=== PATIENT | male | born 1950 | race Caucasian/White ===

== ENCOUNTER 2020-01-22 20:21 | Inpatient (IN) | payer MEDICARE, OTHER, SELFPAY ==
[2020-01-22] VITALS (22 sets, daily range): BP systolic 129–221; BP diastolic 72–123; PULSE 65–82; RESP 15–26; TEMP 36.5–37; O2SAT 93–97; BMI 26.4
--- NOTE | 2020-01-22 20:24 | EKG12_ITS ---
Test Reason : STROKE Blood Pressure : / mmHG Vent. Rate : 079 BPM Atrial Rate : 079 BPM P-R Int : 138 ms QRS Dur : 094 ms QT Int : 400 ms P-R-T Axes : 050 026 034 degrees QTc Int : 458 ms Normal sinus rhythm Normal ECG Confirmed by EDU MOJICA ([id number]), editor & co founder CHANDA JAIME ([id number] on 01/24/2020 11:15:07 AM Referred By: Jie Romo Confirmed By:EDU MOJICA
--- NOTE | 2020-01-22 20:24 | CT_ITS ---
STUDY: CT BRAIN WITHOUT CONTRAST REASON FOR EXAM: Male, 69 years old. CVA RADIATION DOSAGE (If Supplied By Facility): CTDIvol = ( 60.81 ) mGy, DLP = ( 1067.08 ) mGycm TECHNIQUE: Transaxial CT imaging of the brain was performed without administration of intravenous contrast material. Individualized dose optimization techniques were used for this CT. COMPARISON: No relevant priors. FINDINGS: Normal soft tissue structures. Normal calvarium. Normal size ventricles and extra-axial spaces for the patient''s age. Mild periventricular white matter ischemic changes.. Normal basal ganglia and thalami. Normal brainstem. Normal cerebellum. There is no intracranial hemorrhage. There are no findings of an acute ischemic infarction. There is mild mucosal thickening left maxillary sinus and moderate mucosal thickening of the ethmoid air cells.. CT/Brain/Head without Contrast IMPRESSION: Mild periventricular white matter ischemic changes. No evidence for acute bleed. If concern for acute infarct MRI recommended N.B. : The above information has been verbally conveyed by Jas Santa MD to Jac Beaulieu MD, on 01/22/2020 20:55:46 (ET). Electronically Signed: aJs Santa MD at 20:54 EDT , Service support ,
--- NOTE | 2020-01-22 20:25 | ED.DCSUM_ITS ---
History of Present Illness Chief Complaint: Neuro S/Sx Informant: Patient, Family Onset: Hours Context: Sudden Onset Timing: Continuous Quality and Location: Left Arm Parasthesia, Left Leg Parasthesia, Left Arm Weakness, Left Leg Weakness Current Severity: Moderate Maximum Severity: Moderate Worsened by: Nothing Relieved by: Nothing Associated Symptoms: Negative for: Headache, Nausea Narrative: Patient is elderly male who presents with acute strokelike symptoms consistent with a right hemispheric stroke. He has weakness left upper extremity and left leg. Darted at 1915. There is no prior history to stroke. Prior similar symptoms: No Recent Illness/Hospitalization: No Past Medical History - Allergies and Home Meds Allergies/Adverse Reactions: Allergies No Known Allergies Allergy (Verified 01/22/20 20:47) Primary Care Physician: Care Physician,No Primary [Primary Care Provider] - Review of Systems General: Denies: Chills, Fever Eyes: Denies: Visual changes - bilaterally, Blurred Vision - bilaterally, Diplopia ENT: Denies: Bilateral ear pain, Rhinorrhea Cardiovascular: Denies: Chest pain, Palpitations Respiratory: Denies: Dyspnea, Cough, Dyspnea on exertion Gastrointestinal: Denies: Abdominal pain, Nausea, Vomiting, Diarrhea Genitourinary: Denies: Dysuria, Hematuria Musculoskeletal: Denies: Myalgias, Arthralgias, Neck pain, Back pain, Swelling, Extremity Pain Neurological: Reports: Weakness. Denies: Headache, Parasthesia, Numbness Endocrine: Denies: Polyuria, Polydipsia STROKE Inital Vital Signs reviewed: Yes - NIHSS Initial 1a Level of Consciousness: 0 1b LOC Questions (Score 2 if aphasic/stupor): 0 1c LOC Commands (Only score 1st attempt): 0 2 Best Gaze (If aphasic, use reflexive mvmts.): 0 3 Visual: 0 4 Facial Palsy: 0 5 Motor Arm Right (UN = amputation/fusion): 0 5 Motor Arm Left: 2 6 Motor Leg Right: 0 6 Motor Leg Left: 2 7 Limb ataxia (Only + if out of proportion): 0 8 Sensory (Aphasia/stupor=0 or 1, coma=2): 0 9 Best Language: 0 10 Dysarthria (mute, coma=2, intubated=UN): 0 11 Extinction and Inattention (only scored if +): 0 Total Score: 4 General: Well nourished, Well developed Head: Normocephalic, Atraumatic Eyes: Perrl, EOMI. Negative for: Pale conjunctiva, Scleral icterus ENT: Moist mucous membranes, No rhinorrhea Neck: Supple, Nontender, No lymphadenopathy Cardiovascular: Regular rate, Regular rhythm, No murmurs Respiratory: No distress, CTA bilaterally, Chest nontender Abdomen: Soft, Nontender, Nondistended, Normal bowel sounds Rectal: Deferred Back: Nontender, Normal Inspection Extremities: Nontender, No edema Skin: Normal color, No rash, No Trauma. Negative for: Cyanosis, Diaphoresis, Jaundice, Pallor, Rash Neurological: Alert, Oriented x3, Cranial nerves II-XII grossly intact, Normal Sensation. Negative for: Normal Strength, Normal Gait Psychological: Normal affect Diagnostic/Tx/Re-eval Impressions Head/Neck CTA 01/22/20 20:30 IMPRESSION: Mild atherosclerotic disease. No evidence for hemodynamically significant stenosis or occlusion Electronically Signed: Jas Santa MD at 21:10 EDT , Service support , ADDENDUM: 01/22/202116 IMPRESSION: Mild atherosclerotic disease. No evidence for hemodynamically significant stenosis or occlusion N.B. : The above information has been verbally conveyed by Jas Santa MD to Jac Beaulieu MD, on 01/22/2020 21:10:24 (ET). Electronically Signed: Jas Santa MD at 21:10 EDT , Service support , 01/22/20 20:24 Brain/Head without Contrast [CT] Stat 01/22/20 20:30 CTA Head AND Neck W/ Contrast [CT] Stat Laboratory Results 01/22/20 01/22/20 01/22/20 20:51 20:51 20:51 WBC 8.3 RBC 5.02 Hgb 15.0 Hct 44.2 MCV 88.0 MCH 29.9 MCHC 33.9 RDW Std Deviation 41.6 RDW Coeff of Deanne 12.8 Plt Count 188 MPV 10.6 Immature Gran % (Auto) 0.500 Neut % (Auto) 74.5 H Lymph % (Auto) 15.0 L [place] % (Auto) 7.9 Eos % (Auto) 1.4 Baso % (Auto) 0.7 Absolute Neuts (auto) 6.2 Absolute Lymphs (auto) 1.24 Nucleated RBC % 0 PT 13.7 INR 1.1 APTT 28.4 Sodium 142 Potassium 3.6 Chloride 109 H Carbon Dioxide 28.0 Anion Gap 5 BUN 18 Creatinine 1.32 H Estim Creat Clear Calc 53.56 Est GFR (MDRD) Af Amer 69 Est GFR (MDRD) Non-Af 57 L BUN/Creatinine Ratio 13.6 Glucose 123 H Calcium 8.3 L Troponin I < 0.015 - EKG Initial EKG Interpretation: Sinus Rhythm - This rhythm with a ventricular 79. The EKG is normal. IL interval 138 ms. QRS duration 94 ms. QT duration 400 ms. [place] is normal. - Medical Decision Making Stroke Team Activated: Yes Reviewed Inclusion/Exclusion criteria: Yes IV Alteplase (t-PA) Administered: Yes No contraindications for IV Alteplase (t-PA) administration.: Yes - Blood Alteplase (t-PA) risks, benefits, alternative discussed: Yes Greeted at the entrance for ambulance bay. Patient has symptoms consistent with a right hemispheric stroke. He was brought to CT for CT plus as well as CT minus scan. Stroke order set was initiated. Need to evaluate for ischemic versus embolic versus hemorrhagic stroke. Critical care time (excluding procedures): 30-74 minutes - Critical care time 34 minutes. This includes obtaining history from paramedics, patient, family, documentation of history and physical, interpretation of results discussion with consultants from [facility] and radiologist for C- scan as well as CTA of the head and neck. There is no clot noted necessitating transfer for retrieval therefore patient will be admitted to the ICU at [facility] [place]. Must control blood pressure prior to administration of TPA. She has received several doses of labetalol IV push. A Cardene drip was ordered. Patient will be admitted to the intensive care unit. Hospitalist has been made aware. ED Disposition - Plan for ED Patient: Disposition: Acute Care Hospital [facility] Diagnosis: Acute right arterial ischemic stroke, middle cerebral artery (MCA) Referrals: Care Physician,No Primary [Primary Care Provider] -
--- NOTE | 2020-01-22 20:30 | CT_ITS ---
STUDY: CTA HEAD AND NECK WITH CONTRAST REASON FOR EXAM: Male, 69 years old. CVA,LT SIDED WEAKNESS AND LT ARM DRIFT RADIATION DOSAGE (If Supplied By Facility): CTDIvol = ( 17.02 ) mGy, DLP = ( 480.17 ) mGycm TECHNIQUE: CT angiography was performed with a multi-detector CT scanner. Data acquisition was obtained from the skull base through the vertex following intravenous administration of IV 100ML ISOVUE 370. MIP images were reconstructed from the axial data set. Post-processing of the angiographic images was performed, with multiplanar reformation and 3D reconstruction. Individualized dose optimization techniques were used for this CT. COMPARISON: No relevant priors. FINDINGS: Normal bilateral petrous carotid arteries. Minor calcific plaquing of the right cavernous carotid artery with a normal supraclinoid bifurcation. Minor calcific plaquing of the left cavernous carotid artery with a normal supraclinoid bifurcation. Normal right A1 segments of the anterior cerebral artery. Normal left A1 segments of the anterior cerebral artery. Normal intact anterior communicating artery (ACOM). Normal bilateral A2 segments of the anterior cerebral arteries. Normal right M1 and M2 segments of the middle cerebral arteries, with a normal M1 bifurcation. Normal left M1 and M2 segments of the middle cerebral arteries, with a normal M1 bifurcation. Normal right posterior communicating artery (PCOM). The left posterior communicating artery is not visualized consistent with normal variant Normal bilateral vertebral arteries. Normal basilar artery with a normal basilar bifurcation. The visualized bilateral superior cerebellar (SCA) arteries are normal. Normal bilateral P1, P2 and visualized P3 segments of the posterior cerebral arteries. There is no demonstrated aneurysm of the [place]. There is no demonstrated abnormality of the visualized brain. AORTIC ARCH: Normal visualized aortic arch. Normal origins of the brachiocephalic, left common carotid, and left subclavian arteries. RIGHT CAROTID ARTERIES: Normal right common carotid artery (CCA). Minimal calcific plaquing of the right common carotid bulb. Normal origin of the right internal carotid (ICA) artery without a hemodynamically significant stenosis. Normal visualized cervical portion of the right internal carotid artery. Normal origin of the right external carotid artery (ECA). LEFT CAROTID ARTERIES: Normal left common carotid artery (CCA). Minimal calcific plaquing of the left common carotid bulb. Normal origin of the left internal carotid (ICA) artery without a hemodynamically significant stenosis. Normal visualized cervical portion of the left internal carotid artery. Normal origin of the left external carotid artery (ECA). VERTEBRAL ARTERIES: Normal bilateral vertebral arteries. CT/CTA Head AND Neck W/ Contrast IMPRESSION: Mild atherosclerotic disease. No evidence for hemodynamically significant stenosis or occlusion N.B. : The above information has been verbally conveyed by Jas Santa MD to Jac Beaulieu MD, on 01/22/2020 21:10:24 (ET). Electronically Signed: Jas Santa MD at 21:10 EDT , Service support ,
--- NOTE | 2020-01-22 20:34 | ED.RN ---
NO OLD EKGS IN MUSE
[2020-01-22] MEDS: Labetalol (Prefilled) 20 MG/4 ML IV ×2 (20:50→21:07)
--- NOTE | 2020-01-22 20:59 | CM.ED ---
Social Work Responding to stroke alert. Patient daughter, Sandrine and Kenneth present. Support provided. Patient lives at home alone and prior level of functioning was independent per daughter. Sandrine reporting that patient has been falling more in the home. Will continue to follow as needed. Melinda Quiñones MSW, [place]IL[place]
[2020-01-22 21:05] LABS: Absolute Lymphocyte Count 1.24 X10^3/uL (0.83-4.51); Absolute Neutrophil Count 6.2 X10^3/uL (2.0-7.7); Basophil# 0.06 X10^3/uL; Basophil% 0.7 % (0-1); Eosinophil# 0.12 X10^3/uL; Eosinophils% 1.4 % (0-5); Hematocrit 44.2 % (40-54); Lymphocyte # 1.24 X10^3/ul (4.0); Mean Corp Hgb Conc 33.9 g/dL (32-36); Mean Corpuscular Hgb 29.9 pg (27.0-32.0); Mean Platelet Vol. 10.6 fl (6.2-12.0); Monocyte# 0.65 X10^3/uL; Monocyte% 7.9 % (0-10); NRBC Flagged by Analyzer 0 % (0-5); Neutrophil # 6.17 X10^3/uL (2.7-7.7); Neutrophil % 74.5 % (47-70); Platelet Count 188 K/mm3 (150-450); RBC Distribution Width CV 12.8 % (11.6-14.6); RBC Distribution Width SD 41.6 fl (35.1-43.9); Red Blood Count 5.02 M/mm3 (4.6-6.2); White Blood Count 8.3 K/mm3 (4.4-11.0)
[2020-01-22 21:14] LABS: International Normalized Ratio 1.1; Partial Thromboplast Time 28.4 Seconds (24.1-36.2); Prothrombin Time (Protime)PT. 13.7 SECONDS (11.7-14.9)
[2020-01-22 21:21] LABS: Anion Gap 5 (5-15); BUN 18 mg/dL (7-18); BUN/Creat Ratio 13.6 RATIO (10-20); Calcium,Total 8.3 mg/dL (8.5-10.1); Chloride 109 mmol/L (98-107); Creatinine, Serum 1.32 mg/dL (0.70-1.30); EST Glomerular Filtration Rate 57 mL/min (>60); Est Glom Filt Rate - Afr Amer 69 mL/min (>60); Estimated Creatinine Clearance 53.56 ml/min; Glucose 123 mg/dL (74-106); Potassium 3.6 mmol/L (3.5-5.1); Sodium Level 142 mmol/L (136-145)
--- NOTE | 2020-01-22 22:10 | RAD_ITS ---
STUDY: X-RAY CHEST REASON FOR EXAM: Male, 69 years old. neuro, left sided weakness and arm drift TECHNIQUE: AP portable COMPARISON: None. FINDINGS: Nonspecific elevation right hemidiaphragm. Lungs are clear.. There is no demonstrated pleural abnormality. Normal size heart. Normal mediastinum and dung. Normal visualized pulmonary arteries. Normal visualized aortic arch and descending thoracic aorta. Dorsal spine and shoulders demonstrate degenerative change. Normal visualized ribs, clavicles, and clavicles. There is no demonstrated abnormality of the visualized soft tissue structures of the upper abdomen. RAD/Chest 1 View (Portable) IMPRESSION: No acute cardiopulmonary pathology Electronically Signed: Jas Santa MD at 22:20 EDT , Service support ,
[2020-01-22 22:28] LABS: AST(SGOT) 16 U/L (15-37); Alanine Aminotransfer ALT/SGPT 20 U/L (16-61); Alkaline Phosphatase 63 U/L (45-117); Bilirubin, Direct 0.22 mg/dL (0.00-0.30); Globulin 3.1 g/dL (2.2-4.2); Protein, Total 6.1 g/dL (6.4-8.2)
[2020-01-22 22:31] LABS: Lactic Acid 1.2 mmol/L (0.4-1.9)
[2020-01-22 22:47] LABS: Probe Check PASS; Specimen Processing Control PASS
--- NOTE | 2020-01-22 23:32 | HP.PCM_ITS ---
History of Present Illness Date of Admission: 01/22/20 Chief Complaint: left sided weakness The patient is a 69 year old M with no significant PMH. He has not seen a doctor in about 6 years according to his daughters. He was admitted through the ED on 01/22/2020 with a complaint of left-sided weakness. His lunch normal was around 7 PM on day of admission. Patient states he was trying to get up but realized that his left side was very weak and he could not get up on his own. He denied any headache, blurred vision, numbness or tingling, any mouth droop or any blurred vision though his daughter said that he had slurred speech at the time that they found him. He is never had such symptoms before. He denied any chest pain, nausea vomiting or palpitations. Review of symptoms otherwise negative. The EMS was called and patient was brought into the ED where stroke alert was called. Brain CT done showed no evidence of acute infarct or acute bleed and only showed mild periventricular white matter ischemic changes. CTA of the head and neck showed mild atherosclerotic disease and no evidence of he modynamically significant stenosis or occlusion. Chest x-ray also showed no acute cardiopulmonary pathology. NIH stroke scale on admission was 4. Tele- stroke was initiated with [facility] neurology and decision was made for patient to have TPA. Patient's blood pressure was markedly elevated on admission and he required nicardipine drip to bring down the blood pressure prior to administration of TPA. He was admitted after he received TPA to the ICU to be managed for acute CVA. Past Medical History Allergies No Known Allergies Allergy (Verified 01/22/20 20:47) Home Medications: Ambulatory Orders Medication Instructions Recorded NK 01/22/20 Surgical History: no surgical history Psychiatric History: No pertinent psych hx Lives: Alone Smoking Status: Heavy Smoker (>10/day) Tobacco Use: Cigarettes Alcohol: None Drugs: None - *Family History Maternal History Items: Cancer, Hypertension Paternal History Items: Cancer Review of Systems Constitutional: Denies: Chills, Fever, Malaise, Weakness, Weight Change Eyes: Denies: Blurred vision, Vision Change HEENT: Denies: Head Aches, Sinus Congestion, Sinus Drainage Cardiovascular: Denies: Chest Pain, Palpitations Respiratory: Denies: Cough, Shortness of Breath, Shortness of breath at rest, Shortness of breath upon exertion, Sputum production Gastrointestinal: Denies: Abdominal Pain, Nausea, Vomiting Genitourinary: Denies: Dysuria Musculoskeletal: Denies: Joint Pain, Joint Tenderness Skin: Denies: Rash, Wounds Neurological: Reports: Slurred speech, Focal weakness. Denies: Blurred vision, Numbness, Tingling Psychiatric: Denies: Anxiety, Depression, Homicidal Ideations, Suicidal Ideations Hematologic/ Lymphatic: Denies: Easy Bruising, Easy Bleeding VTE Information - Inpt Only VTE Present on Admission: No VTE Pharm Prophylaxis ordered?: Yes Patient Problems: Active and Suspected Problems Acute right arterial ischemic stroke, middle cerebral artery (MCA) (Acute) - Physical Exam Vitals/I&O's: Vital Signs Temp Pulse Resp BP Pulse Ox 98.5 F 70 22 H 132/79 H 94 01/22/20 23:08 01/22/20 23:08 01/22/20 23:08 01/22/20 23:08 01/22/20 23:08 Oxygen Delivery Method Room Air Weight: 179 lb 7.3 oz Body Mass Index (BMI) 26.4 Finger Stick Blood Glucose 110 Intake and Output for Last 24 Hours 01/20/20 01/21/20 01/22/20 23:59 23:59 23:59 Intake Total 80.17 / 80.17 Balance 80.17 / 80.17 General: Alert, Oriented x3, Cooperative, No apparent distress HEENT: Atraumatic, PERRLA, EOMI, Normocephalic Oral: Dry Mucosa Neck: Supple, No JVD, Negative Carotid Bruits Lungs: Clear to auscultation, Normal air movement, No rhonchi, No wheeze, No rales Cardiovascular: Regular rate, Regular Rhythm, Normal S1, Normal S2, No murmurs Abdomen: Bowel Sounds Present, Soft, Non Tender, Non-Distended, No Hepato- splenomegaly Extremities: No clubbing, No cyanosis, No edema, Capillary Refill Less than 3 Seconds Skin: No rashes, No breakdown Musculoskeletal: No Tenderness to Palpation of Joints or Extremities Lymphatic: No Cervical, Supraclavicular, or Inguinal Adenopathy Neurological: Cranial nerves II-XII grossly intact, Deep Tendon Reflexes 2+/4 and Symmetrical, - - power in LUE and LLE is 4-/5. Normal tone and reflexes. NIHSS is 1 Psych/Mental Status: Normal Affect, Appropriate, Alert and oriented to time, place, person, mood and affect Laboratory Results 01/22/20 20:51: WBC 8.3, RBC 5.02, Hgb 15.0, Hct 44.2, MCV 88.0, MCH 29.9, MCHC 33.9, RDW Std Deviation 41.6, RDW Coeff of Deanne 12.8, Plt Count 188, MPV 10.6, Immature Gran % (Auto) 0.500, Neut % (Auto) 74.5 H, Lymph % (Auto) 15.0 L, [place] % (Auto) 7.9, Eos % (Auto) 1.4, Baso % (Auto) 0.7, Absolute Neuts (auto) 6.2, Absolute Lymphs (auto) 1.24, Nucleated RBC % 0 01/22/20 20:51: PT 13.7, INR 1.1, APTT 28.4 01/22/20 20:51: Sodium 142, Potassium 3.6, Chloride 109 H, Carbon Dioxide 28.0, Anion Gap 5, BUN 18, Creatinine 1.32 H, Estim Creat Clear Calc 53.56, Est GFR (MDRD) Af Amer 69, Est GFR (MDRD) Non-Af 57 L, BUN/Creatinine Ratio 13.6, Glucose 123 H, Calcium 8.3 L, Troponin I < 0.015 01/22/20 20:51: Total Bilirubin 0.70, Direct Bilirubin 0.22, AST 16, ALT 20, Alkaline Phosphatase 63, Total Protein 6.1 L, Albumin 3.0 L, Globulin 3.1 01/22/20 21:35: COVID-19 (NATA) Negative 01/22/20 21:55: Lactic Acid 1.[address] 01/22/20 20:24 IMPRESSION: Mild periventricular white matter ischemic changes. No evidence for acute bleed. If concern for acute infarct MRI recommended N.B. : The above information has been verbally conveyed by Jas Santa MD to Jac Beaulieu MD, on 01/22/2020 20:55:46 (ET). Electronically Signed: Jas Santa MD at 20:54 EDT , Service support , Head/Neck CTA 01/22/20 20:30 IMPRESSION: Mild atherosclerotic disease. No evidence for hemodynamically significant stenosis or occlusion N.B. : The above information has been verbally conveyed by Jas Santa MD to Jac Beaulieu MD, on 01/22/2020 21:10:24 (ET). Electronically Signed: Jas Santa MD at 21:10 EDT , Service support , Chest X-Ray 01/22/20 22:10 IMPRESSION: No acute cardiopulmonary pathology Electronically Signed: Jas Santa MD at 22:20 EDT , Service support , Current Medications Acetaminophen (Tylenol) 650 mg PO .X1 PRN PRN Reason: Temp > 99.6 F Diphenhydramine HCl (Benadryl) 50 mg IV .X1 PRN PRN Reason: Allergic Reaction Stop: 01/24/20 21:03 Epinephrine HCl () 0.3 mg IM .X1 PRN PRN Reason: Allergic Reaction Stop: 01/24/20 21:03 Sodium Chloride () 1,000 mls @ 100 mls/hr IV .Q10H WILMER Famotidine 20 mg/ Sodium (Chloride) 10 mls @ 300 mls/hr IV .X1 PRN PRN Reason: Allergic Reaction Stop: 01/24/20 21:03 Nicardipine/Dextrose (Cardene-Dex 20 Mg/200 Ml Soln) 20 mg in 200 mls @ 50 mls/hr IV .Q4H PRN; Protocol PRN Reason: See Instructions Last Titration: 01/22/20 21:46 Dose: 5 mg/hr, 50 mls/hr Documented by: Labetalol HCl (Trandate) 20 mg IV X1 PRN PRN Reason: BLOOD PRESSURE Last Admin: 01/22/20 21:07 Dose: 20 mg Documented by: Labetalol HCl (Trandate) 20 mg IV X1 PRN; Protocol PRN Reason: BLOOD PRESSURE Methylprednisolone (Solu-Medrol) 125 mg IV .X1 PRN PRN Reason: Allergic Reaction Stop: 01/24/20 21:03 Assessment/Plan All Active Problems Acute right arterial ischemic stroke, middle cerebral artery (MCA) (Acute) 69 y/o admitted with a complaint of left sided weakness 1. Acute CVA * NIH stroke scale on admission was 4. Tele-stroke consult done with [facility] and decision was made to give TPA. * Patient is status post TPA after he received nicardipine drip to bring down blood pressure. * Admit to ICU as he is post TPA. * Continue NIH stroke scale. * Consult critical care and neurology. * CT of the brain showed no acute infarct or bleed and CTA of the head and neck showed only mild atherosclerotic disease. * To obtain MRI of the brain tomorrow. * To get 2D echo. * PT OT consults. Fall precautions. * Check lipid panel and A1c. * Hold off on aspirin and Plavix for now until at least 24 hours after TPA. Give high intensity statin 40 mg of atorvastatin. * 2. Hypertensive emergency * Blood pressure was markedly elevated at a peak of 221/118 at time of admission. He received IV labetalol push but this did not bring down blood pressures were required nicardipine drip to bring blood pressure below 185/105. * Patient currently still on nicardipine drip. Will wean off nicardipine drip and start patient on oral blood pressure medications. * He does not know he is hypertensive as he has not seen a doctor in over 6 years. * 2D echo ordered. * 3. NATALI: Creatinine is 1.32. No baseline is known. Should improve with gentle hydration. DVT prophylaxis: SCDs for now. No anticoagulation as he received TPA. CODE STATUS: Full code * Patient and daughters counseled extensively about different types of CODE STA TUS including full code, DNR CCA and DNR CCA. Patient elects to be full code. * Total [id number] time 17 minutes. Inpatient E&M: 86022 Init Hosp L3 Procedures: 17392 Advncd Care Plan 30 Min
--- NOTE | 2020-01-22 23:43 | ED.RN ---
report called to agricultural equipment test engineerepifanio joe
[2020-01-23] VITALS (64 sets, daily range): BP systolic 110–184; BP diastolic 59–111; PULSE 61–74; RESP 17–26; TEMP 36.3–36.7; O2SAT 93–99; BMI 26.1
--- NOTE | 2020-01-23 00:25 | ED.RN ---
preformed NIH in ICU with YISEL RN. Upon arrival to icu and transferring pt, this nurse noticed a bump and abrasion on left wrist. PT stated it doesn't hurt i thought i fell the other way. Pt did say he fell at home but could not remember which side he hit. This information was relayed to YISEL SEGMENTAL WALL INSTALLER.
[2020-01-23] MEDS: Atorvastatin Calcium 80 MG Tablet PO ×2 (00:32→21:09)
[2020-01-23] MEDS: 0.9% Normal Saline 1,000 ML 100 ML IV ×3 (00:43→20:02)
[2020-01-23 05:19] LABS: Absolute Lymphocyte Count 1.78 X10^3/uL (0.83-4.51); Absolute Neutrophil Count 5.9 X10^3/uL (2.0-7.7); Basophil# 0.05 X10^3/uL; Basophil% 0.6 % (0-1); Eosinophil# 0.14 X10^3/uL; Eosinophils% 1.6 % (0-5); Hematocrit 48.3 % (40-54); Hemoglobin 16.2 g/dL (13.0-16.5); Lymphocyte # 1.78 X10^3/ul (4.0); Lymphocyte % 20.9 % (19-41); Mean Corp Hgb Conc 33.5 g/dL (32-36); Mean Corpuscular Hgb 29.7 pg (27.0-32.0); Mean Corpuscular Volume 88.5 fL (80-94); Mean Platelet Vol. 10.6 fl (6.2-12.0); Monocyte# 0.63 X10^3/uL; Monocyte% 7.4 % (0-10); NRBC Flagged by Analyzer 0 % (0-5); Neutrophil # 5.88 X10^3/uL (2.7-7.7); POSITIVE COUNT YES; Platelet Count 143 K/mm3 (150-450); RBC Distribution Width CV 12.9 % (11.6-14.6); RBC Distribution Width SD 41.9 fl (35.1-43.9); Red Blood Count 5.46 M/mm3 (4.6-6.2); White Blood Count 8.5 K/mm3 (4.4-11.0)
[2020-01-23 05:41] LABS: Cholesterol 190 mg/dL (200); High Density Lipoprotein 29 mg/dL; Triglycerides 143 mg/dL; Very Low Density Lipoprotein 29 mg/dL (5-40)
--- NOTE | 2020-01-23 07:00 | ECHOD_ITS ---
Reason For Study: TIA/CVA Procedure This was a 2D Doppler, Color Flow transthoracic echocardiogram. Contrast injection was performed. Exam performed portable in ICU/CCU. Left Ventricle Moderate concentric left ventricular hypertrophy. The estimated ejection fraction is 65 %. Stage 1 diastolic dysfunction. No regional wall motion abnormalities noted. Right Ventricle Normal size and thickness. Normal systolic function. Atria Normal left atrium. Normal right atrium. Normal atrial septum. Bubble contrast study negative for right to left interatrial shunt. Mitral Valve The mitral valve is structurally normal. No prolapse or stenosis seen. Mild (1+) mitral valve insufficiency. Tricuspid Valve Normal tricuspid valve. Trivial tricuspid valve insufficiency. Unable to estimate RV systolic pressure due to insufficient tricuspid regurgitant envelope. Aortic Valve Trisinus/trileaflet aortic valve. Mild diffuse aortic valve thickening. There is no aortic stenosis. Trivial aortic valve insufficiency. Pulmonic Valve The pulmonic valve is not well visualized. Great Vessels Normal aortic root. Normal arch. Normal inferior vena cava. Inferior vena cava collapse with sniff. Pericardium/Pleural No pericardial effusion. Medication Performed a rapid injection of agitated mix of 9 cc saline and 1cc air to assess for atrial septal defect. MMode/2D Measurements & Calculations LVIDd: 4.4 cm IVSd: 1.8 cm Ao root diam: 4.1 cm LVIDs: 3.2 cm LVPWd: 1.4 cm LA dimension: 4.0 cm FS: 27.5 % LAV(MOD-bp): 45.3 ml LA A4 area: 16.2 cm2 LAV(MOD-bp) Indexed: 23.2 ml/m2 LAV(MOD-sp2): 48.8 ml LAV(MOD-sp4): 40.8 ml Time Measurements MV dec time: 0.24 sec Doppler Measurements & Calculations MV E max alex: 50.1 cm/sec Lat Peak E' Alex: 5.7 cm/sec Med Peak E' Alex: 5.8 cm/sec MV A max alex: 97.2 cm/sec E/E' lat: 8.7 E/E' med: 8.6 MV E/A: 0.52 MV V2 max: 104.0 cm/sec MV P1/2t max alex: 62.6 cm/sec Ao V2 max: 139.8 cm/sec MV max P.3 mmHg MV P1/2t: 129.1 msec Ao max P.8 mmHg MV V2 mean: 50.8 cm/sec MV dec slope: 142.0 cm/sec2 Ao V2 mean: 87.6 cm/sec MV mean P.2 mmHg Ao mean P.7 mmHg MV V2 VTI: 28.9 cm MVA(P1/2t): 1.7 cm2 Ao V2 VTI: 27.4 cm AI max alex: 285.3 cm/sec LV V1 max: 103.2 cm/sec MR max alex: 609.7 cm/sec AI max P.7 mmHg LV V1 max P.3 mmHg MR max P.7 mmHg AI dec slope: 92.4 cm/sec2 LV V1 mean P.0 mmHg MR mean alex: 447.1 cm/sec AI P1/2t: 904.1 msec LV V1 mean: 64.2 cm/sec MR mean P.4 mmHg LV V1 VTI: 22.5 cm MR VTI: 208.1 cm PA V2 max: 99.2 cm/sec Interpretation Summary Moderate concentric left ventricular hypertrophy. The estimated ejection fraction is 65 %. Stage 1 diastolic dysfunction. Mild (1+) mitral valve insufficiency. Trivial tricuspid valve insufficiency. Unable to estimate RV systolic pressure due to insufficient tricuspid regurgitant envelope. There is no aortic stenosis. Trivial aortic valve insufficiency. Bubble contrast study negative for right to left interatrial shunt. There is no comparison study available. Ordering Physician: Jie Romo Referring Physician: Jie Romo Performed By: Stuart Rushing RCS
--- NOTE | 2020-01-23 08:24 | CON.PCM_ITS ---
Reason for Consult Date of Consultation: 01/23/20 Reason for Consultation: CVA s/p TPA History of Present Illness: The patient is a 69-year-old male, with a history as outlined below, who presented to the emergency department on January 21 with complaints of left-sided paresthesias and weakness. Initial NIH score was noted to be 4. The patient has no known prior medical history. On presentation to the emergency department, the patient was noted to be afebrile but was significantly hypertensive. He was maintaining appropriate oxygen saturations on room air. Laboratory evaluation revealed a normal white blood cell count. Coagulation profile was within normal limits. Creatinine was elevated at 1.32. Lactate was within normal limits. Troponin was negative. Coronavirus PCR was negative. CT head revealed mild periventricular white matter ischemic changes. CTA head and neck revealed no evidence for hemodynamically significant stenosis or occlusion. Tele-neurology consultation was obtained and the patient was deemed to be appropriate for TPA administration. Following this, the patient was admitted to the medical intensive care unit for further management. Of note, the patient did for a period of time have to be maintained on nicardipine in order to improve his hemodynamic status to allow for TPA administration. Past Medical History Allergies No Known Allergies Allergy (Verified 01/22/20 20:47) Home Medications: Ambulatory Orders Medication Instructions Recorded NK 01/22/20 Surgical History: no surgical history Psychiatric History: No pertinent psych hx Lives: Alone Smoking Status: Heavy Smoker (>10/day) Tobacco Use: Cigarettes Alcohol: None Drugs: None - *Family History Maternal History Items: Cancer, Hypertension Paternal History Items: Cancer Review of Systems Constitutional: Denies: Chills, Fever, Weight Change HEENT: Denies: Head Aches, Sinus Congestion, Sinus Drainage Cardiovascular: Denies: Chest Pain, Palpitations Respiratory: Denies: Cough, Shortness of breath at rest, Sputum production Gastrointestinal: Denies: Abdominal Pain, Nausea, Vomiting Genitourinary: Denies: Dysuria Musculoskeletal: Denies: Joint Pain, Joint Tenderness Skin: Denies: Rash, Wounds Neurological: Reports: Change in Speech, Focal weakness Psychiatric: Denies: Anxiety, Depression, Homicidal Ideations, Suicidal Ideations Hematologic/ Lymphatic: Denies: Easy Bruising, Easy Bleeding Patient Problems: Active and Suspected Problems Acute right arterial ischemic stroke, middle cerebral artery (MCA) (Acute) Objective: The patient's most recent lab work, culture data and imaging studies have all been personally reviewed. - Physical Exam Vitals/I&O's: Vital Signs Temp Pulse Resp BP Pulse Ox 97.7 F L 66 21 H 158/99 H 99 01/23/20 04:15 01/23/20 07:15 01/23/20 07:15 01/23/20 07:15 01/23/20 07:15 Oxygen Delivery Method Room Air Weight: 176 lb 12.972 oz Body Mass Index (BMI) 26.1 Finger Stick Blood Glucose 110 Intake and Output for Last 24 Hours 01/21/20 01/22/20 01/23/20 23:59 23:59 23:59 Intake Total 80.17 / 191.84 1049.17 / 1049.17 Output Total 550 / 550 Balance 80.17 / 191.84 499.17 / 499.17 General: Alert, Cooperative, No apparent distress HEENT: Atraumatic, Normocephalic Oral: No Gingival or Mucosal Lesions/ Ulcerations Neck: Supple, No Nodes, Trachea Midline Lungs: Normal air movement, No rhonchi, No wheeze, No rales Cardiovascular: Regular rate, Regular Rhythm, Normal S1, Normal S2 Abdomen: Bowel Sounds Present, Soft, Non Tender Extremities: No clubbing, No cyanosis, No edema Skin: No breakdown Musculoskeletal: No Muscle Wasting Lymphatic: No Cervical, Supraclavicular, or Inguinal Adenopathy Neurological: - - Focal left upper extremity weakness Psych/Mental Status: Normal Affect, Appropriate Labs (Last 48 Hours) 01/22/20 01/22/20 01/22/20 20:51 20:51 20:51 WBC 8.3 RBC 5.02 Hgb 15.0 Hct 44.2 MCV 88.0 MCH 29.9 MCHC 33.9 RDW Std Deviation 41.6 RDW Coeff of Deanne 12.8 Plt Count 188 MPV 10.6 Immature Gran % (Auto) 0.500 Neut % (Auto) 74.5 H Lymph % (Auto) 15.[address] [place] % (Auto) 7.9 Eos % (Auto) 1.4 Baso % (Auto) 0.7 Absolute Neuts (auto) 6.2 Absolute Lymphs (auto) 1.24 Nucleated RBC % 0 PT 13.7 INR 1.1 APTT 28.4 Sodium 142 Potassium 3.6 Chloride 109 H Carbon Dioxide 28.0 Anion Gap 5 BUN 18 Creatinine 1.32 H Estim Creat Clear Calc 53.56 Est GFR (MDRD) Af Amer 69 Est GFR (MDRD) Non-Af 57 L BUN/Creatinine Ratio 13.6 Glucose 123 H Lactic Acid Calcium 8.3 L Total Bilirubin Direct Bilirubin AST ALT Alkaline Phosphatase Troponin I < 0.015 Total Protein Albumin Globulin Triglycerides Cholesterol LDL Cholesterol VLDL Cholesterol HDL Cholesterol COVID-19 (NATA) 01/22/20 01/22/20 01/22/20 20:51 21:35 21:55 WBC RBC Hgb Hct MCV MCH MCHC RDW Std Deviation RDW Coeff of Deanne Plt Count MPV Immature Gran % (Auto) Neut % (Auto) Lymph % (Auto) [place] % (Auto) Eos % (Auto) Baso % (Auto) Absolute Neuts (auto) Absolute Lymphs (auto) Nucleated RBC % PT INR APTT Sodium Potassium Chloride Carbon Dioxide Anion Gap BUN Creatinine Estim Creat Clear Calc Est GFR (MDRD) Af Amer Est GFR (MDRD) Non-Af BUN/Creatinine Ratio Glucose Lactic Acid 1.2 Calcium Total Bilirubin 0.70 Direct Bilirubin 0.22 AST 16 ALT 20 Alkaline Phosphatase 63 Troponin I Total Protein 6.1 L Albumin 3.0 L Globulin 3.1 Triglycerides Cholesterol LDL Cholesterol VLDL Cholesterol HDL Cholesterol COVID-19 (NATA) Negative 01/23/20 01/23/20 01/23/20 00:20 05:00 05:00 WBC 8.5 RBC 5.46 Hgb 16.2 Hct 48.3 MCV 88.5 MCH 29.7 MCHC 33.5 RDW Std Deviation 41.9 RDW Coeff of Deanne 12.9 Plt Count 143 L MPV 10.6 Immature Gran % (Auto) 0.500 Neut % (Auto) 69.0 Lymph % (Auto) 20.9 [place] % (Auto) 7.4 Eos % (Auto) 1.6 Baso % (Auto) 0.6 Absolute Neuts (auto) 5.9 Absolute Lymphs (auto) 1.78 Nucleated RBC % 0 PT INR APTT Sodium Potassium Chloride Carbon Dioxide Anion Gap BUN Creatinine Estim Creat Clear Calc Est GFR (MDRD) Af Amer Est GFR (MDRD) Non-Af BUN/Creatinine Ratio Glucose Lactic Acid Calcium Total Bilirubin Direct Bilirubin AST ALT Alkaline Phosphatase Troponin I < 0.015 Total Protein Albumin Globulin Triglycerides 143 Cholesterol 190 LDL Cholesterol 132 H VLDL Cholesterol 29 HDL Cholesterol 29 L COVID-19 (NATA) Microbiology 01/22/20 21:35 Mucosa - Nasopharyngeal Respiratory Panel (PCR) - Final Clinical Impression(s) from Imaging Studies Brain CT 01/22/20 20:24 IMPRESSION: Mild periventricular white matter ischemic changes. No evidence for acute bleed. If concern for acute infarct MRI recommended N.B. : The above information has been verbally conveyed by Jas Santa MD to Jac Beaulieu MD, on 01/22/2020 20:55:46 (ET). Electronically Signed: Jas Santa MD at 20:54 EDT , Service support , Head/Neck CTA 01/22/20 20:30 IMPRESSION: Mild atherosclerotic disease. No evidence for hemodynamically significant stenosis or occlusion N.B. : The above information has been verbally conveyed by Jas Santa MD to Jac Beaulieu MD, on 01/22/2020 21:10:24 (ET). Electronically Signed: Jas Santa MD at 21:10 EDT , Service support , Chest X-Ray 01/22/20 22:10 IMPRESSION: No acute cardiopulmonary pathology Electronically Signed: Jas Santa MD at 22:20 EDT , Service support , Current Medications Acetaminophen (Tylenol) 650 mg PO .X1 PRN PRN Reason: Temp > 99.6 F Atorvastatin Calcium (Lipitor) 80 mg PO QHS [facility] Last Admin: 01/23/20 00:32 Dose: 80 mg Documented by: Dextrose (D50w Syringe) 0 gm IV X1 PRN; Protocol PRN Reason: Hypoglycemia Diphenhydramine HCl (Benadryl) 50 mg IV .X1 PRN PRN Reason: Allergic Reaction Stop: 01/24/20 21:03 Epinephrine HCl () 0.3 mg IM .X1 PRN PRN Reason: Allergic Reaction Stop: 01/24/20 21:03 Glucagon () 1 mg IM .X1 PRN PRN Reason: Hypoglycemia Hydralazine HCl (Apresoline Iv) 5 mg IV Q30M PRN PRN Reason: to maintain BP goals Sodium Chloride () 1,000 mls @ 100 mls/hr IV .Q10H [facility] Last Infusion: 01/23/20 05:19 Dose: 100 mls/hr Documented by: Famotidine 20 mg/ Sodium (Chloride) 10 mls @ 300 mls/hr IV .X1 PRN PRN Reason: Allergic Reaction Stop: 01/24/20 21:03 Nicardipine/Dextrose (Cardene-Dex 20 Mg/200 Ml Soln) 20 mg in 200 mls @ 50 mls/hr IV .Q4H PRN; Protocol PRN Reason: See Instructions Last Titration: 01/23/20 04:15 Dose: 0 mg/hr, 0 mls/hr Documented by: Sodium Chloride () 250 mls @ 15 mls/hr IV .[id number] PRN PRN Reason: Saline Flush Sodium Chloride () 250 mls @ 15 mls/hr IV .[id number] PRN PRN Reason: Additional IVPB Infusion Labetalol HCl (Trandate) 20 mg IV X1 PRN PRN Reason: BLOOD PRESSURE Last Admin: 01/22/20 21:07 Dose: 20 mg Documented by: Labetalol HCl (Trandate) 20 mg IV X1 PRN; Protocol PRN Reason: BLOOD PRESSURE Methylprednisolone (Solu-Medrol) 125 mg IV .X1 PRN PRN Reason: Allergic Reaction Stop: 01/24/20 21:03 Nitroglycerin (Nitrostat) 0.4 mg SUBLINGUAL Q5M PRN PRN Reason: CARDIAC/CHEST PAIN Ondansetron HCl (Zofran) 4 mg IV Q8H PRN PRN PRN Reason: NAUSEA/VOMITING Sodium Chloride () 10 - 40 ml IV UD PRN PRN Reason: SALINE FLUSH Assessment/Plan Active and Suspected Problems Acute right arterial ischemic stroke, middle cerebral artery (MCA) (Acute) RECOMMENDATIONS: 1. Continue to monitor patient in ICU setting post TPA per protocol. 2. Echocardiogram is pending. 3. Maintain systolic blood pressures less than 185 mmHg. 4. Repeat head imaging due tonight. 5. PT/OT evaluations tomorrow. IMPRESSIONS: 1. Acute ischemic CVA status post TPA Continue monitoring in ICU setting per protocol. Maintain systolic pressure less than 185 mmHg. Repeat head imaging is due later this evening. Surface echocardiogram is pending. PT/OT/speech evaluations to be completed once repeat head imaging is done. Continue statin. 2. Hypertensive emergency The patient initially had to be maintained on a Cardene drip in order to control his hemodynamics to allow for TPA administration. The nicardipine has subsequently been weaned off and the patient's blood pressures have remained stable. This note was generated with [employer] dictation software. It may contain incorrect words, spelling, and punctuation that were not noted in checking the note before signing. Inpatient E&M: 58301 Init Hosp L3
--- NOTE | 2020-01-23 10:17 | PN_ITS ---
Patient Problems: Active and Suspected Problems Acute right arterial ischemic stroke, middle cerebral artery (MCA) (Acute) Reason for Visit: Acute ischemic stroke status post TPA Objective: Patient was admitted last night with left-sided weakness. Denies loss of vision, hemianopsia, quadrantanopsia, dysphagia, dysarthria or language deficit. No headache or loss of sensation. Patient still has a left upper extremity weakness Physical exam General: Alert, Oriented x3, Cooperative HEENT: Atraumatic, PERRLA, EOMI, Normocephalic Oral: No Gingival or Mucosal Lesions/ Ulcerations Neck: Supple, No JVD, Negative Carotid Bruits Lungs: Air entry equal in bilateral lung bases. No crepitation/rhonchi Cardiovascular: Regular rate, Regular Rhythm, Normal S1, Normal S2, No murmurs Abdomen: Bowel Sounds Present, Soft, Non Tender, Non-Distended : No renal angle tenderness. No suprapubic tenderness. Extremities: No edema, Capillary Refill Less than 3 Seconds Skin: No rashes, No breakdown Musculoskeletal: No Tenderness to Palpation of Joints or Extremities Neurological: Cranial nerves II-XII grossly intact, Deep Tendon Reflexes 2+/4 and Symmetrical, left upper extremity falls immediately, NIH stroke scale 3 Psych/Mental Status: Normal Affect, Appropriate. Vitals/I&O's: Vital Signs Temp Pulse Resp BP Pulse Ox 97.3 F L 68 26 H 163/96 H 95 01/23/20 08:15 01/23/20 08:15 01/23/20 08:15 01/23/20 08:15 01/23/20 08:15 Oxygen Delivery Method Room Air Weight: 176 lb 12.972 oz Body Mass Index (BMI) 26.1 Finger Stick Blood Glucose 110 Intake and Output for Last 24 Hours 01/21/20 01/22/20 01/23/20 23:59 23:59 23:59 Intake Total 80.17 / 191.84 1049.17 / 1049.17 Output Total 675 / 675 Balance 80.17 / 191.84 374.17 / 374.17 Microbiology Past 72 Hours 01/22/20 21:35 Mucosa - Nasopharyngeal Respiratory Panel (PCR) - Final Laboratory Results 01/22/20 20:51: WBC 8.3, RBC 5.02, Hgb 15.0, Hct 44.2, MCV 88.0, MCH 29.9, MCHC 33.9, RDW Std Deviation 41.6, RDW Coeff of Deanne 12.8, Plt Count 188, MPV 10.6, Immature Gran % (Auto) 0.500, Neut % (Auto) 74.5 H, Lymph % (Auto) 15.0 L, [place] % (Auto) 7.9, Eos % (Auto) 1.4, Baso % (Auto) 0.7, Absolute Neuts (auto) 6.2, Absolute Lymphs (auto) 1.24, Nucleated RBC % 0 01/22/20 20:51: PT 13.7, INR 1.1, APTT 28.4 01/22/20 20:51: Sodium 142, Potassium 3.6, Chloride 109 H, Carbon Dioxide 28.0, Anion Gap 5, BUN 18, Creatinine 1.32 H, Estim Creat Clear Calc 53.56, Est GFR (M DRD) Af Amer 69, Est GFR (MDRD) Non-Af 57 L, BUN/Creatinine Ratio 13.6, Glucose 123 H, Calcium 8.3 L, Troponin I < 0.015 01/22/20 20:51: Total Bilirubin 0.70, Direct Bilirubin 0.22, AST 16, ALT 20, Alkaline Phosphatase 63, Total Protein 6.1 L, Albumin 3.0 L, Globulin 3.1 01/22/20 21:35: COVID-19 (NATA) Negative 01/22/20 21:55: Lactic Acid 1.2 01/23/20 00:20: Troponin I < 0.015 01/23/20 05:00: WBC 8.5, RBC 5.46, Hgb 16.2, Hct 48.3, MCV 88.5, MCH 29.7, MCHC 33.5, RDW Std Deviation 41.9, RDW Coeff of Deanne 12.9, Plt Count 143 L, MPV 10.6, Immature Gran % (Auto) 0.500, Neut % (Auto) 69.0, Lymph % (Auto) 20.9, [place] % (Auto) 7.4, Eos % (Auto) 1.6, Baso % (Auto) 0.6, Absolute Neuts (auto) 5.9, Absolute Lymphs (auto) 1.78, Nucleated RBC % 0 01/23/20 05:00: Triglycerides 143, Cholesterol 190, LDL Cholesterol 132 H, VLDL Cholesterol 29, HDL Cholesterol 29 L Current Medications Acetaminophen (Tylenol) 650 mg PO .X1 PRN PRN Reason: Temp > 99.6 F Atorvastatin Calcium (Lipitor) 80 mg PO QHS [facility] Last Admin: 01/23/20 00:32 Dose: 80 mg Documented by: Dextrose (D50w Syringe) 0 gm IV X1 PRN; Protocol PRN Reason: Hypoglycemia Diphenhydramine HCl (Benadryl) 50 mg IV .X1 PRN PRN Reason: Allergic Reaction Stop: 01/24/20 21:03 Epinephrine HCl () 0.3 mg IM .X1 PRN PRN Reason: Allergic Reaction Stop: 01/24/20 21:03 Glucagon () 1 mg IM .X1 PRN PRN Reason: Hypoglycemia Hydralazine HCl (Apresoline Iv) 5 mg IV Q30M PRN PRN Reason: to maintain BP goals Sodium Chloride () 1,000 mls @ 100 mls/hr IV .Q10H [facility] Last Admin: 01/23/20 09:01 Dose: Not Given Documented by: Famotidine 20 mg/ Sodium (Chloride) 10 mls @ 300 mls/hr IV .X1 PRN PRN Reason: Allergic Reaction Stop: 01/24/20 21:03 Nicardipine/Dextrose (Cardene-Dex 20 Mg/200 Ml Soln) 20 mg in 200 mls @ 50 mls/hr IV .Q4H PRN; Protocol PRN Reason: See Instructions Last Titration: 01/23/20 04:15 Dose: 0 mg/hr, 0 mls/hr Documented by: Sodium Chloride () 250 mls @ 15 mls/hr IV .[id number] PRN PRN Reason: Saline Flush Sodium Chloride () 250 mls @ 15 mls/hr IV .[id number] PRN PRN Reason: Additional IVPB Infusion Labetalol HCl (Trandate) 20 mg IV X1 PRN PRN Reason: BLOOD PRESSURE Last Admin: 01/22/20 21:07 Dose: 20 mg Documented by: Labetalol HCl (Trandate) 20 mg IV X1 PRN; Protocol PRN Reason: BLOOD PRESSURE Methylprednisolone (Solu-Medrol) 125 mg IV .X1 PRN PRN Reason: Allergic Reaction Stop: 01/24/20 21:03 Nitroglycerin (Nitrostat) 0.4 mg SUBLINGUAL Q5M PRN PRN Reason: CARDIAC/CHEST PAIN Ondansetron HCl (Zofran) 4 mg IV Q8H PRN PRN PRN Reason: NAUSEA/VOMITING Sodium Chloride () 10 - 40 ml IV UD PRN PRN Reason: SALINE FLUSH STROKE Vital Signs/Narrative: Vital Signs Temp Pulse Resp BP Pulse Ox 01/23/20 08:15 97.3 F L 68 26 H 163/96 H 95 01/23/20 07:15 66 21 H 158/99 H 99 01/23/20 07:00 71 Medical Necessity - Tobacco Use Smoking Status: Heavy Smoker (>10/day) Tobacco Use: Cigarettes Assessment/Plan All Active Problems Acute right arterial ischemic stroke, middle cerebral artery (MCA) (Acute) This is a 69 y/o admitted with a complaint of left sided weakness admitted to ICU with diagnosis of acute ischemic stroke. 1. Acute ischemic stroke/CVA: Patient is admitted in ICU after TPA. Initial NIH stroke scale was 4 and currently 3 but patient does not feel much difference. Blood pressure is in permissive hypertensive range. Serial troponin enzymes negative. Fasting profile LDL 132, HDL 29. A1c ordered for tomorrow a.m. [facility] neurology was consulted. CT of brain did not show acute infarct CTA of head and neck shows only mild atherosclerotic disease. 2D echo reported EF 65% with stage I diastolic dysfunction. Bubble contrast study negative for right to left interatrial shunt. Normal left atrium. Mild MR. Hold off aspirin and Plavix for 24 hours after TPA. Plan is to repeat CT head at 2200 hrs. and then MRI brain tomorrow a.m. On high intensity statin 40 mg of atorvastatin. 2. Hypertensive emergency:Blood pressure was markedly elevated at a peak of 221/118 at time of admission. Patient required IV labetalol push and then nicardipine drip to bring the blood pressure below 185/105 4 IV TPA. 3. Unclear NATALI or CKD : Creatinine is 1.32. Baseline is unclear. DVT prophylaxis: SCDs for now. No anticoagulation as he received TPA. CODE STATUS: Full code Total time of the visit including total time spent in counseling or coordination of care, (more than 50% of the total time, spent in obtaining medical information from nurses and other ancillary care providers), discussion with rehab consultant, review of labs and imaging is 30 minutes. Inpatient E&M: 02796 Subs Hosp L3
--- NOTE | 2020-01-23 10:40 | CM.UR ---
RN OBDULIO POLICE LIAISON OBDULIO to room to meet with patient for initial transition planning/care coordination assessment. JAME MAK introduced self and role at [facility]. Pt voices understanding and consents to assessment at this time. Pt resting in bed in no distress at this time. Pt is A/O at this time and answers all questions appropriately. Care providers, pharmacy, and demographics verified at this time. PCP: Has not been to PCP in approx 6 yrs. States he used to see Dr Ingram in [place] and would like to go back to him, if possible. Senior Product Development Engineer made aware and states she will call to see if Dr Ingram is accepting new pt's, as pt has been inactive with them. Specialists: None Preferred Pharmacy: [facility] Retail Insurance: [facility], A[employer] Prescription Benefit: Pt does not think he has prescription benefits. Living Will/HPOA: Pt states he has not completed LW or Healthcare POA paperwork and would like to talk with SW. MELVI Case, made aware. LNOK: 2 daughters and a son Living Arrangements: Lives alone in mobile home w/4 steps to enter, rails on one side. States was independent w/ADL's and IADL's prior to stroke/hospitalization. Transportation: Pt drove self prior to stroke. DME: Pt did not use any DME prior to hospitalization. Unknown at this time if any DME will be needed. HHC/SNF: No history of either. Pt interested in RU @ discharge if needed. MELVI Case, made aware. Pt aware PT/OT evals will need to be completed. CM/SW to follow for discharge planning/needs. Pt voices no further concerns/needs at this time. Advised pt to ask for CM/SW if any further questions/concerns/needs arise. Voices understanding. PLAN: Pt states is interested in RU @ [facility]. Pt remains on bedrest post TPA. PT/OT evals pending. SW for AD. If pt would return home @ discharge, instead of RU or SNF, CM to follow for cost of any new meds, as pt does not think he has prescription benefits. Flavia MOHR RN, CM
--- NOTE | 2020-01-23 12:34 | CASEMGMT ---
Social Work Pt presenting with CVA. SW met with pt in room and completed PHQ9 depression screen with pt score of 07/23 indicating no depression. SW explored with pt the association of CVA and depression and encouraged pt to be thoughtful of this as time passes and speak to doctor is symptoms of depression appear. While pt denied feelings of depression he did discuss feelings of fear when stroke was occurring and frustration now with deficit in arm. SW provided emotional support. Discussed with pt that after he is able to get out of bed and work with therapy discharge plan will be established. SW did explain the Inpatient Rehab unit to pt. Pt also requesting to complete HCPOA and Living will at this time. Documents completed with pt naming his daughter Sandrine Soto as HCPOA. Original given to pt and copy placed on chart. JESUS Melchor
[2020-01-23] MEDS: Labetalol (Prefilled) 20 MG/4 ML IV (13:55)
--- NOTE | 2020-01-23 22:00 | CT_ITS ---
STUDY: CT BRAIN WITHOUT CONTRAST REASON FOR EXAM: Male, 69 years old. S/P TPA RADIATION DOSAGE (If Supplied By Facility): CTDIvol = ( 44.99 ) mGy, DLP = ( 796.11 ) mGycm TECHNIQUE: Transaxial CT imaging of the brain was performed without administration of intravenous contrast material. Individualized dose optimization techniques were used for this CT. COMPARISON: 01/14/2020. FINDINGS: Normal soft tissue structures. Normal calvarium. Calcification of the cavernous carotids. Normal size ventricles and extra-axial spaces for the patient''s age. Mild periventricular white matter ischemic changes.. Normal basal ganglia and thalami. Normal brainstem. Normal cerebellum. There is no intracranial hemorrhage. There are no findings of an acute ischemic infarction. Small mucous retention cyst in left maxillary sinus. Moderate focal thickening of the ethmoid air cells bilaterally and mild left frontal sinus disease No significant changes since prior exam CT/Brain/Head without Contrast IMPRESSION: Mild periventricular white matter ischemic changes. No evidence for acute bleed Electronically Signed: Jas Santa MD at 22:16 EDT , Service support ,
[2020-01-24] VITALS (42 sets, daily range): BP systolic 122–199; BP diastolic 68–131; PULSE 58–78; RESP 16–25; TEMP 36.3–36.6; O2SAT 93–98; BMI 26.1
[2020-01-24] MEDS: Labetalol (Prefilled) 20 MG/4 ML IV (01:41)
[2020-01-24] MEDS: 0.9% Saline Lock 10 ML Syringe IV ×3 (01:41→05:42)
[2020-01-24 03:27] LABS: Absolute Lymphocyte Count 1.79 X10^3/uL (0.83-4.51); Absolute Neutrophil Count 5.5 X10^3/uL (2.0-7.7); Basophil# 0.05 X10^3/uL; Basophil% 0.6 % (0-1); Eosinophil# 0.19 X10^3/uL; Eosinophils% 2.3 % (0-5); Hematocrit 46.8 % (40-54); Hemoglobin 15.6 g/dL (13.0-16.5); Lymphocyte # 1.79 X10^3/ul (4.0); Lymphocyte % 21.8 % (19-41); Mean Corp Hgb Conc 33.3 g/dL (32-36); Mean Corpuscular Hgb 29.7 pg (27.0-32.0); Mean Platelet Vol. 10.2 fl (6.2-12.0); Monocyte# 0.68 X10^3/uL; Monocyte% 8.3 % (0-10); NRBC Flagged by Analyzer 0 % (0-5); Neutrophil # 5.48 X10^3/uL (2.7-7.7); Neutrophil % 66.6 % (47-70); Platelet Count 167 K/mm3 (150-450); RBC Distribution Width CV 12.9 % (11.6-14.6); RBC Distribution Width SD 41.8 fl (35.1-43.9); Red Blood Count 5.26 M/mm3 (4.6-6.2); White Blood Count 8.2 K/mm3 (4.4-11.0)
[2020-01-24 03:40] LABS: Anion Gap 4 (5-15); BUN 15 mg/dL (7-18); BUN/Creat Ratio 13.5 RATIO (10-20); Calcium,Total 8.1 mg/dL (8.5-10.1); Chloride 110 mmol/L (98-107); Creatinine, Serum 1.11 mg/dL (0.70-1.30); EST Glomerular Filtration Rate 70 mL/min (>60); Est Glom Filt Rate - Afr Amer 85 mL/min (>60); Estimated Creatinine Clearance 63.69 ml/min; Glucose 100 mg/dL (74-106); Potassium 3.9 mmol/L (3.5-5.1); Sodium Level 139 mmol/L (136-145)
[2020-01-24] MEDS: hydrALAZINE 20 MG/ML Vial 10 MG IV (04:51)
[2020-01-24] MEDS: Ondansetron 4 MG/2 ML Vial IV (05:42)
--- NOTE | 2020-01-24 06:24 | PCM.PN.INT ---
Subjective: The patient was seen and examined at the bedside this morning. Events from the last 24 hours have been reviewed. The patient is currently afebrile, hemodynamically stable and maintaining appropriate oxygen saturations on room air. The patient continues to report deficits in his left upper extremity. Blood pressure has been elevated overnight. Objective: The patient's most recent lab work, culture data and imaging studies have all been personally reviewed. Surface echocardiogram revealed stage I diastolic dysfunction. Bubble study was negative for shunt. General: Alert, Cooperative, No apparent distress HEENT: Atraumatic, Normocephalic Oral: No Gingival or Mucosal Lesions/ Ulcerations Neck: Supple, No Nodes, Trachea Midline Lungs: Normal air movement Cardiovascular: Regular rate, Regular Rhythm Abdomen: Bowel Sounds Present, Soft, Non Tender Extremities: No clubbing, No cyanosis, No edema Skin: No breakdown Musculoskeletal: No Tenderness to Palpation of Joints or Extremities Lymphatic: No Cervical, Supraclavicular, or Inguinal Adenopathy Neurological: - - Little interval change with continued left-sided weakness. Psych/Mental Status: Normal Affect, Appropriate Vital Signs Temp Pulse Resp BP Pulse Ox 97.9 F 72 22 H 176/87 H 98 01/24/20 00:00 01/24/20 05:45 01/24/20 05:00 01/24/20 05:45 01/24/20 05:00 Oxygen Delivery Method Room Air Weight: 177 lb 7.554 oz Body Mass Index (BMI) 26.1 Finger Stick Blood Glucose 110 Intake and Output for Last 24 Hours 01/22/20 01/23/20 01/24/20 23:59 23:59 23:59 Intake Total 80.17 / 191.84 3297.92 / 3297.92 840 / 840 Output Total 1900 / 1900 750 / 750 Balance 80.17 / 191.84 1397.92 / 1397.92 90 / 90 Labs (Last 48 Hours) 01/22/20 01/22/20 01/22/20 20:51 20:51 20:51 WBC 8.3 RBC 5.02 Hgb 15.0 Hct 44.2 MCV 88.0 MCH 29.9 MCHC 33.9 RDW Std Deviation 41.6 RDW Coeff of Deanne 12.8 Plt Count 188 MPV 10.6 Immature Gran % (Auto) 0.500 Neut % (Auto) 74.5 H Lymph % (Auto) 15.0 L [place] % (Auto) 7.9 Eos % (Auto) 1.4 Baso % (Auto) 0.7 Absolute Neuts (auto) 6.2 Absolute Lymphs (auto) 1.24 Nucleated RBC % 0 PT 13.7 INR 1.1 APTT 28.4 Sodium 142 Potassium 3.6 Chloride 109 H Carbon Dioxide 28.0 Anion Gap 5 BUN 18 Creatinine 1.32 H Estim Creat Clear Calc 53.56 Est GFR (MDRD) Af Amer 69 Est GFR (MDRD) Non-Af 57 L BUN/Creatinine Ratio 13.6 Glucose 123 H Hemoglobin A1c Lactic Acid Calcium 8.3 L Total Bilirubin Direct Bilirubin AST ALT Alkaline Phosphatase Troponin I < 0.015 Total Protein Albumin Globulin Triglycerides Cholesterol LDL Cholesterol VLDL Cholesterol HDL Cholesterol COVID-19 (NATA) 01/22/20 01/22/20 01/22/20 20:51 21:35 21:55 WBC RBC Hgb Hct MCV MCH MCHC RDW Std Deviation RDW Coeff of Deanne Plt Count MPV Immature Gran % (Auto) Neut % (Auto) Lymph % (Auto) [place] % (Auto) Eos % (Auto) Baso % (Auto) Absolute Neuts (auto) Absolute Lymphs (auto) Nucleated RBC % PT INR APTT Sodium Potassium Chloride Carbon Dioxide Anion Gap BUN Creatinine Estim Creat Clear Calc Est GFR (MDRD) Af Amer Est GFR (MDRD) Non-Af BUN/Creatinine Ratio Glucose Hemoglobin A1c Lactic Acid 1.2 Calcium Total Bilirubin 0.70 Direct Bilirubin 0.22 AST 16 ALT 20 Alkaline Phosphatase 63 Troponin I Total Protein 6.1 L Albumin 3.0 L Globulin 3.1 Triglycerides Cholesterol LDL Cholesterol VLDL Cholesterol HDL Cholesterol COVID-19 (NATA) Negative 01/23/20 01/23/20 01/23/20 00:20 05:00 05:00 WBC 8.5 RBC 5.46 Hgb 16.2 Hct 48.3 MCV 88.5 MCH 29.7 MCHC 33.5 RDW Std Deviation 41.9 RDW Coeff of Deanne 12.9 Plt Count 143 L MPV 10.6 Immature Gran % (Auto) 0.500 Neut % (Auto) 69.0 Lymph % (Auto) 20.9 [place] % (Auto) 7.4 Eos % (Auto) 1.6 Baso % (Auto) 0.6 Absolute Neuts (auto) 5.9 Absolute Lymphs (auto) 1.78 Nucleated RBC % 0 PT INR APTT Sodium Potassium Chloride Carbon Dioxide Anion Gap BUN Creatinine Estim Creat Clear Calc Est GFR (MDRD) Af Amer Est GFR (MDRD) Non-Af BUN/Creatinine Ratio Glucose Hemoglobin A1c Lactic Acid Calcium Total Bilirubin Direct Bilirubin AST ALT Alkaline Phosphatase Troponin I < 0.015 Total Protein Albumin Globulin Triglycerides 143 Cholesterol 190 LDL Cholesterol 132 H VLDL Cholesterol 29 HDL Cholesterol 29 L COVID-19 (NATA) 01/24/20 01/24/20 01/24/20 03:20 03:20 03:20 WBC 8.2 RBC 5.26 Hgb 15.6 Hct 46.8 MCV 89.0 MCH 29.7 MCHC 33.3 RDW Std Deviation 41.8 RDW Coeff of Deanne 12.9 Plt Count 167 MPV 10.2 Immature Gran % (Auto) 0.400 Neut % (Auto) 66.6 Lymph % (Auto) 21.8 [place] % (Auto) 8.3 Eos % (Auto) 2.3 Baso % (Auto) 0.6 Absolute Neuts (auto) 5.5 Absolute Lymphs (auto) 1.79 Nucleated RBC % 0 PT INR APTT Sodium 139 Potassium 3.9 Chloride 110 H Carbon Dioxide 25.0 Anion Gap 4 L BUN 15 Creatinine 1.11 Estim Creat Clear Calc 63.69 Est GFR (MDRD) Af Amer 85 Est GFR (MDRD) Non-Af 70 BUN/Creatinine Ratio 13.5 Glucose 100 Hemoglobin A1c Pending Lactic Acid Calcium 8.1 L Total Bilirubin Direct Bilirubin AST ALT Alkaline Phosphatase Troponin I Total Protein Albumin Globulin Triglycerides Cholesterol LDL Cholesterol VLDL Cholesterol HDL Cholesterol COVID-19 (NATA) Microbiology 01/22/20 21:35 Mucosa - Nasopharyngeal Respiratory Panel (PCR) - Final Clinical Impression(s) from Imaging Studies Brain CT 01/22/20 20:24 IMPRESSION: Mild periventricular white matter ischemic changes. No evidence for acute bleed. If concern for acute infarct MRI recommended N.B. : The above information has been verbally conveyed by Jas Santa MD to Jac Beaulieu MD, on 01/22/2020 20:55:46 (ET). Electronically Signed: Jas Santa MD at 20:54 EDT , Service support , Head/Neck CTA 01/22/20 20:30 IMPRESSION: Mild atherosclerotic disease. No evidence for hemodynamically significant stenosis or occlusion N.B. : The above information has been verbally conveyed by Jas Santa MD to Jac Beaulieu MD, on 01/22/2020 21:10:24 (ET). Electronically Signed: Jas Santa MD at 21:10 EDT , Service support , Chest X-Ray 01/22/20 22:10 IMPRESSION: No acute cardiopulmonary pathology Electronically Signed: Jas Santa MD at 22:20 EDT , Service support , Brain CT 01/23/20 22:00 IMPRESSION: Mild periventricular white matter ischemic changes. No evidence for acute bleed Electronically Signed: Jas Santa MD at 22:16 EDT , Service support , Medical Necessity - Tobacco Use Smoking Status: Heavy Smoker (>10/day) Tobacco Use: Cigarettes Assessment/Plan All Active Problems Acute right arterial ischemic stroke, middle cerebral artery (MCA) (Acute) RECOMMENDATIONS: 1. Start p.o. antihypertensive regimen. 2. Okay to start aspirin daily. Continue statin as ordered. 3. PT/OT evaluations. 4. The patient is medically stable for transfer out of the intensive care unit. 5. Will sign off from a critical care perspective. IMPRESSIONS: 1. Acute ischemic CVA status post TPA MRI revealed small subacute lacunar ischemic infarction. The patient continues to have left-sided deficits. Recommend starting p.o. antihypertensive regimen and weaning from nicardipine. Echocardiogram was unremarkable. Start aspirin daily and continue statin. PT/OT evaluations are pending. 2. Hypertensive emergency The patient initially had to be maintained on a Cardene drip in order to control his hemodynamics to allow for TPA administration. The nicardipine had to be restarted due to elevated blood pressures overnight. The patient will be started on a p.o. antihypertensive regimen, with plans to wean completely from nicardipine. This note was generated with [employer] dictation software. It may contain incorrect words, spelling, and punctuation that were not noted in checking the note before signing. Inpatient E&M: 47832 Subs Hosp L2
--- NOTE | 2020-01-24 07:43 | PCM.PN.HOSP ---
Patient Problems: Active and Suspected Problems Acute right arterial ischemic stroke, middle cerebral artery (MCA) (Acute) Reason for Visit: Follow-up for acute ischemic stroke Objective: No acute symptoms overnight. Denies headache or change in vision or speech. 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 Blood pressure in permissive hypertension range. Physical exam General: Alert, Oriented x3, Cooperative HEENT: Atraumatic, PERRLA, EOMI, Normocephalic Oral: No Gingival or Mucosal Lesions/ Ulcerations Neck: Supple, No JVD, Negative Carotid Bruits Lungs: Air entry equal in bilateral lung bases. No crepitation/rhonchi Cardiovascular: Regular rate, Regular Rhythm, Normal S1, Normal S2, No murmurs Abdomen: Bowel Sounds Present, Soft, Non Tender, Non-Distended : No renal angle tenderness. No suprapubic tenderness. Good urine output Extremities: No edema, Capillary Refill Less than 3 Seconds Skin: No rashes, No breakdown Musculoskeletal: No Tenderness to Palpation of Joints or Extremities Neurological: Cranial nerves II-XII grossly intact, Deep Tendon Reflexes 2+/4 and Symmetrical, left upper extremity weakness, NIHSS 3 Psych/Mental Status: Normal Affect, Appropriate. Vitals/I&O's: Vital Signs Temp Pulse Resp BP Pulse Ox 97.9 F 71 22 H 163/97 H 93 01/24/20 00:00 01/24/20 07:00 01/24/20 07:00 01/24/20 07:00 01/24/20 07:00 Oxygen Delivery Method Room Air Weight: 177 lb 7.554 oz Body Mass Index (BMI) 26.1 Finger Stick Blood Glucose 110 Intake and Output for Last 24 Hours 01/22/20 01/23/20 01/24/20 23:59 23:59 23:59 Intake Total 80.17 / 191.84 3297.92 / 3297.92 851.67 / 851.67 Output Total 1900 / 1900 750 / 750 Balance 80.17 / 191.84 1397.92 / 1397.92 101.67 / 101.67 Microbiology Past 72 Hours 01/22/20 21:35 Mucosa - Nasopharyngeal Respiratory Panel (PCR) - Final Laboratory Results 01/24/20 03:20: WBC 8.2, RBC 5.26, Hgb 15.6, Hct 46.8, MCV 89.0, MCH 29.7, MCHC 33.3, RDW Std Deviation 41.8, RDW Coeff of Edanne 12.9, Plt Count 167, MPV 10.2, Immature Gran % (Auto) 0.400, Neut % (Auto) 66.6, Lymph % (Auto) 21.8, [place] % (Auto) 8.3, Eos % (Auto) 2.3, Baso % (Auto) 0.6, Absolute Neuts (auto) 5.5, Absolute Lymphs (auto) 1.79, Nucleated RBC % 0 01/24/20 03:20: Sodium 139, Potassium 3.9, Chloride 110 H, Carbon Dioxide 25.0, Anion Gap 4 L, BUN 15, Creatinine 1.11, Estim Creat Clear Calc 63.69, Est GFR (MDRD) Af Amer 85, Est GFR (MDRD) Non-Af 70, BUN/Creatinine Ratio 13.5, Glucose 100, Calcium 8.1 L 01/24/20 03:20: Hemoglobin A1c Pending Current Medications Acetaminophen (Tylenol) 650 mg PO .X1 PRN PRN Reason: Temp > 99.6 F Atorvastatin Calcium (Lipitor) 80 mg PO QHS WILMER Last Admin: 01/23/20 21:09 Dose: 80 mg Documented by: Dextrose (D50w Syringe) 0 gm IV X1 PRN; Protocol PRN Reason: Hypoglycemia Diphenhydramine HCl (Benadryl) 50 mg IV .X1 PRN PRN Reason: Allergic Reaction Stop: 01/24/20 21:03 Epinephrine HCl () 0.3 mg IM .X1 PRN PRN Reason: Allergic Reaction Stop: 01/24/20 21:03 Glucagon () 1 mg IM .X1 PRN PRN Reason: Hypoglycemia Hydralazine HCl (Apresoline Iv) 5 mg IV Q30M PRN PRN Reason: to maintain BP goals Famotidine 20 mg/ Sodium (Chloride) 10 mls @ 300 mls/hr IV .X1 PRN PRN Reason: Allergic Reaction Stop: 01/24/20 21:03 Nicardipine/Dextrose (Cardene-Dex 20 Mg/200 Ml Soln) 20 mg in 200 mls @ 50 mls/hr IV .Q4H PRN; Protocol PRN Reason: See Instructions Last Titration: 01/24/20 07:00 Dose: 2.5 mg/hr, 25 mls/hr Documented by: Sodium Chloride () 250 mls @ 15 mls/hr IV .[id number] PRN PRN Reason: Saline Flush Sodium Chloride () 250 mls @ 15 mls/hr IV .[id number] PRN PRN Reason: Additional IVPB Infusion Labetalol HCl (Trandate) 20 mg IV X1 PRN PRN Reason: BLOOD PRESSURE Last Admin: 01/24/20 01:41 Dose: 20 mg Documented by: Labetalol HCl (Trandate) 20 mg IV X1 PRN; Protocol PRN Reason: BLOOD PRESSURE Methylprednisolone (Solu-Medrol) 125 mg IV .X1 PRN PRN Reason: Allergic Reaction Stop: 01/24/20 21:03 Nitroglycerin (Nitrostat) 0.4 mg SUBLINGUAL Q5M PRN PRN Reason: CARDIAC/CHEST PAIN Ondansetron HCl (Zofran) 4 mg IV Q8H PRN PRN PRN Reason: NAUSEA/VOMITING Last Admin: 01/24/20 05:42 Dose: 4 mg Documented by: Sodium Chloride () 10 - 40 ml IV UD PRN PRN Reason: SALINE FLUSH Last Admin: 01/24/20 05:42 Dose: 20 ml Documented by: STROKE Vital Signs/Narrative: Vital Signs Pulse Resp BP BP Pulse Ox 01/24/20 07:00 71 22 H 163/97 H 93 01/24/20 06:45 69 176/99 H 01/24/20 06:30 68 23 H 182/99 H 98 01/24/20 06:00 69 22 H 181/87 H 97 01/24/20 05:45 72 176/87 H 01/24/20 05:30 77 187/131 H 01/24/20 05:00 71 22 H 179/101 H 98 01/24/20 04:51 65 01/24/20 04:00 60 17 185/93 H 97 Medical Necessity - Tobacco Use Smoking Status: Heavy Smoker (>10/day) Tobacco Use: Cigarettes Assessment/Plan All Active Problems Acute right arterial ischemic stroke, middle cerebral artery (MCA) (Acute) This is a 69 y/o admitted with a complaint of left sided weakness admitted to ICU with diagnosis of acute ischemic stroke. 1. Acute ischemic stroke/CVA: Patient is admitted in ICU after TPA. Initial NIH stroke scale was 4 and currently 3 but patient does not feel much difference. Blood pressure is in permissive hypertensive range. Serial troponin enzymes negative. [facility] neurology was consulted. CT of brain did not show acute infarct CTA of head and neck shows only mild atherosclerotic disease. 2D echo reported EF 65% with stage I diastolic dysfunction. Bubble contrast study negative for right to left interatrial shunt. Normal left atrium. Mild MR. Hold off aspirin and Plavix for 24 hours after TPA. Plan is to repeat CT head at 2200 hrs. and then MRI brain tomorrow a.m. On high intensity statin 40 mg of atorvastatin. 01/23: CT head did not show evidence for acute bleed. Fasting profile LDL 132, HDL 29. MRI brain reported subacute lacunar ischemic infarct. [facility] neurology consult done. Recommended aspirin 325 mg now and then 81 mg from tomorrow a.m. High intensity statin. 2. Hypertensive emergency:Blood pressure was markedly elevated at a peak of 221/118 at time of admission. Patient required IV labetalol push and then nicardipine drip to bring the blood pressure below 185/105 for IV TPA. 01/23:Control blood pressure with goal of SBP 130 mmHg. Losartan 25 mg started. 3. Unclear NATALI or CKD : Creatinine is 1.32. Baseline is unclear. DVT prophylaxis: SCDs for now. No anticoagulation as he received TPA. CODE STATUS: Full code Transfer to the PCU floor. Total time of the visit including total time spent in counseling or coordination of care, (more than 50% of the total time, spent in obtaining medical information from nurses and other ancillary care providers), discussion with datastage consultant, [facility] neurology, review of labs and imaging is 30 minutes. Clinical Impression(s) from Imaging Studies Brain CT 01/22/20 20:24 IMPRESSION: Mild periventricular white matter ischemic changes. No evidence for acute bleed. If concern for acute infarct MRI recommended N.B. : The above information has been verbally conveyed by Jas Santa MD to Jac Beaulieu MD, on 01/22/2020 20:55:46 (ET). Electronically Signed: Jas Santa MD at 20:54 EDT , Service support , Head/Neck CTA 01/22/20 20:30 IMPRESSION: Mild atherosclerotic disease. No evidence for hemodynamically significant stenosis or occlusion N.B. : The above information has been verbally conveyed by Jas Santa MD to Jac Beaulieu MD, on 01/22/2020 21:10:24 (ET). Electronically Signed: Jas Santa MD at 21:10 EDT , Service support , Chest X-Ray 01/22/20 22:10 IMPRESSION: No acute cardiopulmonary pathology Electronically Signed: Jas Santa MD at 22:20 EDT , Service support , Brain CT 01/23/20 22:00 IMPRESSION: Mild periventricular white matter ischemic changes. No evidence for acute bleed Electronically Signed: Jas Santa MD at 22:16 EDT , Service support , Brain MRI 01/24/20 08:00 ADDENDUM: 01/24/20 1018 Inpatient E&M: 38191 Subs Hosp L3
--- NOTE | 2020-01-24 08:00 | MRI_ITS ---
ACR Level 3 findings have been noted. An addendum which confirms receipt of the report will follow. STUDY: MRI BRAIN WITHOUT CONTRAST REASON FOR EXAM: Male, 69 years old. CVA. Left-sided weakness. Posterior TPA on 01/22/2020. TECHNIQUE: T1 weighted sagittal and DWI sequence were performed limited for acute CVA evaluation. No T2 weighted sequence or FLAIR sequence was performed. COMPARISON: CT head without contrast 01/23/2020 and 01/22/2020. FINDINGS: Small restricted diffusion in the right posterior internal capsule is most in keeping with subacute lacunar ischemic infarct. This is subacute since this was not visible on 01/22/2020 but became visible as a subtle hypodense ischemic infarct on 01/23/2020 (series 2, image 19). Normal ventricles and cisterns. The remaining brain parenchyma did not show any areas of restricted diffusion. T1 weighted sagittal views of the brain are normal. OPINION: Small round subacute lacunar ischemic infarct in the right posterior internal capsule. COMMENT: This is subacute lacunar ischemic infarct since this is now day 3 and was visible as a subtle small hypodense ischemic infarct on prior CT head scan of 01/23/2020, series 2, image 19. This was not present on 01/22/2020. Electronically Signed: Dg Chaves MD at 9:59 EDT , Service support , MRI/Brain without Contrast
[2020-01-24 08:03] LABS: Hemoglobin A1c 5.4 % (3.8-5.6)
--- NOTE | 2020-01-24 09:48 | CASEMGMT ---
RN CM Note: participated in ICU interdisciplinary rounds. MRI this am positive for CVA, MCA. Speech slurred, PT/OT evaluations anticipated today. Will follow for recommendations re: Home with [facility] vs [facility] Inpt Rehab. Felice ZAIDIN RN ACM
--- NOTE | 2020-01-24 10:53 | TELEMED_ITS ---
[facility] Telemed has confirmed receipt of a request for visit. This document confirms receipt of the order initiating the consult. To find the results of the consultation, please view the patient's reports for the scanned Telemed Consult.
[2020-01-24] MEDS: Aspirin E.C. 325 MG Tablet PO (12:40)
[2020-01-24] MEDS: Losartan Potassium 25 MG Tablet PO (12:40)
--- NOTE | 2020-01-24 14:53 | CASEMGMT ---
Addendum entered by Britany Guthrie 01/24/20 16:24: SW updated pt on acceptance to Addendum entered by Britany Guthrie 01/24/20 16:00: SW received all from Mima with , is able to accept. Original Note: Social Work Note SW received call from Mima with stating PT/OT worked with pt and are stating pt is appropriate for RU. Mima will place pt on RU list. Plan: Referral to Britany Guthrie EQUIPMENT OPERATOR/LABORER, INDUSTRIAL GARAGE SERVICER
[2020-01-24] MEDS: Atorvastatin Calcium 80 MG Tablet PO (22:11)
[2020-01-25] VITALS (8 sets, daily range): BP systolic 144–192; BP diastolic 86–110; PULSE 62–83; RESP 16–22; TEMP 36.1–36.7; O2SAT 96–98; BMI 26.1
--- NOTE | 2020-01-25 01:32 | NURSING ---
called the hospitalist to notify her of the pt elevated bp, dr. lee wrote orders for hydralazine
[2020-01-25] MEDS: hydrALAZINE 20 MG/ML Vial 10 MG IV (01:51)
[2020-01-25 06:04] LABS: Absolute Lymphocyte Count 1.65 X10^3/uL (0.83-4.51); Absolute Neutrophil Count 4.9 X10^3/uL (2.0-7.7); Basophil# 0.04 X10^3/uL; Basophil% 0.5 % (0-1); Eosinophil# 0.19 X10^3/uL; Eosinophils% 2.5 % (0-5); Hematocrit 50.1 % (40-54); Hemoglobin 16.9 g/dL (13.0-16.5); Lymphocyte # 1.65 X10^3/ul (4.0); Lymphocyte % 22.1 % (19-41); Mean Corp Hgb Conc 33.7 g/dL (32-36); Mean Corpuscular Hgb 29.9 pg (27.0-32.0); Mean Corpuscular Volume 88.7 fL (80-94); Mean Platelet Vol. 10.4 fl (6.2-12.0); Monocyte# 0.65 X10^3/uL; Monocyte% 8.7 % (0-10); NRBC Flagged by Analyzer 0 % (0-5); Neutrophil # 4.91 X10^3/uL (2.7-7.7); Neutrophil % 65.9 % (47-70); Platelet Count 177 K/mm3 (150-450); RBC Distribution Width CV 13.2 % (11.6-14.6); RBC Distribution Width SD 42.8 fl (35.1-43.9); Red Blood Count 5.65 M/mm3 (4.6-6.2); White Blood Count 7.5 K/mm3 (4.4-11.0)
[2020-01-25 06:18] LABS: Anion Gap 2 (5-15); BUN 16 mg/dL (7-18); BUN/Creat Ratio 14.8 RATIO (10-20); Calcium,Total 8.7 mg/dL (8.5-10.1); Chloride 113 mmol/L (98-107); Creatinine, Serum 1.08 mg/dL (0.70-1.30); EST Glomerular Filtration Rate 72 mL/min (>60); Est Glom Filt Rate - Afr Amer 87 mL/min (>60); Estimated Creatinine Clearance 65.46 ml/min; Glucose 98 mg/dL (74-106); Potassium 3.9 mmol/L (3.5-5.1); Sodium Level 142 mmol/L (136-145)
[2020-01-25] MEDS: Aspirin E.C. 81 MG Tablet PO (08:03)
[2020-01-25] MEDS: Losartan Potassium 25 MG Tablet PO (08:04)
--- NOTE | 2020-01-25 10:15 | DCINST_ITS ---
- Discharge Diagnoses Current Active Problems: Current Active and Chronic Problems Acute right arterial ischemic stroke, middle cerebral artery (MCA) (Acute) You will use the following diet at home:: Cardiac Your food should be the consistency of: Regular Discharge Activity: May Not Drive Call your doctor if you observe: Fever of 101 or Higher, Coldness, Increased Pain, Numbness or Tingling, Change in Color, Inability to urinate, Using more than one pad per hour, Dizziness, Fainting spells, Swelling in the ankles, Chest pain, Prolonged hiccoughing, Increased palpitations (irregular heartbeat), Calf discomfort, Uncontrolled pain Allergies/Adverse Reactions: Allergies No Known Allergies Allergy (Verified 01/22/20 20:47) Medications to take at Discharge Aspirin E.C. [Ecotrin] 81 mg PO DAILY@0800 #0 tablet 01/25/20 Atorvastatin Calcium [Lipitor] 80 mg PO QHS tablet 01/25/20 Losartan Potassium [Cozaar] 50 mg PO DAILY tablet 01/25/20 Primary Care Physician: Care Physician,No Primary [Primary Care Provider] - Please follow up with your Primary Care Physician in: in 2 weeks Test Results: Test results from this visit will be discussed in further detail at your follow- up appointment, if applicable. Please Follow Up With: Mati Sanchez MD When: in 2 weeks
--- NOTE | 2020-01-25 10:19 | DS.PCM_ITS ---
Discharge Date and Diagnosis Date of Admission: 01/22/20 Date of Discharge: 01/25/20 - Primary Discharge Diagnosis Acute Problems: Active Problems Acute right arterial ischemic stroke/infarct, middle cerebral artery (MCA) (Acute) Hospital Course and Treatment Summary of Care Provided: [] This is a 69 y/o admitted with a complaint of left sided weakness admitted to ICU with diagnosis of acute ischemic stroke. 1. Acute ischemic stroke/CVA: Patient is admitted in ICU after TPA. Initial NIH stroke scale was 4 and currently 3 but patient does not feel much difference. Blood pressure is in permissive hypertensive range. Serial troponin enzymes negative. [facility] neurology was consulted. CT of brain did not show acute infarct CTA of head and neck shows only mild atherosclerotic disease. 2D echo reported EF 65% with stage I diastolic dysfunction. Bubble contrast study negative for right to left interatrial shunt. Normal left atrium. Mild MR. aspirin and other anticoagulant was held for [address] head did not show evidence for acute bleed. Fasting profile LDL 132, HDL 29. MRI brain reported subacute lacunar ischemic infarct. [facility] neurology consult done. Recommended aspirin 325 mg now and then 81 mg from tomorrow a.m. High intensity statin. 2. Hypertensive emergency:Blood pressure was markedly elevated at a peak of 221/118 at time of admission. Patient required IV labetalol push and then nicardipine drip to bring the blood pressure below 185/105 for IV TPA. 01/23:Control blood pressure with goal of SBP 130 mmHg. Losartan gradually incre ased to 50 mg daily. 3. Unclear NATALI or CKD : Creatinine is 1.32. Baseline is unclear. DVT prophylaxis: SCDs for now. No anticoagulation as he received TPA. CODE STATUS: Full code Patient is being discharged to acute rehab. Discharge medication reconciliation done. Discharge follow-up instructions completed. Discharge process discussed with the patient and all questions were answered to patient's satisfaction. Total time spent, exact 35 minutes on discharge meds reconciliation, examination, coordination of care with nurses and ancillary staff, review of imaging and blood test and discussion with the patient on follow-up instructions Clinical Impression(s) from Imaging Studies Brain CT 01/22/20 20:24 IMPRESSION: Mild periventricular white matter ischemic changes. No evidence for acute bleed. If concern for acute infarct MRI recommended N.B. : The above information has been verbally conveyed by Jas Santa MD to Jac Beaulieu MD, on 01/22/2020 20:55:46 (ET). Electronically Signed: Jas Santa MD at 20:54 EDT , Service support , Head/Neck CTA 01/22/20 20:30 IMPRESSION: Mild atherosclerotic disease. No evidence for hemodynamically significant stenosis or occlusion N.B. : The above information has been verbally conveyed by Jas Santa MD to Jac Beaulieu MD, on 01/22/2020 21:10:24 (ET). Electronically Signed: Jas Santa MD at 21:10 EDT , Service support , Chest X-Ray 01/22/20 22:10 IMPRESSION: No acute cardiopulmonary pathology Electronically Signed: Jas Santa MD at 22:20 EDT , Service support , Brain CT 01/23/20 22:00 IMPRESSION: Mild periventricular white matter ischemic changes. No evidence for acute bleed Electronically Signed: Jas Santa MD at 22:16 EDT , Service support , Objective: No acute symptoms overnight. 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 Pressure is controlled. Left upper extremity weakness mild improvement. Physical exam General: Alert, Oriented x3, Cooperative HEENT: Atraumatic, PERRLA, EOMI, Normocephalic Oral: No Gingival or Mucosal Lesions/ Ulcerations Neck: Supple, No JVD, Negative Carotid Bruits Lungs: Air entry equal in bilateral lung bases. No crepitation/rhonchi Cardiovascular: Regular rate, Regular Rhythm, Normal S1, Normal S2, No murmurs Abdomen: Bowel Sounds Present, Soft, Non Tender, Non-Distended : No renal angle tenderness. No suprapubic tenderness. Good urine output Extremities: No edema, Capillary Refill Less than 3 Seconds Skin: No rashes, No breakdown Musculoskeletal: No Tenderness to Palpation of Joints or Extremities Neurological: Cranial nerves II-XII grossly intact, Deep Tendon Reflexes 2+/4 and Symmetrical, left upper extremity weakness, NIHSS 2 Psych/Mental Status: Normal Affect, Appropriate. - Physical Exam Vitals/I&O's: Vital Signs Temp Pulse Resp BP Pulse Ox 97.0 F L 75 17 144/86 H 97 01/25/20 09:04 01/25/20 09:04 01/25/20 09:04 01/25/20 09:04 01/25/20 09:04 Oxygen Flow Rate (L/min) 2 Oxygen Delivery Method Room Air Weight: 174 lb 13.225 oz Body Mass Index (BMI) 26.1 Finger Stick Blood Glucose 110 Intake and Output for Last 24 Hours 01/23/20 01/24/20 01/25/20 23:59 23:59 23:59 Intake Total 3297.92 / 3297.92 1614.17 / 1814.17 200 / 200 Output Total 1900 / 1900 1750 / 2300 1400 / 1400 Balance 1397.92 / 1397.92 -135.83 / -485.83 -1200 / -1200 Microbiology Past 72 Hours 01/22/20 21:50 Blood Culture (Wb) - Right Wrist Blood Culture - Preliminary No growth in 48 hours. 01/22/20 21:55 Blood Culture (Wb) - Anticubital Left Blood Culture - Preliminary No growth in 48 hours. 01/22/20 21:35 Mucosa - Nasopharyngeal Respiratory Panel (PCR) - Final Laboratory Results 01/25/20 05:45: WBC 7.5, RBC 5.65, Hgb 16.9 H, Hct 50.1, MCV 88.7, MCH 29.9, MCHC 33.7, RDW Std Deviation 42.8, RDW Coeff of Deanne 13.2, Plt Count 177, MPV 10.4, Immature Gran % (Auto) 0.300, Neut % (Auto) 65.9, Lymph % (Auto) 22.1, [place] % (Auto) 8.7, Eos % (Auto) 2.5, Baso % (Auto) 0.5, Absolute Neuts (auto) 4.9, Absolute Lymphs (auto) 1.65, Nucleated RBC % 0 01/25/20 05:45: Sodium 142, Potassium 3.9, Chloride 113 H, Carbon Dioxide 27.0, Anion Gap 2 L, BUN 16, Creatinine 1.08, Estim Creat Clear Calc 65.46, Est GFR (MDRD) Af Amer 87, Est GFR (MDRD) Non-Af 72, BUN/Creatinine Ratio 14.8, Glucose 98, Calcium 8.7 Current Medications Acetaminophen (Tylenol) 650 mg PO .X1 PRN PRN Reason: Temp > 99.6 F Aspirin (Ecotrin) 81 mg PO DAILY@0800 [facility] Last Admin: 01/25/20 08:03 Dose: 81 mg Documented by: Atorvastatin Calcium (Lipitor) 80 mg PO QHS [facility] Last Admin: 01/24/20 22:11 Dose: 80 mg Documented by: Dextrose (D50w Syringe) 0 gm IV X1 PRN; Protocol PRN Reason: Hypoglycemia Glucagon () 1 mg IM .X1 PRN PRN Reason: Hypoglycemia Hydralazine HCl (Apresoline Iv) 10 mg IV Q6H PRN PRN PRN Reason: BLOOD PRESSURE ELEVATION Last Admin: 01/25/20 01:51 Dose: 10 mg Documented by: Nicardipine/Dextrose (Cardene-Dex 20 Mg/200 Ml Soln) 20 mg in 200 mls @ 50 mls/hr IV .Q4H PRN; Protocol PRN Reason: See Instructions Last Titration: 01/24/20 11:00 Dose: Infused Documented by: Sodium Chloride () 250 mls @ 15 mls/hr IV .[id number] PRN PRN Reason: Saline Flush Sodium Chloride () 250 mls @ 15 mls/hr IV .[id number] PRN PRN Reason: Additional IVPB Infusion Labetalol HCl (Trandate) 20 mg IV X1 PRN PRN Reason: BLOOD PRESSURE Last Admin: 01/24/20 01:41 Dose: 20 mg Documented by: Labetalol HCl (Trandate) 20 mg IV X1 PRN; Protocol PRN Reason: BLOOD PRESSURE Losartan Potassium (Cozaar) 25 mg PO DAILY [facility] Last Admin: 01/25/20 08:04 Dose: 25 mg Documented by: Nitroglycerin (Nitrostat) 0.4 mg SUBLINGUAL Q5M PRN PRN Reason: CARDIAC/CHEST PAIN Ondansetron HCl (Zofran) 4 mg IV Q8H PRN PRN PRN Reason: NAUSEA/VOMITING Last Admin: 01/24/20 05:42 Dose: 4 mg Documented by: Sodium Chloride () 10 - 40 ml IV UD PRN PRN Reason: SALINE FLUSH Last Admin: 01/24/20 05:42 Dose: 20 ml Documented by: Discharge Activity: May Not Drive Call your doctor if you observe: Fever of 101 or Higher, Coldness, Increased Pain, Numbness or Tingling, Change in Color, Inability to urinate, Using more than one pad per hour, Dizziness, Fainting spells, Swelling in the ankles, Chest pain, Prolonged hiccoughing, Increased palpitations (irregular heartbeat), Calf discomfort, Uncontrolled pain Home Medications: Medications to take at Discharge Aspirin E.C. [Ecotrin] 81 mg PO DAILY@0800 01/25/20 Atorvastatin Calcium [Lipitor] 80 mg PO QHS 01/25/20 Losartan Potassium [Cozaar] 50 mg PO DAILY 01/25/20 Other Amb Orders: 30-Day Event Recorder [[facility]] Location: None Selected Primary Care Physician: Care Physician,No Primary [Primary Care Provider] - Please follow up with your Primary Care Physician in: in 2 weeks Please Follow Up With: Mati Sanchez MD When: in 2 weeks Medical Necessity - Tobacco Use Smoking Status: Heavy Smoker (>10/day) Tobacco Use: Cigarettes Meaningful Use Info Meaningful Use Diagnoses (Choose all that apply): Ischemic CVA - CVA Therapy Assessed for PT,OT and/or ST?: Yes - Ischemic Stroke Antithrombotic order at d/c?: Yes Dx of Atrial fib/flutter?: No Anticoagulant at discharge?: Yes Statins at discharge?: Yes Primary Dx Acute Ischemic CVA?: Yes IV tPA ordered during stay?: Yes Inpatient E&M: 17701 Disch Hosp
--- NOTE | 2020-01-25 10:22 | CASEMGMT ---
Social Work SW spoke with [place] in Inpatient Rehab and pt has been accepted and can transfer to today by 1099 or Tuesday. SW spoke with JAME Mcmahon and informed of this. Physician notified and Pt ready to d/c today. Staff made aware pt needs to arrive at by 1100. SW attempted to speak with pt however pt sleeping soundly and pt does not awake to . Phone call to pt dgt Columba and informed of d/c plan. Columba agreeable. Plan: Rehab unit today JESUS Melchor
== END 2020-01-25 10:50 | DRG 62 ==
LOC: ED 21:11 → ICU 22:26
PROVIDERS: Admitting Provider Student in an Organized Health Care Education/Training Program; Emergency Provider Emergency Medicine; Referring Provider Student in an Organized Health Care Education/Training Program; Visit Provider Internal Medicine
DX: I63.81 Other cerebral infarction due to occlusion or stenosis of small artery (principal); G81.94 Hemiplegia, unspecified affecting left nondominant side; I16.1 Hypertensive emergency; N17.9 Acute kidney failure, unspecified; R47.81 Slurred speech; R29.704 NIHSS score 4; N18.9 Chronic kidney disease, unspecified; F17.210 Nicotine dependence, cigarettes, uncomplicated; Z79.82 Long term (current) use of aspirin; Z79.899 Other long term (current) drug therapy
CPT/HCPCS: 36415; 70450; 70496; 70498; 70551; 71045; 80048; 80061; 80076; 83036; 83605; 84484; 85025; 85610; 85730; 87040; 87633; 87635; 92507; 92522; 92610; 93005; 93306; 94799; 97162; 97166; 97802; 99285; 99406; J2997; J7030; Q9967; A4216; J2405; U0003

== ENCOUNTER 2020-01-25 11:10 | Inpatient (IN) | payer MEDICARE, OTHER, SELFPAY ==
[2020-01-25 01:09] VITALS: BMI 26.1
[2020-01-25 11:34] VITALS: BP 143/81; PULSE 83; RESP 17; TEMP 36.5; O2SAT 95; BMI 25.6; BMI 25.8
--- NOTE | 2020-01-25 12:00 | NURSING ---
Patient pleasant, alert and oriented with forgetfullness. Using call light appropriately.
--- NOTE | 2020-01-25 17:30 | NURSING ---
Patient getting up from the toilet with nursing assistants help and requested to do his own aquiles care and when done so, his left knee buckled and he lost balance and she assisted him to a sitting position. 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 BP 151/[address] Caballero aware, Daughter called and aware.
[2020-01-25 19:20] VITALS: BP 154/104; PULSE 77; RESP 16; TEMP 36.6; O2SAT 95
[2020-01-25 20:00] VITALS: O2SAT 97
[2020-01-25] MEDS: Atorvastatin Calcium 80 MG Tablet PO (22:04)
[2020-01-25] MEDS: Senna/Docusate Sodium 1 Tablet 2 TABLET PO (22:04)
[2020-01-26] VITALS (9 sets, daily range): BP systolic 159–182; BP diastolic 84–109; PULSE 60–77; RESP 16–18; TEMP 36.5–36.6; O2SAT 97–99
[2020-01-26] MEDS: Enoxaparin 40 MG/0.4 ML Syringe SC (05:02)
[2020-01-26] MEDS: Losartan Potassium 50 MG Tablet PO (07:49)
[2020-01-26] MEDS: Aspirin E.C. 81 MG Tablet PO (07:49)
[2020-01-26] MEDS: Senna/Docusate Sodium 1 Tablet 2 TABLET PO (07:50)
--- NOTE | 2020-01-26 08:56 | PCM.HP.STD ---
Problem List (1) Left-sided weakness Status: Acute Comment: Due to recent R MCA ischemic CVA. Reeived TPA and the follow up MRI showed R posterior internal capsule lacunar ischemic infract (2) Hemianopia Status: Acute Comment: this has resolved (3) Low HDL (under 40) Status: Chronic (4) Dyslipidemia Status: Chronic (5) Tobacco dependence Status: Chronic Comment: 1 PPD X 45-50 years (6) Hypertensive emergency Status: Resolved Comment: treated with Nicardipine in the ED to control the BP prior to the administration of TPA (7) HTN (hypertension) Status: Chronic Comment: He was diagnosed with HTN approximattely 6 years prior to the CVA but, he elected not to take medication and then never followed up with PCP. (8) FH: colon cancer Status: Chronic Comment: in his mother (9) Dehydration Status: Acute (10) LVH (left ventricular hypertrophy) Status: Chronic Comment: moderate (11) Diastolic dysfunction Status: Chronic Comment: stage 1 History of Present Illness Date of Admission: 01/25/20 Chief Complaint: Debility due to stroke with left hemiparesis and cognitive dysfunction The pt is a 69 YO male with a PMH of untreated HTN (diagnosed 6 years prior to CVA but he declined to treat) , Long standing tobacco dependence and social ETOH use who presented to the ED at [facility] on 01/22/20 c/o sudden onset left side weakness and slurred speech per his family. NIH at presentation to the emergency rtment was 4. He was emergently taken to CT scan which was unremarkable and revealed no evidence of acute infarction. CTA of the head and neck showed no significant areas of stenosis. Consult was obtained with [facility] tele-neurology and TPA was recommended. Prior to TPA his blood pressure was controlled with nicardipine. Post TPA he was transferred to the intensive care unit. Follow-up MRI showed no hemorrhage. There was a right posterior internal capsule lacunar ischemic CVA present. He had persistent left side weakness, arm greater than leg. Telemetry while in the ICU showed no AF. A TTE showed moderate LVH and stage 1 diastolic dysfunction with a normal EF. The bubble contrast was negative for R to L shunt. Lipid panel showed a LDL of 132 and a low HDL. He was started on ASA while in the ICU and also started no Losartan for uncontrolled HTN. Due to persistent left side weakness the decision was made to transfer to in rehab. Ed was admitted to the inpatient acute rehab floor on 01/25/2020 for greater than 3 hours of therapy daily to restore him at or near his prior level of function. The patient lives in a motor home alone and has 4 steps with 1 handrail to enter his home. He was independent with ADL's, mobility and driving prior to hospitalization. Past Medical History Past Medical History (Chronic Problems): Chronic Problems Low HDL (under 40) (Chronic) Dyslipidemia (Chronic) Tobacco dependence (Chronic) 1 PPD X 45-50 years HTN (hypertension) (Chronic) He was diagnosed with HTN approximattely 6 years prior to the CVA but, he elected not to take medication and then never followed up with PCP. FH: colon cancer (Chronic) in his mother LVH (left ventricular hypertrophy) (Chronic) moderate Diastolic dysfunction (Chronic) stage 1 Allergies No Known Allergies Allergy (Verified 01/22/20 20:47) Home Medications: Ambulatory Orders Medication Instructions Recorded Aspirin E.C. [Ecotrin] 81 mg PO DAILY@0800 01/25/20 Atorvastatin Calcium [Lipitor] 80 mg PO QHS 01/25/20 Losartan Potassium [Cozaar] 50 mg PO DAILY 01/25/20 Surgical History: noncontributory Psychiatric History: No pertinent psych hx Lives: Alone Smoking Status: Heavy Smoker (>10/day) - 1 PPD for 45-50 years. Alsohad secondary exposure as a child.....his father smoked 3 PPD. Tobacco Use: Cigarettes, Cigars Alcohol: Occasional - he has a few beers a couple times a week Drugs: None - *Family History Maternal History Items: Cancer - mother had colon CA, Hypertension Paternal History Items: Diabetes, Heart Disease, - - severe PVD with hx of BL LE amputations to the groin Sibling History Items: Heart Disease Review of Systems Constitutional: Reports: Weakness. Denies: Anorexia, Chills, Fever, Weight Change Eyes: Denies: Blurred vision, Double vision, Vision Change HEENT: Denies: Difficulty Swallowing, Dysphasia, Hard of Hearing, Head Aches, Hearing Changes, Sinus Congestion, Sinus Drainage, Sore Throat Cardiovascular: Reports: - - He has a holtor monitor that was ordered prior to tansfer to the rehab unit. Denies: Chest Pain, Chest Pressure, Edema, Light Headedness - unit, Orthopnea, Palpitations, Paroxysmal Noc. Dyspnea Respiratory: Reports: Cough - occasional and he tells me this is s smokers cough. Denies: Shortness of breath at rest, Sputum production Gastrointestinal: Denies: Abdominal Pain, Nausea, Vomiting Genitourinary: Reports: Hesitancy, Nocturia, - - does not feel that he is completely emptying his bladder. Has nocturia 1-2 times a night. Denies: Dysuria, Incontinence Musculoskeletal: Denies: Joint Pain, Joint Tenderness Skin: Denies: Jaundice, Rash, Skin Changes, Wounds Neurological: Reports: Balance problems, Incoordination, - - having increased impulsivity, gets distracted easily. Denies: Blurred vision, Double vision, Change in Speech, Slurred speech, Focal weakness, Headaches, Numbness, Tingling, Tremor, Seizures Psychiatric: Denies: Anxiety, Depression, Homicidal Ideations, Suicidal Ideations Endocrine: Denies: Change in Body Habitus, Hx of Irradiation, Hx of Thyroiditis Hematologic/ Lymphatic: Denies: Adenopathy, Easy Bruising, Easy Bleeding, Hx of blood clot VTE Information - Inpt Only VTE Present on Admission: No VTE Mechan Device Prophylaxis: Knee High TORRES Hose VTE Pharm Prophylaxis ordered?: Yes Patient Problems: Active and Suspected Problems Left-sided weakness (Acute) Due to recent R MCA ischemic CVA. Reeived TPA and the follow up MRI showed R posterior internal capsule lacunar ischemic infract Hemianopia (Acute) this has resolved Dehydration (Acute) - Physical Exam Vitals/I&O's: Vital Signs Temp Pulse Resp BP Pulse Ox 97.7 F L 69 16 159/109 H 99 01/26/20 07:36 01/26/20 07:36 01/26/20 07:36 01/26/20 07:36 01/26/20 07:36 Oxygen Flow Rate (L/min) 2 Oxygen Delivery Method Nasal Cannula Weight: 174 lb 13.225 oz Body Mass Index (BMI) 25.6 Finger Stick Blood Glucose 110 Intake and Output for Last 24 Hours 01/24/20 01/25/20 01/26/20 23:59 23:59 23:59 Intake Total 400 / 400 360 / 360 Output Total 250 / 250 Balance 400 / 400 110 / 110 General: Alert, Oriented x3, Cooperative, No apparent distress, Well developed, Well nourished, - HEENT: Atraumatic, PERRLA, EOMI, Normocephalic Oral: No Gingival or Mucosal Lesions/ Ulcerations, Dry Mucosa Neck: Supple, No JVD, Negative Carotid Bruits, No Nodes Lungs: Clear to auscultation, Normal air movement, No rhonchi, No wheeze, No rales Cardiovascular: Regular rate, Regular Rhythm, Normal S1, Normal S2, No murmurs, No Ectopic Activity, No rub noted, No Gallop Abdomen: Bowel Sounds Present, Soft, Non Tender, Non-Distended, Bowel Sounds Not Present Extremities: No clubbing, No cyanosis, No edema, Capillary Refill Less than 3 Seconds Skin: No rashes, No breakdown Musculoskeletal: No Tenderness to Palpation of Joints or Extremities, No Muscle Wasting Neurological: Cranial nerves II-XII grossly intact, Unsteady Gait, - - No facial droop, no dysarthria, 5/5 strength in the right upper extremity and right lower extremity. Left upper extremity is able to resist gravity but rapidly drifts down to the bed. He is able to extend the left lower extremity at the knee and has good strength. Able to dorsiflex and plantarflex the left foot and resist my efforts. No neglect. Intact sensation to upper and lower extremities bilaterally. No ataxia. Teleneurologist diagnosed with complete hemianopia but I do not detect this today. Psych/Mental Status: Normal Affect, Appropriate, - - He realizes he has been neglecting his health. He knows he will have to follow up with PCP regularly to maintain good health. He vows that he is done smoking. He has been exercising regularly and wants to continue with this going forward. Current Medications Aspirin (Ecotrin) 81 mg PO DAILY@0800 [facility] Last Admin: 01/26/20 07:49 Dose: 81 mg Documented by: Atorvastatin Calcium (Lipitor) 80 mg PO QHS [facility] Last Admin: 01/25/20 22:04 Dose: 80 mg Documented by: Bisacodyl (Dulcolax) 10 mg RECTAL .PRN X 1 PRN PRN Reason: Constipation Enoxaparin Sodium (Lovenox) 40 mg SC DAILY@0600 [facility] Last Admin: 01/26/20 05:02 Dose: 40 mg Documented by: Losartan Potassium (Cozaar) 50 mg PO DAILY [facility] Last Admin: 01/26/20 07:49 Dose: 50 mg Documented by: Magnesium Hydroxide (Milk Of Magnesia) 30 ml PO .PRN X 1 PRN PRN Reason: Constipation Senna/Docusate Sodium (Senokot-S, Karina-Colace) 2 tablet PO BID [facility] Last Admin: 01/26/20 07:50 Dose: 2 tablet Documented by: Sodium Chloride () 10 - 40 ml IV UD PRN PRN Reason: SALINE FLUSH Assessment/Plan All Active Problems Acute right arterial ischemic stroke, middle cerebral artery (MCA) (Acute) Left-sided weakness (Acute) Hemianopia (Acute) Hypertensive emergency (Resolved) Dehydration (Acute) Impressions 1. Debility secondary to acute right MCA ischemic infarct on 01/22/2020. Patient had hypertensive emergency in the emergency department and was treated with nicardipine prior to receiving TPA at the recommendation of [facility] tele-neurology. Following TPA MRI revealed acute right posterior internal capsule lacunar CVA. Patient has persistent left side weakness. 2. Hypertension-diagnosed in approximately 2013 but patient elected not to take medication. 3. Tobacco dependence with a 45 to 50-year pack history. 4. Dyslipidemia 5. Low HDL 6. Elevated creatinine at presentation to the emergency room on 01/22/2020 secondary to dehydration. 7. Mild periventricular white matter ischemic changes on MRI 8. Moderate LVH with an EF of 65% 9. Stage I diastolic dysfunction 10. Negative bubble study for right to left interatrial shunt 11. Family history of colon cancer in his mother. Patient states colonoscopies have been negative in the past and his last colonoscopy was less than 5 years ago. PLAN PT for gait stability OT for ADL's ST for evaluation Analgesics as needed Bowel protocol Fall precautions Assess for Anxiety/Depression DVT prophylaxis with Lovenox 40 mg subcutaneously daily Follow up with PCP and neurology following DC from IP Rehab Smoking cessation was discussed with the patient and he assures me that he will never smoke again. We offered a nicotine patch if he had cravings and mentioned that the hospital has a smoking cessation program if he feels the urge to smoke post discharge Blood pressure is uncontrolled at this point on 50 mg of losartan daily. We will add metoprolol 25 mg twice daily and hydralazine 10 mg p.o. every 4 hours as needed systolic greater than 140 and diastolic greater than 85. Goal for blood pressure is less than 130/80. We discussed his goals for management of cholesterol. HDL greater than 40 and LDL 70 or less. We also discussed the importance of regular follow-up with a primary care physician for preventative health care and maintenance of appropriate blood pressure. Inpatient E&M: 21283 Init Hosp L3
--- NOTE | 2020-01-26 09:18 | PCM.RU.PYE ---
Admission Information Primary Diagnosis:: R cerebral CVA. REceived TPA but, has residual left side weakness, gait instability.......using a hemiwalker currently Status Changes from Prescreening?: No changes Identified Actual Problem List:: Cognitve Impr/Memory Loss, Mobility Impaired, Self Care Deficit, Know.Dfct of Medicaitons, BP, Hypertension, Fluid Change-Dehydration Potential Problem List:: DVT, Bleeding, Infection, UTI, Aspiration, Falls, Skin Integrity, Depression Risk of Complications DVT: LMWH, TORRES Hose Bleeding: Monitor Lab Values, Nursing to Teach Precautions for anti-coagulation therapy., Wound, if applicable, to be assessed every shift., Stroke patients assessed for lethargy or change in status. Infection: Clinical Staff to Monitor for S/S of infection:, S/S of infection include fever, redness, warmth, etc. Urinary Tract Infection: Monitor for frequency, burning, discomfort, or incontinence., Nursing will obtain urine sample for urinalysis and C&S when ordered. Aspiration: Clinical staff will monitor for coughing, drooling, congestion., Speech will evaluate swallowing and dsyphasia., Nursing will monitor patient swallowing during meals. Falls: Patient will be evaluated for Fall Precautions, Patient will be placed on Fall Precautions as indicated per protocol. Skin Breakdown: Nursing will assess skin daily using assessment tool., Nursing will place on Skin Breakdown Precautions as indicated. Pain: Clinical staff will assess patient's pain level per protocol., Medications will be given, if needed, and the pain level reassessed., Other methods: Massage, distraction, decrease stimulus, etc. used PRN. Plan of Care Patient requires physician specializing in physical medicine and rehab oversight to provide close medical supervision of rehab issues including: Pain Management, Sleep Problems, Bowel and Bladder, Medical and co-morbidity Management, DVT prophylaxis, Rehabilitation Leadership, Coordination of treatment team Patient needs Physical Therapy: For a minimum of 1 hour, At least 5 out of 7 days Patient needs Physical Therapy to improve:: Mobility, Mobility, Mobility, Strengthening, Transfers, Stretching, ROM, Endurance, Stairs, Gait, Balance Patient needs Occupational Therapy: For a minimum of 1 hour, At least 5 out of 7 days Patient needs Occupational Therapy to improve ADL's incl.: Eating, Grooming, Bathing, Dressing, Toileting, Toilet transfers, Community Reintegration, Higher functioning activities, Household tasks, Adaptive Equipment, Splinting, Other activities as determined Patient requires speech therapy: For a minimum of 1 hour, At least 5 out of 7 days Patient requires speech therapy for: Swallowing, Cognition, Language Skills, Compensatory Strategies Patient requires 24/ Rehabilitation Nursing for: Pain Issues, Identifying and preventing risk factors, Monitoring and reporting current medical conditions, Assisting with ambulation, transfer, and all ADL's, Teaching patients about disease process and medications, Family teaching, Providing safe environment, Bowel and Bladder Issues, Skin integrity, Medication Management Patient needs Technical Implementation Lead/ Case Management for: Discharge Planning, Arranging Home Equipment or Services, Family Interventions Patient needs Dietary and Nutrition Services for: Adequate Nutrition, Nutritional Supplements, Nutritional Education Goals Patient will remain: free from falls, or injury at time of discharge. Patient will perform bed mobility at: MOD I level of assist. Patient will complete transfers from bed to chair at: MOD I level of assist. Patient will ambulate: 100 feet, with MOD I assist, with LRD Patient will complete upper body dressing at: MOD I level of assist. Patient will complete lower body dressing at: MOD I level of assist. Patient will complete toileting at: MOD I level of assist. Patient will perform bathing at: MOD I level of assist. Patient will complete grooming at: MOD I level of assist. Patient will complete home management skills at: MOD I level of assist. Patient will achieve: at MOD I assist, - - 4 steps Patient will have pain level of: of 3 or less Patient's skin will: remain intact, free from infection. Patient will receive: adequate nutrition. Discharge Planning Pt Prognosis for Sig. Practical Improv. w/in Reasonable Time: Good Estimated Length of stay (days): 15 Anticipated D/C Destination: Home with Home Health Was Preadmission Assessment Accurate?: Yes
[2020-01-26] MEDS: Metoprolol(XL)Succ 25 MG Tablet PO ×2 (13:01→20:07)
[2020-01-26] MEDS: hydrALAZINE 10 MG Tablet PO ×2 (13:05→22:42)
--- NOTE | 2020-01-26 17:22 | NURSING ---
new strip applied for 30 day event monitor d/t reading poor skin connection, pt tolerated well.
[2020-01-26] MEDS: Atorvastatin Calcium 80 MG Tablet PO (20:06)
[2020-01-27] VITALS (13 sets, daily range): BP systolic 155–178; BP diastolic 86–107; PULSE 62–69; RESP 16–18; TEMP 36.4–36.6; O2SAT 94–96; BMI 25.6
[2020-01-27] MEDS: hydrALAZINE 10 MG Tablet PO ×4 (02:20→21:09)
[2020-01-27] MEDS: Enoxaparin 40 MG/0.4 ML Syringe SC (05:49)
[2020-01-27] MEDS: Metoprolol(XL)Succ 25 MG Tablet PO ×2 (07:36→21:11)
[2020-01-27] MEDS: Losartan Potassium 50 MG Tablet PO (07:37)
[2020-01-27] MEDS: Aspirin E.C. 81 MG Tablet PO (07:37)
[2020-01-27] MEDS: Atorvastatin Calcium 80 MG Tablet PO (20:57)
--- NOTE | 2020-01-27 22:47 | NURSING ---
MARKETING BUSINESS ANALYST made this nurse aware of elevated blood pressures this hs. BP of 164/107 at 2100. SCheduled Lopressor given along with PRN dose of apresoline 10 mg. MARKETING BUSINESS ANALYST rechecked the BP at 2220 and BP still elevated to 174/100 with dynamap. MARKETING BUSINESS ANALYST rechecks BP with manual cuff and BP still noted to be 178/[address] Romo pagedanae with new order of Clonidine 0.3 mg for elevated BP. will administer and recheck vitals.
--- NOTE | 2020-01-27 22:53 | NURSING ---
2100 pt bp rechecked at this and was 164/107 with hr at 69, prn apresoline given as per order. will recheck bp in approx an hour. 0 bed alarm going off and pt sitting on the edge of the bed stating that he was going to shut the door, pt reeducated that with his alarms on and for his safety we can not shut the door but the curtain could be pulled to keep the light out. bp rechecked with monitor and was 174/100 with heart rate of 69. rn made aware, will recheck with manual bp cuff in 10 minutes 2229 bp manually was 178/100 and hr was 69. rn to call hospitalist and received new order for clonidine 0,3
[2020-01-27] MEDS: Clonidine HCl 0.1 MG, Clonidine HCl 0.2 MG 0.3 MG PO (23:02)
--- NOTE | 2020-01-27 23:02 | NURSING ---
2100 pt bp rechecked prior to giving hs medications and was found to be 164/107 and hr was 69, prn apresoline given as per order and will recheck bp in approx a hour. 0 pt bed alarm was going off and pt was found sitting on the edge of the bed stated that he was trying to close the door to his room. pt reeducated that with alarms on his door cannot be shut for his safety but the curtain can be closed to keep the light out. pt was agreeable to this. bp at this time was 174/100 and hr was 69 with the monitor. will recheck manually in 10 min. rn aware of bp values 2229 bp manually was 178/100. rn to call hospitalist, new order received for clonidine 0.3mg 2299 clonidine at this time will recheck bp
--- NOTE | 2020-01-27 23:43 | NURSING ---
2340 bp rechecked and was 162/101 and hr was 61 will continue to monitor bp
[2020-01-28] VITALS (12 sets, daily range): BP systolic 121–178; BP diastolic 72–102; PULSE 60–69; RESP 16–18; TEMP 36.6–36.7; O2SAT 95–96; BMI 25.6
[2020-01-28] MEDS: hydrALAZINE 10 MG Tablet PO ×2 (01:55→06:42)
--- NOTE | 2020-01-28 02:05 | NURSING ---
pt bp rechecked and was 155/96 with hr at 62. apresoline given as per orders.
--- NOTE | 2020-01-28 04:32 | NURSING ---
reviewed and agree with TOASTER ELEMENT REPAIRER charting of assessment and functionals.
[2020-01-28] MEDS: Enoxaparin 40 MG/0.4 ML Syringe SC (05:22)
[2020-01-28 05:51] LABS: Hematocrit 51.9 % (40-54); Hemoglobin 17.3 g/dL (13.0-16.5); Mean Corp Hgb Conc 33.3 g/dL (32-36); Mean Corpuscular Hgb 29.8 pg (27.0-32.0); Mean Corpuscular Volume 89.5 fL (80-94); Mean Platelet Vol. 10.3 fl (6.2-12.0); Platelet Count 204 K/mm3 (150-450); RBC Distribution Width SD 42.5 fl (35.1-43.9); White Blood Count 8.1 K/mm3 (4.4-11.0)
[2020-01-28 06:26] LABS: ALB/GLOB Ratio 0.9 RATIO (0.9-2.4); AST(SGOT) 36 U/L (15-37); Alanine Aminotransfer ALT/SGPT 47 U/L (16-61); Albumin, Serum 3.3 g/dL (3.2-5.0); Alkaline Phosphatase 83 U/L (45-117); Anion Gap 3 (5-15); BUN 25 mg/dL (7-18); BUN/Creat Ratio 19.4 RATIO (10-20); Calcium,Total 8.8 mg/dL (8.5-10.1); Chloride 105 mmol/L (98-107); Creatinine, Serum 1.29 mg/dL (0.70-1.30); EST Glomerular Filtration Rate 59 mL/min (>60); Est Glom Filt Rate - Afr Amer 71 mL/min (>60); Estimated Creatinine Clearance 54.81 ml/min; Globulin 3.7 g/dL (2.2-4.2); Glucose 95 mg/dL (74-106); Sodium Level 139 mmol/L (136-145); Thyroid Stim Hormone (TSH) 4.82 uIU/mL (0.358-3.74)
--- NOTE | 2020-01-28 06:45 | NURSING ---
bp taken manually and was 170/102 with heart rate of 68, sitting with the monitor bp 178/100 and hr was 62, laying. apresoline given as per order.
--- NOTE | 2020-01-28 07:24 | PCM.PN.BLA ---
Progress Note And was admitted to the inpatient rehab unit on 01/25/2020 for debility secondary to recent right MCA ischemic infarct. His dtr Columba participated by phone. All their questions were answered. Ed is asking again why he is not able to use his left hand. Ed was seen on team rounds today. Afebrile Blood pressures have remained markedly elevated despite addition of metoprolol XL 25 mg twice daily to his drug regimen. Apresoline 10 mg PRN given multiple times yesterday. He also received 0.3 mg of Catapres p.o. last night for blood pressure markedly elevated despite Apresoline. His current blood pressure is 170/102 with a heart rate ranging from 62-69 recently. Maintaining appropriate oxygen saturation on RA Oral intake is fair. Discussed with nursing - no problems that need addressed other than BP. He is very forgetful and keeps saying he does not know why he had a stroke despite multiple staff repeating the CVA was due to long smoking hx and uncontrolled HTN. Reviewed the PT/OT/ST notes. He is very impulsive and has poor safety awareness. Has ambulated 20 feet with the hemiwalker. Needs constant cuing to maintain proper hand positioning with the HW. He is on regular textures and thin liquids. Poor short term memory. Medication list reviewed. All lab is been personally reviewed. Hemoglobin is increased at 17.3 today secondary to hemoconcentration. The BUN is up to 25 and the creatinine is 1.29. Sodium is 139 and the potassium is 4.0. Bilirubin is mildly increased at 1.2 but the remainder of the LFTs are within normal limits. TSH is mildly increased at 4.82. alert, NAD, sitting in the recliner during TEAM. Lungs-CTA Heart-regular rate and rhythm, no murmur, no gallop Abdomen-soft, nontender, nondistended, normal bowel sounds No peripheral edema No calf tenderness No rashes and no skin breakdown He is now able to move his shoulder on the left and also has movement at the elbow. No wrist extension or flexion and not able to move the fingers. He is now able to lift his arm on the left above his head with strain. Using the HW. He ihas poor impulse control and he getting up and moving around without calling for help and he is setting off the alarm. Last week his Left knee gave out while ambulating and he was lowered to the floor. He did not sustain any injuries. Impressions 1. Post stroke debility-right MCA distribution with left arm greater than left leg weakness and cognitive dysfunction 2. Impulsivity, poor safety awareness, short-term memory difficulty, cognitive dysfunction 3. Hypertension-not adequately controlled. Adjustments were made to the antihypertensive regimen 4. Dyslipidemia 5. Low HDL 6. Tobacco dependence 7. Moderate LVH and stage I diastolic dysfunction secondary to longstanding uncontrolled hypertension 8. Dehydration/hemoconcentration due to poor oral intake Start an antidepressant overnight trending pulse ox Adjust medication as needed to achieve a BP of < 130/80 and an LDL < 70. HDL may improve now that he is not smoking. Importance of regular F/U with PCP reinforced with Ed and Columba Normal saline IV x2 L overnight and discontinue in the a.m. Repeat a BMP on 01/30/2020 Encouraged him to increase his water intake STROKE Vital Signs/Narrative: Vital Signs Pulse BP 01/28/20 06:42 68 170/102 H Inpatient E&M: 97082 Subs Hosp L2
[2020-01-28] MEDS: Senna/Docusate Sodium 1 Tablet 2 TABLET PO (08:30)
[2020-01-28] MEDS: Metoprolol(XL)Succ 50 MG Tablet PO ×2 (08:30→21:20)
[2020-01-28] MEDS: Aspirin E.C. 81 MG Tablet PO (08:30)
[2020-01-28] MEDS: Lisinopril 20 MG Tablet PO (08:30)
--- NOTE | 2020-01-28 09:20 | NURSING ---
Pt set off personal alarm. Was attempting to self transfer. reeducated pt on the need to call for assistance. pt voices understanding. will continue to educate artificial insemination technician light use for staff assistance.
--- NOTE | 2020-01-28 10:17 | CASEMGMT ---
Social Work IDT met with patient and dtr via conference call for Team meeting. Discussed patient's progress in therapy. Pt is min-mod for transfers, ambulating 65b ft min-mod assist, as left knee can buckle, using a hemiwalker. Pt has left arm neglect, no hand dexterity, but regaining movement in shoulder and elbow. Pt is min assist for bathing, min for UE drEvelyn, mod for LE . ST working ST memory, retaining/recalling, impulsivity, poor safety awareness, speech intelligibility. Pt has elevated Bp. No pain, and sleeping well. Pt is impulsive and not consistent with using call-light. Explained Medicare benefit. Will ReTeam next week. Will continue to follow. PRASANNA SaundersW
[2020-01-28] MEDS: hydrALAZINE 25 MG Tablet PO ×2 (15:20→21:32)
--- NOTE | 2020-01-28 15:28 | CHAPLAIN ---
Type of Pastoral Visit _x__ Initial Visit ___ Follow-up Visit ___ On-call Visit ___ General Patient Visit ___ Spiritual Assessment ___ Family Conference ___ Bereavement ___ Rapid Response ___ Code Blue ___ Other (describe below) Pastoral Care Referral From _x__ Patient ___ Family ___ Nurse ___ Physician ___ Gaming Commissioner ___ Leather Parts Matcher ___ Other (describe below) Sacrament/Intervention _x__ Active listening ___ Anointing ___ Mormonism ___ Bereavement ___ Communion ___ Fauzia exploration ___ _x__ Life review _x__ Prayer ___ Reconciliation ___ Sacrament of Sick _x__ Supportive presence ___ Wedding ___ Other (describe below) Pastoral Comments patient is talkative and open to supportive visits; pt has not been religiously affiliated since childhood but was Pentecostalism at that time; pt describes very supportive family with whom he is actively involved; pt admits to feelings of being scared about health and his future;
--- NOTE | 2020-01-28 16:27 | CASEMGMT ---
Social Work PHQ-9 completed for pt. Score 04/22. Provided stroke support resources, [employer] and grab [employer] resources. Provided emotional support and ongoing supportive listening at length during conversation with pt. Pt tearful about stroke, struggles with loss of independence, helpless and processing who this happened to him. Pt agreeable to antidepressant. Physician notified. Will continue to follow. Fely Chan, INDUSTRIAL ROOFER HELPER LINOTYPE OPERATOR
[2020-01-28] MEDS: 0.9% Normal Saline 1,000 ML 150 ML IV (17:51)
[2020-01-28] MEDS: Atorvastatin Calcium 80 MG Tablet PO (21:20)
[2020-01-29] VITALS (11 sets, daily range): BP systolic 106–178; BP diastolic 72–102; PULSE 60–68; RESP 17–18; TEMP 36.4–36.5; O2SAT 97–100; BMI 25.6
[2020-01-29] MEDS: 0.9% Normal Saline 1,000 ML 150 ML IV (00:10)
[2020-01-29] MEDS: Enoxaparin 40 MG/0.4 ML Syringe SC (05:55)
[2020-01-29] MEDS: hydrALAZINE 25 MG Tablet PO ×4 (05:57→22:18)
[2020-01-29] MEDS: 0.9% Saline Lock 10 ML Syringe IV (06:00)
[2020-01-29] MEDS: Metoprolol(XL)Succ 50 MG Tablet PO ×2 (07:56→21:36)
[2020-01-29] MEDS: Aspirin E.C. 81 MG Tablet PO (07:56)
[2020-01-29] MEDS: Lisinopril 20 MG Tablet PO (07:57)
--- NOTE | 2020-01-29 12:20 | PCM.PN.BLA ---
Progress Note BP's are better but still high. He has had 4 doses of Hydralazine 25 mg over the past 24H. No adverse side effects with the addition of Lisinopril 20 mg daily to his drug regimen. Tolerating Metoprolol 50 mg BID with no bradycardia. oral intake is poor. A diuretic is not an option at this time. Discussed PHQ-9 with MELVI Geiger. Score was 10/27 and the patient was tearful and kept repeating, why did this happen to me? He is agreeable to starting an antidepressant. Alert, pleasant and appropriate. Falt affect but still manages to make some witty remarks L- CTA H RRR abd - soft,NT, BS's present no edema and no calf tenderness no rashes and no skin breakdown was ambulating in the nelson today with a St cane Impressions 1. post stroke debility 2. ischemic CVA- likely due to uncontrolled HTN and smoking 3. depression 4. elevated creat and hemoconcentration due to dehydration. Lab ordered for tomorrow AM to recheck BMP after he got 2 L oneed tof IV NS last night. Continue the current antihypertensive regimen and PRN Hydralazine.......just made changes to the antihypertensive regimen yesterday and wait a few half lives before increasing again. Start an antidepressant. Continue education regarding the importance of smoking cessation and controlling HTNto prevent additional strokes going forward. STROKE Vital Signs/Narrative: Vital Signs Pulse BP 01/29/20 10:02 68 155/95 H 01/29/20 10:00 68 155/95 H Inpatient E&M: [id number] Subs Hosp L2
--- NOTE | 2020-01-29 14:29 | NURSING ---
this nurse entered pt's room to find him leaning against the closet door, pt removed personal alarm and was attempting to self transfer to the restroom. Assisted pt to restroom than to recliner. pa and pressure alarm applied. reeducated on the need to call for assistance. demonstrated how to use call light for assistance.
[2020-01-29] MEDS: Atorvastatin Calcium 80 MG Tablet PO (21:34)
[2020-01-30] VITALS (8 sets, daily range): BP systolic 128–161; BP diastolic 70–96; PULSE 56–85; RESP 16–17; TEMP 36.6–36.8; O2SAT 95–98; BMI 25.6
[2020-01-30] MEDS: Enoxaparin 40 MG/0.4 ML Syringe SC (05:13)
[2020-01-30] MEDS: 0.9% Saline Lock 10 ML Syringe IV ×2 (05:14→17:24)
[2020-01-30 06:10] LABS: Anion Gap 4 (5-15); BUN 20 mg/dL (7-18); BUN/Creat Ratio 17.2 RATIO (10-20); Chloride 107 mmol/L (98-107); Creatinine, Serum 1.16 mg/dL (0.70-1.30); EST Glomerular Filtration Rate 66 mL/min (>60); Est Glom Filt Rate - Afr Amer 80 mL/min (>60); Estimated Creatinine Clearance 60.95 ml/min; Glucose 93 mg/dL (74-106); Potassium 3.9 mmol/L (3.5-5.1); Sodium Level 141 mmol/L (136-145)
[2020-01-30] MEDS: Metoprolol(XL)Succ 50 MG Tablet PO ×2 (08:00→20:29)
[2020-01-30] MEDS: Lisinopril 20 MG Tablet PO (08:00)
[2020-01-30] MEDS: Aspirin E.C. 81 MG Tablet PO (08:00)
--- NOTE | 2020-01-30 10:04 | PCM.PN.BLA ---
Progress Note BP this AM is 128/70. He received 4 doses of Hydralazine on 01/29/20. Oral intake was 1480 yesterday and he is making an effort to drink more. All lab was personally reviewed. The BUN/CREAT has come down from 25/1.29 to 20/1.16 with IV NS. No adverse reaction with the Lisinopril and the Metoprolol. Denies lightheadedness. No cough. Lugs - CTA H- RRR oriented X3 Impressions 1. post stroke debility 2. uncontrolled HTN - continue current drug regimen 3. depression - start sertraline at 50 mg daily in the AM STROKE Vital Signs/Narrative: Vital Signs Temp Pulse Resp BP Pulse Ox 01/30/20 08:00 60 01/30/20 07:20 97.8 F 56 L 17 128/70 H 98 Inpatient E&M: [id number] Subs Hosp L1
--- NOTE | 2020-01-30 14:30 | CHAPLAIN ---
Type of Pastoral Visit ___ Initial Visit _x__ Follow-up Visit ___ On-call Visit ___ General Patient Visit ___ Spiritual Assessment ___ Family Conference ___ Bereavement ___ Rapid Response ___ Code Blue ___ Other (describe below) Pastoral Care Referral From _x__ Patient ___ Family ___ Nurse ___ Physician ___ Rotary Lithographic Press Operator ___ Neonatal Nurse ___ Other (describe below) Sacrament/Intervention _x__ Active listening ___ Anointing ___ Tenriism ___ Bereavement ___ Communion ___ Fauzia exploration ___ _x__ Life review _x__ Prayer ___ Reconciliation ___ Sacrament of Sick _x__ Supportive presence ___ Wedding ___ Other (describe below) Pastoral Comments This r&d engineer stopped by room as patient was sitting alone there in chair; asked how pt was doing and he sounded discouraged and stated that things are not better; sat with pt; pt repeats some family stories that he spoke on Tuesday; pt is missing his grandchildren; pt admits to thinking more about how this is going to go down the road when he might do better to think about short term successes; talked about being inspired from his granddaughter who has recovered from serious athletic injuries; prayer and presence given
[2020-01-30] MEDS: hydrALAZINE 25 MG Tablet PO ×2 (15:59→22:17)
[2020-01-30] MEDS: Atorvastatin Calcium 80 MG Tablet PO (20:28)
[2020-01-30] MEDS: Mirtazapine 15 MG Tablet PO (20:29)
[2020-01-31] VITALS (8 sets, daily range): BP systolic 131–175; BP diastolic 78–99; PULSE 60–69; RESP 16–18; TEMP 36.6–36.8; O2SAT 97; BMI 25.6
[2020-01-31] MEDS: hydrALAZINE 25 MG Tablet PO ×3 (04:41→22:20)
[2020-01-31] MEDS: Enoxaparin 40 MG/0.4 ML Syringe SC (04:42)
[2020-01-31] MEDS: Metoprolol(XL)Succ 50 MG Tablet PO ×2 (08:08→21:22)
[2020-01-31] MEDS: Lisinopril 20 MG Tablet PO ×2 (08:10→21:22)
[2020-01-31] MEDS: Senna/Docusate Sodium 1 Tablet 2 TABLET PO (08:10)
[2020-01-31] MEDS: Aspirin E.C. 81 MG Tablet PO (08:10)
[2020-01-31] MEDS: 0.9% Saline Lock 10 ML Syringe IV ×2 (14:33→21:24)
--- NOTE | 2020-01-31 15:45 | NURSING ---
Pt alarm sounding at this time, upon entering room, pt standing up at out of recliner chair and leaning towards window and unsteady. Staff intervened and assisted pt back to recliner, education given on importance of not self transferring and safety. Will continue to closely monitor.
[2020-01-31] MEDS: Mirtazapine 15 MG Tablet PO (21:22)
[2020-01-31] MEDS: Atorvastatin Calcium 80 MG Tablet PO (21:22)
[2020-02-01] VITALS (8 sets, daily range): BP systolic 112–150; BP diastolic 64–78; PULSE 62–77; RESP 16–18; TEMP 36.7–37; O2SAT 94–96; BMI 25.6
[2020-02-01] MEDS: Enoxaparin 40 MG/0.4 ML Syringe SC (06:07)
[2020-02-01] MEDS: Metoprolol(XL)Succ 50 MG Tablet PO ×2 (08:07→19:43)
[2020-02-01] MEDS: Aspirin E.C. 81 MG Tablet PO (08:07)
[2020-02-01] MEDS: Lisinopril 20 MG Tablet PO ×2 (08:07→19:45)
[2020-02-01] MEDS: Senna/Docusate Sodium 1 Tablet 2 TABLET PO (08:08)
--- NOTE | 2020-02-01 14:33 | PN_ITS ---
Progress Note Slept well last night BP looking better today and has not required Hydralazine as of yet today Maintaining appropriate oxygen saturation on room air Still quite impulsive and getting up without assistance in setting off the alarm PT/OT/ST notes reviewed. No problems with nursing other than being impulsive and getting up without assistance No complaints today. He is still tearful when talking with me. His dtr Stephani wants him to go home with her at [place] until he is ready to be on his own again. He slept better last night with the addition of Remeron to his drug regimen. He is now able to move the fingers on the Left hand and gave me a weak hand explosive ordnance disposal technician. He is very frustrated at not being able to get his shorts and underwear down to use the urinal and then urinating on himself. Alert, oriented X 3. He is still very impulsive and forgetful and is frequently setting off the alarm Lungs - CTA HRRR no edema We spent > 50% of the visit today talking about depression in stroke patients and how this is normal and will improve. He was reassured that even though his left hand is weak he is progressing. He was reminded that progress was slow. Impressions 1. post stroke debility 2. uncontrolled HTN - continue current drug regimen for another few days before making any changes. Continue the Hydralzine PRN for now 3. depression - started mirtazapine 15 mg p.o. nightly I think he would benefit from psychotherapy in addition to the antidepressant at [place]. Inpatient E&M: [id number] Subs Hosp L2
[2020-02-01] MEDS: hydrALAZINE 25 MG Tablet PO (15:46)
[2020-02-01] MEDS: 0.9% Saline Lock 10 ML Syringe IV (18:56)
[2020-02-01] MEDS: Mirtazapine 15 MG Tablet PO (19:43)
[2020-02-01] MEDS: Atorvastatin Calcium 80 MG Tablet PO (19:43)
[2020-02-02] MEDS: Enoxaparin 40 MG/0.4 ML Syringe SC (05:56)
[2020-02-02 07:30] VITALS: PULSE 65
[2020-02-02] MEDS: Lisinopril 20 MG Tablet PO ×2 (07:30→20:13)
[2020-02-02] MEDS: Metoprolol(XL)Succ 50 MG Tablet PO ×2 (07:30→20:13)
[2020-02-02] MEDS: Aspirin E.C. 81 MG Tablet PO (07:30)
[2020-02-02 07:40] VITALS: BP 134/83; PULSE 65; RESP 18; TEMP 36.9; O2SAT 95
[2020-02-02 10:00] VITALS: BMI 25.6
[2020-02-02 10:15] VITALS: BP 130/78; PULSE 62
[2020-02-02 19:00] VITALS: BP 119/73; PULSE 70; RESP 16; TEMP 36.6; O2SAT 95
[2020-02-02 20:13] VITALS: BP 119/73; PULSE 70
[2020-02-02] MEDS: Mirtazapine 15 MG Tablet PO (20:13)
[2020-02-02] MEDS: Atorvastatin Calcium 80 MG Tablet PO (20:13)
[2020-02-03 03:27] VITALS: BMI 25.6
[2020-02-03] MEDS: Enoxaparin 40 MG/0.4 ML Syringe SC (05:39)
[2020-02-03 07:17] VITALS: PULSE 60
[2020-02-03] MEDS: Aspirin E.C. 81 MG Tablet PO (07:17)
[2020-02-03] MEDS: Metoprolol(XL)Succ 50 MG Tablet PO ×2 (07:17→20:25)
[2020-02-03] MEDS: Lisinopril 20 MG Tablet PO ×2 (07:18→20:25)
[2020-02-03 07:28] VITALS: BP 138/82; PULSE 60; RESP 20; TEMP 36.4; O2SAT 97
[2020-02-03 10:21] VITALS: BMI 25.6
[2020-02-03 19:00] VITALS: BP 99/69; PULSE 78; RESP 18; TEMP 36.7; O2SAT 95
[2020-02-03] MEDS: Mirtazapine 15 MG Tablet PO (20:24)
[2020-02-03] MEDS: Atorvastatin Calcium 80 MG Tablet PO (20:24)
[2020-02-03] MEDS: Senna/Docusate Sodium 1 Tablet 2 TABLET PO (20:24)
[2020-02-03 20:25] VITALS: BP 125/79; PULSE 76
[2020-02-04 02:19] VITALS: BMI 25.6
[2020-02-04 05:59] LABS: Anion Gap 4 (5-15); BUN 27 mg/dL (7-18); BUN/Creat Ratio 19.1 RATIO (10-20); Calcium,Total 8.6 mg/dL (8.5-10.1); Chloride 103 mmol/L (98-107); Creatinine, Serum 1.41 mg/dL (0.70-1.30); EST Glomerular Filtration Rate 53 mL/min (>60); Est Glom Filt Rate - Afr Amer 64 mL/min (>60); Estimated Creatinine Clearance 50.14 ml/min; Glucose 98 mg/dL (74-106); Magnesium 2.1 mg/dL (1.6-2.6); Potassium 4.3 mmol/L (3.5-5.1); Sodium Level 138 mmol/L (136-145)
[2020-02-04] MEDS: Enoxaparin 40 MG/0.4 ML Syringe SC (06:02)
[2020-02-04 07:00] VITALS: BP 123/77; PULSE 68; RESP 20; TEMP 36.4; O2SAT 96
[2020-02-04 07:29] VITALS: PULSE 68
[2020-02-04] MEDS: Metoprolol(XL)Succ 50 MG Tablet PO ×2 (07:29→20:38)
[2020-02-04] MEDS: Aspirin E.C. 81 MG Tablet PO (07:29)
[2020-02-04] MEDS: Senna/Docusate Sodium 1 Tablet 2 TABLET PO ×2 (07:29→20:38)
[2020-02-04] MEDS: Lisinopril 20 MG Tablet PO ×2 (07:30→20:37)
--- NOTE | 2020-02-04 08:19 | PN_ITS ---
Progress Note And was seen on team rounds today. His daughter Sandrine was present for rounds. Afebrile VSS-blood pressure control is much improved. Heart rate is within normal limits. Maintaining appropriate oxygen saturation on RA Oral intake is fair....he has lost about 3 and 1/2 lbs since admission to the rehab unit Discussed with nursing - no problems that need addressed Reviewed the PT/OT/ST notes Medication list reviewed. All lab was personally reviewed. Potassium is 4.3 and the sodium is 138. Magnesium is within normal limits at 2.1. BUN is elevated at 27 and the creatinine today is 1.41 which is up from 1.16 on 01/30/2020. His left leg gave out while getting off the toilet today and he was assisted to the ground by the nurse. No injuries reported. He is sleeping better but, he wakes up in the middle of the night and then can not go back to sleep. He denies ARORA, Palpitations, CP, dysuria. He has c/o lightheadedness to the thera pist at different times. MM are a little dry he is tearful at times still and depressed over his inability to do the things he used to do........the fact that he is improving was reinforced with him. Family is concerned that he seems to slur his speech at night when they talk with him on the phone........likely this is due to fatigue. The lightheadedness seems to come and go and he was encouraged to push the button the event monitor when this happens. H - RRR Lungs - CTA ADb - soft, NT, BS present no peripheral edema Impressions 1. post stroke debility 2. episodic lightheadedness 3. elevated creat today - ? urine retention? dehydration? Lisinopril? 4. HTN - much better control at present. Has not needed any PRN Hydralazine since the 5. Suspected BPH 6. Insomnia despite Remeron 7. Depression check a HH and orthostatics now. Add Melatonin 6 mg at HS - he takes this at home with good success He wanted to go home for his birthday this Tuesday but, I discouraged this and encouraged him to stay as long as possible in rehab because he will never get 3 hours of therapy a day post discharge from acute rehab......his dtr is in agreement Consult the restaurant crew member about the weight loss and food preferences. STROKE Vital Signs/Narrative: Vital Signs Temp Pulse Resp BP Pulse Ox 02/04/20 07:29 68 02/04/20 07:00 97.5 F L 68 20 H 123/77 H 96 Inpatient E&M: [id number] Subs Hosp L2
[2020-02-04 08:32] LABS: Hematocrit 47.2 % (40-54); Hemoglobin 15.2 g/dL (13.0-16.5)
[2020-02-04 11:22] VITALS: BP 115/68; BP 132/99; BP 135/77; PULSE 69; PULSE 71
[2020-02-04 14:03] VITALS: BMI 25.6
--- NOTE | 2020-02-04 15:16 | NURSING ---
personal alarm sounding. entered room to find pt attempting to self transfer. Assisted pt to the restroom. PA replaced on pt and pressure alarm placed under pt. Reeducated pt on the need to use call light for assistance. Demonstrated on how to call for assistance. pt voiced understanding.
--- NOTE | 2020-02-04 15:42 | CASEMGMT ---
Social Work IDT met with patient and daughter for Team meeting. Discussed patient's progress in therapy. Pt is using cane to walk 165 ft CGA on multiple surafaces, CGA for steps. However, when nursing works with pt, pt's knee shweta. Therapy to address. Pt is CGA for transfers and using GIVMORE sling on left arm for better posture and shoulder position. pt is supervision for all ADLS, strength is improving. ST is working with pt on educating to his deficits, ST memory as pt struggles to carry over information from say to day. Using external strategies and repetition to improve memory. DIT recommends pt is not safe at home alone. The goal is for pt to DC to dtrs home 02/13. Pt having dizziness - physician explained due to dehydration. Physician started on Melatonin for trouble sleeping and increased antidepressant. Will Reteam next week. Will Continue to follow. Fely Chan, PRASANNA CAR RETARDER OPERATOR
--- NOTE | 2020-02-04 19:20 | NURSING ---
pt alarm sounding at this time. RAILROAD BRAKEMAN Bailey responds to sounding alarm. RAILROAD BRAKEMAN just into room when pt fell down onto buttocks from a standing position. all staff responds to RAILROAD BRAKEMAN call for assist. this nurse and RAILROAD BRAKEMAN assist pt into standing position and into recliner. no head strike. pt has no complaints of pain or discomfort. pt then assisted from recliner into bed with assist x2. buttocks assessed and back. 2 bruises noted to Left flank with one small abrasion noted in the middle of a bruise. PA attached, Bed alarm initiated and call light within reach. dr narayanan and alexander notified of incident. this nurse calls pt SO Waterman and updated of fall info. per alexander dtr is allowed to stay this hs with pt. will continue to monitor pt
[2020-02-04 19:22] VITALS: BP 141/84; PULSE 72; RESP 18; TEMP 37; O2SAT 97
[2020-02-04 20:38] VITALS: BP 141/84; PULSE 72
[2020-02-04] MEDS: Mirtazapine 15 MG Tablet PO (20:38)
[2020-02-04] MEDS: MELATONIN 3 MG TABLET 6 MG PO (20:39)
[2020-02-04] MEDS: Atorvastatin Calcium 80 MG Tablet PO (20:39)
[2020-02-05] MEDS: Enoxaparin 40 MG/0.4 ML Syringe SC (05:43)
[2020-02-05 05:45] VITALS: PULSE 70
[2020-02-05] MEDS: hydrALAZINE 25 MG Tablet PO (05:45)
[2020-02-05 07:35] VITALS: BP 145/90; PULSE 70; RESP 18; TEMP 36.8; O2SAT 95
[2020-02-05 07:40] VITALS: PULSE 70
[2020-02-05] MEDS: Aspirin E.C. 81 MG Tablet PO (07:40)
[2020-02-05] MEDS: Metoprolol(XL)Succ 50 MG Tablet PO ×2 (07:40→20:53)
[2020-02-05] MEDS: Lisinopril 20 MG Tablet PO ×2 (07:41→20:54)
[2020-02-05 10:13] VITALS: BMI 25.6
--- NOTE | 2020-02-05 13:24 | NURSING ---
Spoke with Gabriel from behavioral health regarding pts depression, Gabriel states he will be in to see pt either Monday 02/05 or 02/06.
--- NOTE | 2020-02-05 17:30 | NURSING ---
personal alarm sounding. entered room to find pt attempting to self transfer. Assisted pt to bed. Reeducated on the need to use call light for assistance. voiced understanding.
[2020-02-05 20:36] VITALS: BMI 25.6
[2020-02-05] MEDS: MELATONIN 3 MG TABLET 6 MG PO (20:52)
[2020-02-05 20:53] VITALS: PULSE 69
[2020-02-05] MEDS: Senna/Docusate Sodium 1 Tablet 2 TABLET PO (20:53)
[2020-02-05] MEDS: Atorvastatin Calcium 80 MG Tablet PO (20:53)
[2020-02-05] MEDS: Mirtazapine 15 MG Tablet PO (20:53)
[2020-02-05 21:40] VITALS: BP 125/69; PULSE 67; RESP 18; TEMP 36.9; O2SAT 96
[2020-02-06 07:09] LABS: Anion Gap 5 (5-15); BUN 22 mg/dL (7-18); Calcium,Total 8.9 mg/dL (8.5-10.1); Chloride 103 mmol/L (98-107); Creatinine, Serum 1.16 mg/dL (0.70-1.30); EST Glomerular Filtration Rate 66 mL/min (>60); Est Glom Filt Rate - Afr Amer 80 mL/min (>60); Estimated Creatinine Clearance 60.95 ml/min; Glucose 101 mg/dL (74-106); Potassium 4.4 mmol/L (3.5-5.1); Sodium Level 136 mmol/L (136-145)
[2020-02-06] MEDS: Enoxaparin 40 MG/0.4 ML Syringe SC (07:24)
[2020-02-06 08:15] VITALS: BP 147/87; PULSE 81
[2020-02-06] MEDS: Aspirin E.C. 81 MG Tablet PO (08:15)
[2020-02-06] MEDS: Metoprolol(XL)Succ 50 MG Tablet PO ×2 (08:15→21:01)
[2020-02-06] MEDS: Lisinopril 20 MG Tablet PO ×2 (08:18→21:01)
[2020-02-06 08:29] VITALS: BP 147/87; PULSE 81
[2020-02-06] MEDS: hydrALAZINE 25 MG Tablet PO (08:29)
[2020-02-06 08:33] VITALS: BP 147/87; PULSE 83; RESP 17; TEMP 36.6; O2SAT 96
[2020-02-06 09:03] VITALS: BMI 25.6
--- NOTE | 2020-02-06 09:23 | NURSING ---
pt's daughter present this AM. Stayed the night to sit with to help deter self transferring throughout the night. Daughter to have family training ,this Am, with pt and therapy to prepare to provided care for pt on dc.
--- NOTE | 2020-02-06 09:53 | PCM.PN.BLA ---
Progress Note Afebrile VSS systolic blood pressures been creeping up. Maintaining appropriate oxygen saturation on RA Oral intake is fair. His weight is decreased 5 pounds since admission. Ensure was added to his meals by the dietitian. Discussed with nursing - no problems that need addressed other than continued impulsivity. His dtr Columba has been staying at night and he is sleeping better now. Reviewed the PT/OT/ST notes Medication list reviewed. Stephani stayed this morning and had instruction by the therapists in how best to help her father. She was able to complete several transfers with add using a gait belt. She walked with him 75 feet x 2 times. Exercises were reviewed with her. On 02/04/2020 he ambulated 165 to 200 feet with a straight cane on different surfaces. He did 10 sit to stands in 30 seconds on 02/04/2020 and completed the tug and 14.93 seconds with a straight cane on that date. He is still requiring moderate to max cueing to use his memory block and to improve retention of information. He completed listening to a paragraph And answering questions with 60% accuracy today. He is very anxious about his bills and managing his finances. He continues to be impulsive and has trouble concentrating and focusing on the task at hand. I suspect that this has a lot to do with depression. He has had a cough for the past 2 days. He denies postnasal drainage but states that he has chronic sinus problems. He has been afebrile. Auscultation of his lungs reveals persistent crackles in the right base even after doing 5 deep breaths with the incentive spirometer and getting the float up to 1750. He has not been regularly doing the incentive spirometer and I reminded him that he is to do 10 breaths every hour that he is awake. He initially tried to blow into the incentive spirometer but after I reminded him you need to suck in he was able to do without further cueing. Heart-regular rate and rhythm Abdomen-soft, nontender, nondistended, bowel sounds present No peripheral edema His affect is less flat than it was on Tuesday and he did not cry today. Impressions 1. post stroke debility 2. episodic lightheadedness - tilt was negative 3. elevated creat 02/04/20.......better today at 1.16 -post void residual is unremarkable. No change was made to the lisinopril. 4. HTN - this is creeping up again. BP over the past 48 hours has ranged from 123/77-140 7/87. 5. Suspected BPH - he has nocturia but, he is not retaining urine 6. Insomnia despite Remeron....resolved with the addition of Melatonin to the drug regimen 7. Depression - improving some 8. cough with persistent rales in the left base even following several deep breaths. CBC with diff and a BMP in the AM PA and Lat CXR IS 10 breaths every hour that he is awake I do not feel at this time that he is ready to go home. Due to the impulsivity he would need 24 hour supervision and his dtr works registered phlebotomist part time. I discussed this with Stephani and Ed separately. Ed seems agreeable. I also explained to Ed that I think another few weeks in therapy would benefit him greatly. The antidepressant will be more effective at that time and he would be better able to focus an concentrate on what he is doing. He is still requiring a lot of cueing and when he is distracted while ambulating he falls. He was very independent prior to the stroke and I think he still requires daily therapy to restore his function and independence to their prior level or as near as possible.I think there is a good chance he can live independently in the future is he has more time having daily therapy and I feel the treatment of the depression is critical to his performance in therapy and his recovery. Add Cardura 1 mg at HS STROKE Vital Signs/Narrative: Vital Signs Temp Pulse Resp BP Pulse Ox 02/06/20 08:33 97.8 F 83 17 147/87 H 96 02/06/20 08:29 81 147/87 H 02/06/20 08:15 81 147/87 H Inpatient E&M: 61763 Subs Hosp L2
--- NOTE | 2020-02-06 15:32 | CASEMGMT ---
Social Work Spoke with pt's daughter about alternative DC options. Discussed SNF for short term care. Explained Medicare benefit. Explained 14 day isolation and outdoor visitation policies at any SNF. Currently, dtr is staying the night in [place] to assist with pt impulsiveness at night. Educated that a SNF will most likely not allow her to stay due to visitation and most SNFs do not have 1:1 sitters. Dtr concerned about pt regressing in a SNF vs taking him home to be with her. Discussed risk/benefit to home and SNF. Provided support. Emailed [facility] SNF list. Explained pt will continue to get more therapy at a SNF than HHC or OP. Encouraged her to talk with pt and discuss options. Will ReTeam Tuesday and to notify SW by Team of decision. Dtr appreciative. Will continue to follow. PRASANNA SaundersW
--- NOTE | 2020-02-06 17:45 | RAD_ITS ---
STUDY: X-RAY CHEST REASON FOR EXAM: Male, 69 years old. Cough TECHNIQUE: Frontal and lateral views of the chest COMPARISON: 01/22/20 FINDINGS: There is stable elevation of the right hemidiaphragm with right basilar atelectasis. The lungs are otherwise clear. There are no pleural effusions. There is no pneumothorax. The heart is normal in size. There is a battery pack noted in the left chest wall. The visualized osseous structures are within normal limits. RAD/Chest PA and Lateral IMPRESSION: Stable elevation of the right hemidiaphragm with right basilar atelectasis. No acute thoracic pathology. Electronically Signed: Gordo Hoyt, at 18:03 EDT Tel , Service support ,
[2020-02-06 20:01] VITALS: BP 125/74; PULSE 65; RESP 18; TEMP 36.8; O2SAT 97
[2020-02-06 21:00] VITALS: O2SAT 97
[2020-02-06] MEDS: Atorvastatin Calcium 80 MG Tablet PO (21:00)
[2020-02-06] MEDS: Doxazosin 1 MG Tablet PO (21:00)
[2020-02-06 21:01] VITALS: BP 129/58; PULSE 70
[2020-02-06] MEDS: Mirtazapine 15 MG Tablet PO (21:01)
[2020-02-06] MEDS: MELATONIN 3 MG TABLET 6 MG PO (21:01)
[2020-02-06 22:28] VITALS: BMI 25.6
[2020-02-07] MEDS: Enoxaparin 40 MG/0.4 ML Syringe SC (04:47)
[2020-02-07 05:48] LABS: Absolute Lymphocyte Count 1.57 X10^3/uL (0.83-4.51); Absolute Neutrophil Count 5.9 X10^3/uL (2.0-7.7); Basophil# 0.05 X10^3/uL; Basophil% 0.6 % (0-1); Eosinophils% 2.3 % (0-5); Hematocrit 45.4 % (40-54); Hemoglobin 15.1 g/dL (13.0-16.5); Lymphocyte # 1.57 X10^3/ul (4.0); Mean Corp Hgb Conc 33.3 g/dL (32-36); Mean Corpuscular Hgb 29.8 pg (27.0-32.0); Mean Corpuscular Volume 89.7 fL (80-94); Mean Platelet Vol. 10.6 fl (6.2-12.0); Monocyte# 0.94 X10^3/uL; Monocyte% 10.8 % (0-10); NRBC Flagged by Analyzer 0 % (0-5); Neutrophil # 5.92 X10^3/uL (2.7-7.7); Neutrophil % 67.6 % (47-70); Platelet Count 178 K/mm3 (150-450); RBC Distribution Width CV 12.6 % (11.6-14.6); RBC Distribution Width SD 41.1 fl (35.1-43.9); Red Blood Count 5.06 M/mm3 (4.6-6.2); White Blood Count 8.7 K/mm3 (4.4-11.0)
[2020-02-07 06:24] LABS: ALB/GLOB Ratio 0.6 RATIO (0.9-2.4); AST(SGOT) 38 U/L (15-37); Alanine Aminotransfer ALT/SGPT 57 U/L (16-61); Albumin, Serum 2.6 g/dL (3.2-5.0); Alkaline Phosphatase 72 U/L (45-117); Anion Gap 4 (5-15); BUN 22 mg/dL (7-18); BUN/Creat Ratio 19.5 RATIO (10-20); Calcium,Total 8.8 mg/dL (8.5-10.1); Chloride 103 mmol/L (98-107); Creatinine, Serum 1.13 mg/dL (0.70-1.30); EST Glomerular Filtration Rate 68 mL/min (>60); Est Glom Filt Rate - Afr Amer 83 mL/min (>60); Estimated Creatinine Clearance 62.57 ml/min; Globulin 4.2 g/dL (2.2-4.2); Glucose 104 mg/dL (74-106); Magnesium 2.1 mg/dL (1.6-2.6); Potassium 4.3 mmol/L (3.5-5.1); Protein, Total 6.8 g/dL (6.4-8.2); Sodium Level 137 mmol/L (136-145)
--- NOTE | 2020-02-07 06:57 | NURSING ---
pt was one-on-one with sitter, daughter at bedside.
[2020-02-07] MEDS: Aspirin E.C. 81 MG Tablet PO (07:31)
[2020-02-07 07:32] VITALS: PULSE 69
[2020-02-07] MEDS: Senna/Docusate Sodium 1 Tablet 2 TABLET PO ×2 (07:32→21:11)
[2020-02-07] MEDS: Metoprolol(XL)Succ 50 MG Tablet PO ×2 (07:32→21:17)
[2020-02-07] MEDS: Lisinopril 20 MG Tablet PO ×2 (07:33→21:16)
[2020-02-07 08:13] VITALS: BP 116/83; PULSE 69; RESP 18; TEMP 36.9; O2SAT 93
[2020-02-07 10:46] VITALS: BMI 25.6
--- NOTE | 2020-02-07 12:45 | PCM.PN.BLA ---
Progress Note Addition of Cardura 1 mg to his drug regimen has been effective. The blood pressure at at bedtime last night was 125/74 and this morning the blood pressure is 116/83. He denies lightheadedness. He is maintaining appropriate oxygen saturation on room air He has been afebrile since admission He slept well last night. All lab from today was personally reviewed. CBC shows a hemoglobin of 15.1, white blood cell count of 8.7 and platelets of 178,000. The CMP shows a BUN of 22 and a creatinine of 1.13 which is the best it has been since admission to the rehab unit. His oral intake has increased approximately 1300 cc/day. LFTs are unremarkable. Magnesium is normal at 2.1. CXR last night shows no infiltrates, pleural effusions or PVC. The right hemidiaphragm is elevated but this is not new. He did better with PT today and he seems to have a more + attitude today. Has been on Remeron for 8 nights now. Insomnia resolved with the addition of Melatonin to his drug regimen. No complaints today No apparent distress, alert, pleasant Lungs-few coarse crackles in the right base that are unchanged since yesterday and persist despite several deep breaths. No infiltrates or pulmonary vascular congestion on PA and lateral chest x-ray yesterday Heart-regular rate and rhythm/no gallop Abdomen-soft, nontender, nondistended, bowel sounds present No peripheral edema No rashes, no skin breakdown PT/OT/ST notes were reviewed Impressions 1. Dehydration-improved 2. Hypertension-at goal today with the addition of Cardura 1 mg p.o. at at bedtime to his drug regimen 3. Post stroke debility 4. Depression Continue therapy Continue current drug regimen Behavioral health has been consulted to evaluate His scheduled discharge date is 02/14/2020. Currently I do not feel he is safe to go home and recommend alf however he did do better with physical therapy today and we are going to push him and hopefully he will improved to the point where he can go home with his daughter on the . He is not setting off the bed alarm continuously any longer Inpatient E&M: 79547 Subs Hosp L2
--- NOTE | 2020-02-07 14:25 | BH.NOTE ---
BH: Inpatient Note - Notes Behavioral Health Inpatient Note: 02/07/20 14:[address] Cablalero due to depression and anxiety associated with recent medical event (stroke). Denies any suicidal ideations, plan, or intent. No hx of mental health issues. Pt suffered a stroke and was transferred to rehab after initial stay in ICU. Tearful at times. Notes that he has been having difficulty adjusting to loss of independence and often gets overwhelmed when he thinks about his stroke. Discussed while in PT he was completing an exercise which required that he be on his side on the floor which triggered memory of lying on the floor after his stroke in his house. This triggered overwhelming emotions. Embarrassed about crying spells and feels like a baby. Admits to depression, crying spells, and fear about his future. Provided some education on emotional reactions after medical crisis such as stroke. Normalized his emotions. Receptive to education. Encouraged him to monitor his symptoms and seek help if he feels overwhelmed. Gave referrals to local MH providers.
[2020-02-07 19:44] VITALS: BP 138/70; PULSE 64; RESP 16; TEMP 36.4; O2SAT 97
[2020-02-07] MEDS: Mirtazapine 15 MG Tablet PO (21:11)
[2020-02-07] MEDS: MELATONIN 3 MG TABLET 6 MG PO (21:11)
[2020-02-07] MEDS: Atorvastatin Calcium 80 MG Tablet PO (21:11)
[2020-02-07] MEDS: Doxazosin 1 MG Tablet PO (21:16)
[2020-02-07 21:17] VITALS: BP 139/66; PULSE 76
[2020-02-08 04:24] VITALS: BMI 25.6
[2020-02-08] MEDS: Enoxaparin 40 MG/0.4 ML Syringe SC (06:20)
[2020-02-08] MEDS: Aspirin E.C. 81 MG Tablet PO (07:55)
[2020-02-08 07:56] VITALS: PULSE 67
[2020-02-08] MEDS: Metoprolol(XL)Succ 50 MG Tablet PO ×2 (07:56→20:23)
[2020-02-08] MEDS: Lisinopril 20 MG Tablet PO ×2 (07:56→20:23)
[2020-02-08 07:57] VITALS: BP 117/67; PULSE 67; RESP 16; TEMP 36.8; O2SAT 94
[2020-02-08 14:23] VITALS: BMI 25.6
--- NOTE | 2020-02-08 15:00 | PCM.PN.BLA ---
Progress Note Afebrile VSS-blood pressure is now well controlled with the addition of Cardura 1 mg p.o. nightly to his antihypertensive regimen. Heart rate remains within normal limits. Maintaining appropriate oxygen saturation on RA Oral intake is good Discussed with nursing - no problems that need addressed. He is less impulsive and setting off the alarms less. His dtr did not stay with him last night and he still slept well. He is currently on Melatonin and Remeron at HS. Reviewed the PT/OT/ST notes Medication list reviewed. PT changed his exercises to those that a man is more likely to do at the gym. He has been working out regularly at home and likes to work out. He seemed to appreciate the change. Push ups and lunges, etc. Alert, NAD, sitting in the recliner, not tearful when talking with me. Lungs - few crackles in the right base....no change since previous exam and the CXR showed stable elevation of the right hemidiaphragm with right basilar atelectasis. There is no evidence of infiltrates, increased pulmonary vascular congestion or pleural effusions. 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 More emotional today because it is his birthday......he does not know that his dtr is bringing his grandchildren in for a outside visit Impressions 1. Dehydration-improved 2. Hypertension-at goal with the addition of Cardura 1 mg p.o. at at bedtime to his drug regimen 3. Post stroke debility 4. Depression - affect is still flat but he is sleeping better and keeping better hydrated. Antidepressant effect of the Remeron should be kicking in soon. I think he would decline in a SNF due to isolation and increased depression. I reinforced with Ed that we are going to push him hard in therapy to get him ready for potential DC home with his dtr next week. He will need assistance with medications and financial things. He will need continued PT/OT/ST. Inpatient E&M: [id number] Subs Hosp L2
[2020-02-08 19:24] VITALS: BP 117/71; PULSE 76; RESP 18; TEMP 36.6; O2SAT 94
[2020-02-08 20:23] VITALS: BP 117/71; PULSE 76
[2020-02-08] MEDS: Atorvastatin Calcium 80 MG Tablet PO (20:24)
[2020-02-08] MEDS: Doxazosin 1 MG Tablet PO (20:24)
[2020-02-08] MEDS: MELATONIN 3 MG TABLET 6 MG PO (20:24)
[2020-02-08] MEDS: Mirtazapine 15 MG Tablet PO (20:24)
[2020-02-09 05:00] VITALS: BMI 25.6
[2020-02-09] MEDS: Enoxaparin 40 MG/0.4 ML Syringe SC (06:11)
[2020-02-09 07:21] VITALS: BP 106/63; PULSE 71; RESP 16; TEMP 36.6; O2SAT 95
[2020-02-09 07:34] VITALS: PULSE 71
[2020-02-09] MEDS: Lisinopril 20 MG Tablet PO ×2 (07:34→20:56)
[2020-02-09] MEDS: Aspirin E.C. 81 MG Tablet PO (07:34)
[2020-02-09] MEDS: Metoprolol(XL)Succ 50 MG Tablet PO ×2 (07:34→20:57)
[2020-02-09 14:33] VITALS: BMI 25.6
--- NOTE | 2020-02-09 18:36 | NURSING ---
Patient requiring more cues and redirection in the evening. Daughter here to visit. Patient upset that she will not get the car and that he is driving home. Daughter provided constant cues and 1:1 but patient showed short term memory impairment and forgot what daughter told him. Nursing staff and daughter convinced patient to ambulate in nelson to walk his daughter to the door of the rehab unit and say goodbye and done so. Gait unsteady but mod assist x 1 with cane and ataxic.
[2020-02-09 19:57] VITALS: BP 112/68; PULSE 63; RESP 18; TEMP 36.6; O2SAT 99
[2020-02-09] MEDS: MELATONIN 3 MG TABLET 6 MG PO (20:56)
[2020-02-09 20:57] VITALS: BP 126/77; PULSE 79
[2020-02-09] MEDS: Mirtazapine 15 MG Tablet PO (20:57)
[2020-02-09] MEDS: Doxazosin 1 MG Tablet PO (20:57)
[2020-02-09] MEDS: Atorvastatin Calcium 80 MG Tablet PO (20:57)
[2020-02-10] MEDS: Enoxaparin 40 MG/0.4 ML Syringe SC (06:22)
[2020-02-10 07:27] VITALS: BP 115/69; PULSE 79; RESP 16; TEMP 36.6; O2SAT 96
[2020-02-10 07:46] VITALS: BP 115/69; PULSE 79
[2020-02-10] MEDS: Metoprolol(XL)Succ 50 MG Tablet PO ×2 (07:46→20:23)
[2020-02-10] MEDS: Lisinopril 20 MG Tablet PO ×2 (07:47→20:22)
[2020-02-10] MEDS: Aspirin E.C. 81 MG Tablet PO (07:47)
[2020-02-10 13:52] VITALS: BMI 25.6
[2020-02-10 19:22] VITALS: BP 122/67; PULSE 73; RESP 16; TEMP 36.8; O2SAT 97
[2020-02-10] MEDS: Doxazosin 1 MG Tablet PO (20:22)
[2020-02-10 20:23] VITALS: BP 122/64; PULSE 73
[2020-02-10] MEDS: Atorvastatin Calcium 80 MG Tablet PO (20:23)
[2020-02-10] MEDS: MELATONIN 3 MG TABLET 6 MG PO (20:23)
[2020-02-10] MEDS: Mirtazapine 15 MG Tablet PO (20:23)
[2020-02-10 20:35] VITALS: PULSE 73; RESP 16; O2SAT 97; BMI 25.6
[2020-02-10 20:40] VITALS: BMI 25.6
--- NOTE | 2020-02-11 02:01 | NURSING ---
pt up to the br at this time and returned to bed, pt became tearful feeling that he is not doing well d.t having an accident earlier in the shift and then felt he couldn't make to the toilet on time. pt reports that he is not sleeping well d/t coughing. pt given encouragement and talked with pt at length about recovery. pt less tearful and thanked staff for talking to him.
[2020-02-11] MEDS: Enoxaparin 40 MG/0.4 ML Syringe SC (05:56)
--- NOTE | 2020-02-11 07:05 | NURSING ---
Reviewed and agree with WOODWORKER documentation and charting.
[2020-02-11 07:26] VITALS: BP 123/70; PULSE 71; RESP 17; TEMP 36.6; O2SAT 96
[2020-02-11] MEDS: Aspirin E.C. 81 MG Tablet PO (07:39)
[2020-02-11 07:40] VITALS: PULSE 71
[2020-02-11] MEDS: Metoprolol(XL)Succ 50 MG Tablet PO ×2 (07:40→20:31)
[2020-02-11] MEDS: Lisinopril 20 MG Tablet PO ×2 (07:40→20:32)
[2020-02-11 08:32] VITALS: BMI 25.6
--- NOTE | 2020-02-11 10:54 | CASEMGMT ---
Addendum entered by Fely Chan 02/11/20 14:19: Spoke with daughter to provide update from Team meeting. Discussed discharge plan. Dtr expressed concerns about to manage pt 17/01 at home with work. Provided support. Discussed private duty aides, video monitor system, making signs around the house for the pt's visual reminders to do or not to do. Children and siblings can assist. She is concerned about pt regressing if he transfers to a SNF. Expressive understanding. Discussed outpatient therapy vs skilled HHC. Dtr requested outpatient in [facility]. She chose [facility] from the SNF list previous provided to her. Referral made for OT/ST. [place] [facility] [place] [facility] and [facility] for cane. No other needs. Plan: DC to daughter's house 02/13 with [facility] Outpatient OT/ST, Cane, BSC. Original Note: Social Work IDT met with patient for Team Meeting. Dtr to call for update after work. Discussed patient's progress in therapy. Pt is SBA for transfers, ambulating with cane CGA on multiple surfaces longer distances. Pt is gaining better control with hands but still coordination issues. Pt is SBA to CGA for all ADLS - someone needs to be there for safety and balance. ST continues to work on memory, attention, insight, safety awareness, recall. Sleep is improving and does not require staff or dtr assist. Pt's impulsivity is improving. DC is 02/13. Will finalize plans with dtr. Will continue to follow. PRASANNA Saunders BULK FLUIDS HANDLER
--- NOTE | 2020-02-11 13:03 | PCM.PN.BLA ---
Progress Note Seen on TEAM rounds today. His dtr Vi is working today and could not partipate but, SW will update her later today. Afebrile VSS-blood pressure is in good control now and at goal, less than 130/80. He denies lightheadedness. Maintaining appropriate oxygen saturation on RA Oral intake is overall improved. Discussed with nursing - He complained of SOB last night to the nurses and they have been putting oxygen on him when he has coughing spells. the coughing is worse when he lies down....he states he has a tickle in the back of his throat. He is also having coughing paroxysms during the day. CXR recently showed chronic elevation of the right hemidiaphragm but no infiltrates or PVC or effusions. Recent echocardiogram on 01/23/2020 showed moderate concentric left ventricular hypertrophy with stage I diastolic dysfunction. The ejection fraction was 65%. Reviewed the PT/OT/ST notes Medication list reviewed. He has no hx of GALA. Has never had a sleep study. He was smoking at the time of the CVA and has at least a 45-50 pack/yr hx. He also had second exposure as a child.......father smoked 3 PPD. Has never had PFT's. PT checked a pulse ox with ambulation today and the saturation dropped to 84% at one point. Denies CP, sore throat, nasal congestion. Although he is depressed he denies any suicidal or homicidal ideation. Alert, flat affect, not tearful. Tells me he will be going home with dtr Vi at [place]. He was sleeping when we entered the room (despite the fire alarm going off) and when I went back to visit again later in the day he was also sleeping. He was able to do all his ADL's with OT this morning and then had PT without appearing to be fatigued or sleepy though. Lungs - persistent crackles in the R base........may have some scarring as this is persistent. He is not tachypneic and he has no conversational dyspnea HRRR Abd - soft, NT, normal BS's no edema, no clubbing, no cyanosis Impressions 1. Dehydration-improved 2. Hypertension-at goal with the addition of Cardura 1 mg p.o. at at bedtime to his drug regimen. No lightheadedness 3. Post stroke debility 4. Depression - affect is still flat but he is sleeping better and keeping better hydrated. Antidepressant effect of the Remeron should be kicking in soon. I think it will improve when he is discharged and at home with his dtr and the grandchild 5. VÁZQUEZ with pulse dropping to 84% on RA 6. 45-50 pack/yr hx of smoking and was still smoking at the time of the CVA 7. chronic cough.......worse when lying down. Post nasal drainage? Overnight trending pulse ox O2 per protocol......1-2 LPM with exertion Will need referred to pulmonary at [place] for PFT's. He is not wheezing so I do not see the need for bronchodilators at this time Try Atrovent nasal spray for suspected PND.......if still with a persistent cough will consider a pulmonary consult while in house so he can be set up for PFT's by pulmonary MANAGER OF PROGRAM and then see the doc as an OP after testing.
[2020-02-11] MEDS: Ipratropium Bromide 0.06% NASAL SPRAY 2 SPRAY NASAL ×2 (14:06→20:30)
[2020-02-11 20:00] VITALS: BP 132/72; PULSE 72; RESP 18; TEMP 36.7; O2SAT 94; O2SAT 97; BMI 25.6
[2020-02-11] MEDS: Menthol/Lanolin/Calamine/Znox 113 GM Tube 1 APPLIC TOPICAL (20:30)
[2020-02-11 20:31] VITALS: BP 132/72; PULSE 72
[2020-02-11] MEDS: Atorvastatin Calcium 80 MG Tablet PO (20:31)
[2020-02-11] MEDS: MELATONIN 3 MG TABLET 6 MG PO (20:31)
[2020-02-11] MEDS: Mirtazapine 15 MG Tablet PO (20:32)
[2020-02-11] MEDS: Doxazosin 1 MG Tablet PO (20:33)
[2020-02-11 21:18] VITALS: PULSE 75; O2SAT 94
--- NOTE | 2020-02-11 21:47 | NURSING ---
overnight SPO2 applied at 2100 per respiratory
--- NOTE | 2020-02-12 04:18 | NURSING ---
reviewed and agree with BOATSWAINS MATE assessment and functionals.
[2020-02-12] MEDS: Ipratropium Bromide 0.06% NASAL SPRAY 2 SPRAY NASAL ×3 (05:58→20:11)
[2020-02-12] MEDS: Enoxaparin 40 MG/0.4 ML Syringe SC (05:58)
[2020-02-12 07:18] VITALS: PULSE 72; O2SAT 97
[2020-02-12] MEDS: Aspirin E.C. 81 MG Tablet PO (07:34)
[2020-02-12 07:35] VITALS: BP 118/75; PULSE 71
[2020-02-12] MEDS: Metoprolol(XL)Succ 50 MG Tablet PO ×2 (07:35→20:15)
[2020-02-12] MEDS: Lisinopril 20 MG Tablet PO ×2 (07:36→20:22)
[2020-02-12] MEDS: Menthol/Lanolin/Calamine/Znox 113 GM Tube 1 APPLIC TOPICAL ×2 (07:37→20:16)
[2020-02-12 08:00] VITALS: BP 118/75; PULSE 71; RESP 16; TEMP 36.8; O2SAT 94
[2020-02-12 08:21] VITALS: BMI 25.6
[2020-02-12 19:30] VITALS: BP 116/66; PULSE 98; RESP 17; TEMP 36.6; O2SAT 97; BMI 25.6
[2020-02-12] MEDS: Doxazosin 1 MG Tablet PO (20:14)
[2020-02-12] MEDS: Atorvastatin Calcium 80 MG Tablet PO (20:14)
[2020-02-12 20:15] VITALS: BP 116/66; PULSE 98
[2020-02-12] MEDS: Mirtazapine 15 MG Tablet PO (20:15)
[2020-02-12] MEDS: MELATONIN 3 MG TABLET 6 MG PO (20:15)
--- NOTE | 2020-02-13 00:38 | NURSING ---
an increase of coughing noted this hs over last evening, pt has O2 on at 2l and currently SPO2 is at 98%. pt is frustrated over cough and reports that he is unable to sleep well. staff offered fluids, making room cooler and pt declined . staff did raise hob to a 45 degree angle, pt denied sob. pt cough has change from a dry hacking type to a moist full cough that is non-productive. pt also noted to have nasal congestion at the beginning of the shift. post lung files are noted to have fine crackles in bases and mid alvarenga and diminished upper. pt used IS appropriately when given . pt to bed earlier than usual and fell almost immediately asleep.
--- NOTE | 2020-02-13 02:36 | NURSING ---
0100 pt awake and getting oob wanting to go to the br. pt voided and went to the recliner, pt irritated d/t coughing and able to sleep. stated to this staff member if he could go home to today. pt encouraged that the extra therapy would benefit him before he was discharged. alarms in place in recliner. pt offered a snack or something to drink and declined, stating he wants to go home;pt remains restless 0200 pt getting out of the chair and states he wants to use the toilet, pt ambulated with 2 assists d/t gait is unsteady at this time. pt returned to chair and states that he wants to get dressed, staff offers pt to take a shower and pt declined stating that he just wants to get dressed and brush his teeth. staff assisted pt in getting clothes and ambulating to the br to brush teeth. pt returned to recliner and is noted to be less restless at this time, and less irritated. pt made aware of time of day and invited this staff worker to go home and get some sleep. staff replied that i would be with him all night, to help if needed it. SPO2 taken and was 93% at this time on room air. pt offered food and fluids and pt declined stating he was fine. 0250 pt remains in recliner with alarms intact watching tv.
--- NOTE | 2020-02-13 03:22 | NURSING ---
pt remains restless and was ambulated in the nelson, continues to state that he wants to go home. pt encouraged to call daughter at 0500 and pt unaware that it was 0300 in the am. pt stated that staff keeps telling him its different times of the day every 20min. pt currently in recliner watching tv with alarms intact
--- NOTE | 2020-02-13 03:46 | NURSING ---
chair alarms going off and pt was found standing against the wall, pt reports that he was trying to go to the br. staff assisted pt to the br and gait was slightly unsteady. staff tried to encourage pt to lay down and pt became agitated and stated no he was sitting in the chair. pt encouraged to call his daughter and pt did so. pt stated that his daughter would call and then come in this morning. staff currently sitting with pt for safety
--- NOTE | 2020-02-13 05:29 | NURSING ---
[id number] pt remains in recliner and talking with staff, is cooperative and pleasant, staff remains with pt for safety
[2020-02-13] MEDS: Ipratropium Bromide 0.06% NASAL SPRAY 2 SPRAY NASAL ×3 (05:52→21:33)
[2020-02-13] MEDS: Enoxaparin 40 MG/0.4 ML Syringe SC (05:53)
--- NOTE | 2020-02-13 06:24 | NURSING ---
pt dosing off and on in the recliner, declined to go to bed when offered. staff remains with pt for safety
[2020-02-13] MEDS: Aspirin E.C. 81 MG Tablet PO (07:50)
[2020-02-13 07:51] VITALS: PULSE 64
[2020-02-13] MEDS: Lisinopril 20 MG Tablet PO (07:51)
[2020-02-13] MEDS: Metoprolol(XL)Succ 50 MG Tablet PO ×2 (07:51→21:31)
[2020-02-13] MEDS: Menthol/Lanolin/Calamine/Znox 113 GM Tube 1 APPLIC TOPICAL ×2 (07:52→21:34)
[2020-02-13 08:07] VITALS: BP 117/59; PULSE 84; RESP 18; TEMP 36.7; O2SAT 95
--- NOTE | 2020-02-13 08:39 | CT_ITS ---
STUDY: CT CHEST WITHOUT CONTRAST REASON FOR EXAM: Male, 70 years old. 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 Individualized dose optimization techniques were used for this CT. COMPARISON: PA and lateral chest 02/06/2020 FINDINGS: There is mild interstitial thickening in the lower lobes greater on the right in association with thickening of the bronchial thompson. No focal infiltration. There is a 2.4 mm nodule in the right middle lobe of indeterminate significance. There is no demonstrated pleural abnormality. The heart is normal in size and there is coronary artery calcification. Normal mediastinum. Normal hilar regions. Normal unenhanced pulmonary arteries. Atherosclerotic changes of the aorta without evidence for aneurysm. Dorsal spine demonstrates degenerative changes. There is no demonstrated abnormality of the visualized upper abdomen. CT/Chest without Contrast IMPRESSION: Mild chronic interstitial changes in the lower lobes greater on the right and associated thickening of the bronchial thompson.. Tiny nodule in the right middle lobe approximately 2.4 mm likely benign however would recommend follow-up studies utilizing FLEISCHNER Society criteria. Electronically Signed: Jas Santa MD at 22:41 EDT , Service support ,
--- NOTE | 2020-02-13 08:56 | PN_ITS ---
Progress Note Afebrile VSS-blood pressure is well controlled. Maintaining appropriate oxygen saturation on RA Oral intake is fair. It has dropped off somewhat the past 3 days. Discussed with nursing - Talked with the night nurse this morning. He went to bed early last night and was confused......more than recently. He got up at 2 AM and he was agitated and wanted to get dressed and get in the recliner. Nursing got him dressed and he remained in the recliner the rest of the night. He said that he was going home in the morning. This morning he is apologetic for his agitation last night. He is worried about his family being able to be able to set up the oxygen at home and being able to manage his care. He is scheduled to go home with his dtr Stephani on 02/13. He is standby assist for bed mobility and contact-guard assist/standby assist to come to stand from various surfaces with improved patient recall of pushing from surfaces. On 02/12/2020 he ambulated 165 to 200 feet with a straight cane on various surfaces at contact- guard assist. He still needs a light hand for safety. Continues to be impulsive and got up yesterday without an assistive device and walked over to the therapist to help her clean. He completed the tug test on 02/11/2020 with a straight cane in 12.14 seconds with contact-guard assist. He did 13 stands in 30 seconds. He is able to groom himself with contact-guard assist. He needs minimal assistance with bathing and he is supervision/set up with upper body dressing. He is contact-guard assist with lower body dressing, toileting, toilet transfer and tub/shower transfer. Reviewed the PT/OT/ST notes. Per ST he did well yesterday but did not do well today with memory testing.....20 point drop. On 02/12/2020 he ambulated 165 to 200 feet with a straight cane on various surfaces at contact-guard assist. He still needs a light hand for safety. Continues to be impulsive and got up yesterday without an assistive device and walked over to the therapist to help her clean. He completed the tug test on 02/11/2020 with a straight cane in 12.14 seconds with contact-guard assist. He did 13 stands in 30 seconds. He is able to groom himself with contact-guard assist. He needs minimal assistance with bathing and he is supervision/set up with upper body dressing. He is contact- guard assist with lower body dressing, toileting, toilet transfer and tub/shower transfer. Medication list reviewed. His only complaint is dry coughing paroxysms. He had a chronic cough at presentation to the rehab unit but it is much worse now. He denies chest pain, calf pain, hemoptysis. He is not tachycardic and has no history of pulmonary emboli. He is on DVT prophylaxis with enoxaparin and he has no swelling of his legs/ankles. He has a [id number]-year smoking history and was smoking at the time of his stroke. He has never had pulmonary function tests or a formal sleep study. He does tell me that in the remote past he had a railroad tie fall on his chest and fractured several ribs. He had a chest tube on the right and was in the hospital for 3 weeks. He tells me his breathing was harder after that. The right hemidiaphragm is chronically elevated. I reviewed the overnight trending pulse ox which is markedly abnormal. Pulse ox on room air was less than 90% almost 2 hours of the time and less than 80% a little over 10 minutes. He is now on oxygen 2 L/min while sleeping and 2 L/min with exertion. Alert, oriented to person, place, day, date, month and year. MM are dry and there are no mucosal lesions and he denies odynophagia Crackles in both bases, no wheezing, fair air exchange, no rhonchi, good effort. Not tachypneic, no conversational dyspnea, no accessory muscle use. Abdomen-soft, nontender, nondistended, normal bowel sounds No ankle edema, no calf tenderness, negative Homans, negative Gustabo He looks tired, affect is flat, he is worried about going home and have his family have to take care of him. Impressions 1. Dehydration -oral intake has dropped off the past 3 days and his mucous membranes are dry. Pulse rate is up a little but is still within normal limits 2. Hypertension-at goal with the addition of Cardura 1 mg p.o. at bedtime to his drug regimen. No lightheadedness 3. Post stroke debility 4. Depression -affect is flat still and he did not sleep well last night. He has anxiety about going home and his ability of his family to care for him. 5. VÁZQUEZ with pulse dropping to 84% on RA 6. 45-50 pack/yr hx of smoking and was still smoking at the time of the CVA 7. chronic cough.......worse when lying down. Post nasal drainage? Not improved with Atrovent nasal spray. Cough is dry.....possibly due to the DEVAN.....had a chronic cough at admission but it has definitely gotten worse. 8. Sleep disordered breathing with markedly abnormal overnight trending pulse ox on room air. He now has oxygen with sleep and with exertion. Pulse ox sitting in the recliner is within normal limits. 9. Suspected COPD I suspect that the decline in performance on memory testing today is combined effects of sleep disordered breathing, hypoxia, sleep deprivation, depression and recent stroke. Start Serevent DC Lisinopril Start Procardia XL [address] of the Lisinopril CT scan of the chest.....abnormal CXR with crackles in both bases and elevated R hemidiaphragm Consult Dr. Ingram from pulmonary re: Abnormal overnight trending pulse ox and hypoxemia. CBC with differential, BMP today. Will need scheduled for a formal sleep study at discharge and will follow up with pulmonary medicine for PFTs. STROKE Vital Signs/Narrative: Vital Signs Temp Pulse Resp BP Pulse Ox 02/13/20 08:07 98.1 F 84 18 117/59 L 95 02/13/20 07:51 64 Inpatient E&M: 38072 Subs Hosp L2
[2020-02-13 09:13] LABS: Absolute Lymphocyte Count 1.26 X10^3/uL (0.83-4.51); Absolute Neutrophil Count 5.7 X10^3/uL (2.0-7.7); Basophil# 0.05 X10^3/uL; Basophil% 0.6 % (0-1); Eosinophil# 0.36 X10^3/uL; Eosinophils% 4.5 % (0-5); Hematocrit 44.7 % (40-54); Hemoglobin 14.7 g/dL (13.0-16.5); Lymphocyte # 1.26 X10^3/ul (4.0); Lymphocyte % 15.7 % (19-41); Mean Corp Hgb Conc 32.9 g/dL (32-36); Mean Corpuscular Hgb 29.8 pg (27.0-32.0); Mean Corpuscular Volume 90.5 fL (80-94); Mean Platelet Vol. 10.1 fl (6.2-12.0); Monocyte% 7.5 % (0-10); NRBC Flagged by Analyzer 0 % (0-5); Platelet Count 251 K/mm3 (150-450); RBC Distribution Width CV 12.6 % (11.6-14.6); RBC Distribution Width SD 41.5 fl (35.1-43.9); Red Blood Count 4.94 M/mm3 (4.6-6.2)
[2020-02-13 09:25] LABS: Anion Gap 4 (5-15); BUN 26 mg/dL (7-18); BUN/Creat Ratio 19.3 RATIO (10-20); Calcium,Total 9.2 mg/dL (8.5-10.1); Chloride 105 mmol/L (98-107); Creatinine, Serum 1.35 mg/dL (0.70-1.30); EST Glomerular Filtration Rate 56 mL/min (>60); Est Glom Filt Rate - Afr Amer 67 mL/min (>60); Estimated Creatinine Clearance 51.64 ml/min; Glucose 138 mg/dL (74-106); Potassium 4.2 mmol/L (3.5-5.1); Sodium Level 141 mmol/L (136-145)
--- NOTE | 2020-02-13 14:00 | NURSING ---
While ambulating with therapists, Spo2 dropped to 74% RA. Therapists provided rest break and Spo2 went to 96% RA. SOB noted with exertion.
--- NOTE | 2020-02-13 14:29 | CASEMGMT ---
Social Work Patient qualifies for O2 as he destats at night and upon exertion. Script sent to [facility]. Called to confirm delivery to pt's daughter house, as well as [facility]. PRASANNA SaundersW
[2020-02-13 17:00] VITALS: BMI 25.6
[2020-02-13 17:26] LABS: Urine Sodium 45 mmol/L (Not Establ.)
[2020-02-13 19:08] VITALS: BP 115/66; PULSE 85; RESP 16; TEMP 36.7; O2SAT 95
[2020-02-13] MEDS: NIFEdipine 60 MG Tablet PO (20:07)
[2020-02-13 21:31] VITALS: BP 115/66; PULSE 85
[2020-02-13] MEDS: Mirtazapine 15 MG Tablet PO (21:32)
[2020-02-13] MEDS: Atorvastatin Calcium 80 MG Tablet PO (21:33)
[2020-02-13] MEDS: MELATONIN 3 MG TABLET 6 MG PO (21:33)
[2020-02-13] MEDS: Doxazosin 1 MG Tablet PO (21:33)
[2020-02-14 05:00] VITALS: BMI 25.6
--- NOTE | 2020-02-14 06:30 | PCM.DC ---
- Discharge Diagnoses Current Active Problems: Current Active and Chronic Problems Left-sided weakness (Acute) Due to recent R MCA ischemic CVA. 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 FH: colon cancer (Chronic) in his mother Dehydration (Acute) LVH (left ventricular hypertrophy) (Chronic) moderate Diastolic dysfunction (Chronic) stage 1 You will use the following diet at home:: Cardiac - low fat and low salt Your food should be the consistency of: Regular Your liquids should be the consistency of: Regular/Thin Discharge Activity: May Not Drive - for 6 months and must have a driving education program prior to driving......there is such a program at [facility] [place], - - Use the cane to walk and to help maintain your balance. Weight Bearing Status: Full weight bearing Additional Activity Instructions:: Do the exercises that were given to you by the therapists twice a day at least 6 days a week. Walking is great exercise.......take the grandkids with you! Exercise is easier to do daily when you make it fun. Call your doctor if you observe: Fever of 101 or Higher, Inability to urinate, Inability to have a bowel movement, Shortness of breath, Dizziness, Fainting spells, Swelling in the ankles, Chest pain, Increased palpitations (irregular heartbeat), Calf discomfort, - - Go the ED or call 911 immediately if sudden onset: 1. facial droop 2. slurred speech or inability to get words out 3. weakness or numbness on 1 side of the face, arm or leg. 4. vertigo or room spinning 5. loss of vision or trouble seeing in one eye 6. Confusion 7. Trouble walking or maintaining balance and trouble with coordination 8. Sudden severe headache with no known cause Instructions: What Are Snoring and Sleep Apnea?, Continuous Positive Air Pressure (CPAP), Visiting a Sleep Clinic, Effects of a Stroke on the Brain and Body, Mood Swings and Depression After a Stroke, Preparing Your Home After Stroke, Stroke: Resources and Support, Understanding the Link Between High Blood Pressure and Stroke, For Caregivers: Self-Care After Stroke Additional Instructions: 1. Your memory book is a lifeline. Put it somewhere where you will see it every morning. Read your memory book every morning while you are drinking your coffee or eating your breakfast and then make a plan for what you are going to do that day and write it down. Look at the list frequently during the day to remind yourself what you wanted to accomplish that day. 2. Keep a list of frequently used phone numbers and numbers you would call if there was an amergency next to the phone so you know where to look. It is also good to keep that information in your memory book. Add things to your memory book that are important for you to remember. Keep a calendar with your memory book and write down all you scheduled appts, sporting events for the [employer], etc. Look at the calendar every day to know if you have any place you need to be that day. 3. You likely have sleep apnea. When you have sleep apnea you quit breathing and the oxygen saturation in the blood drops. You do not rest when this happens and the symptoms of sleep apnea include depression, memory difficulties, chronic fatigue, restless leg syndrome, addictions. I think your memory and depression will improve with treatment for sleep apnea. You will first need to have a sleep study. Then you will follow up with Dr. Ingram to discuss the results and get you treated. 4. You MUST take better care of yourself. Regular follow ups with your new PCP, Dr. Dwayne Flores, are very important to keep the BP and the cholesterol controlled. She is awesome. She will sit and talk to you face to face and make good eye contact. She is a very good heavy equipment rental manager and she and I have basically the same style of patient care. I know that you will be well cared for. 5. I am going to give you a prescription for a nicotine patch to get filled if you start to crave cigarettes. There is a smoking cessation program run by the respiratory therapists at the hospital is youy are having cravings. All you have to do is call the hospital at [phone] and ask the drill press operator numerical control to be connected to the smoking cessation coordinator. 6. The CT scan of the chest showed scarring in the bases of your lungs, the right is worse than the left. There is also a lot odf thickening of the wall of some of the airways in the bases of the lungs. You have a very small nodule in the right middle lobe that measures [address] Ingram will want to follow this going forward and may want to get another CT scan in 3-6 months. I think you have COPD so it is a great thing that you have quit smoking. 7. I am happy to have met you and you have made good progress in therapy. I think going home with Stephani is a great idea and I think your mood will improve. Keep challenging your mind........read the newspaper every day, play cards and games with the [employer], do anagrams and cross word puzzles, read magazines....challenge yourself. The more stimulation you give your brain the better it will function. My office number is [phone]. My personal cell number is [phone]. The number for the rehab unit is [phone]. Call if you have any questions or just to let me know how you are doing. TAke care Ed........this was a wake up call and you are going to recover from this. KEEP THOSE DOCTOR APPTS FRIEND. Allergies/Adverse Reactions: Allergies No Known Allergies Allergy (Verified 01/22/20 20:47) Medications to take at Discharge Aspirin E.C. [Ecotrin] 81 mg PO DAILY@0800 01/25/20 Atorvastatin Calcium [Lipitor] 80 mg PO QHS #30 tab 02/14/20 Doxazosin Mesylate [Cardura] 1 mg PO QHS #30 tab 02/14/20 Guaifenesin Dm [Robitussin Dm] 10 ml PO Q6H PRN PRN udc 02/14/20 Melatonin 6 mg PO QHS tablet 02/14/20 Metoprolol(XL)Succ [Toprol Xl (Beta Yasmin)] 50 mg PO BID #60 tab 02/14/20 Mirtazapine [Remeron] 30 mg PO QHS #30 tab 02/14/20 NIFEdipine [Procardia Xl] 60 mg PO DAILY@1900 #30 tab 02/14/20 The following prescriptions were given: Doxazosin Mesylate [Cardura] 1 mg PO QHS #30 tab Transmission Status: Pending to [facility] Atorvastatin Calcium [Lipitor] 80 mg PO QHS #30 tab Transmission Status: Pending to [facility] NIFEdipine [Procardia Xl] 60 mg PO DAILY@1900 #30 tab Transmission Status: Pending to [facility] Mirtazapine [Remeron] 30 mg PO QHS #30 tab Transmission Status: Pending to [facility] Metoprolol(XL)Succ [Toprol Xl (Beta Yasmin)] 50 mg PO BID #60 tab Transmission Status: Pending to [facility] Primary Care Physician: Care Physician,No Primary [Primary Care Provider] - Test Results: Test results from this visit will be discussed in further detail at your follow-up appointment, if applicable. Please Follow Up With: Mohamud Flores MD Please Follow Up With: Maru Yip NP Please Follow Up With: Sleep Study Please Follow Up With: Ry Gilbret MD Proposed Discharge Date: 02/14/20
[2020-02-14] MEDS: Ipratropium Bromide 0.06% NASAL SPRAY 2 SPRAY NASAL (07:02)
[2020-02-14] MEDS: Enoxaparin 40 MG/0.4 ML Syringe SC (07:02)
[2020-02-14 07:31] VITALS: BP 90/61; PULSE 74; RESP 16; TEMP 36.7; O2SAT 93
[2020-02-14] MEDS: Aspirin E.C. 81 MG Tablet PO (07:33)
[2020-02-14] MEDS: Menthol/Lanolin/Calamine/Znox 113 GM Tube 1 APPLIC TOPICAL (07:38)
[2020-02-14 07:39] VITALS: BP 93/57; PULSE 84
[2020-02-14 08:17] VITALS: BMI 25.6
--- NOTE | 2020-02-14 08:24 | PCM.DC.SUM ---
Discharge Date and Diagnosis Date of Admission: 01/25/20 Date of Discharge: 02/14/20 - Primary Discharge Diagnosis Acute Problems: Active Problems Left-sided weakness and cognitive dysfunction (Acute) Due to recent R MCA ischemic CVA. 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 FH: colon cancer (Chronic) in his mother LVH (left ventricular hypertrophy) (Chronic) - moderate Diastolic dysfunction (Chronic) - stage 1 Chronic cough Hospital Course and Treatment Imaging Results: Clinical Impression(s) from Imaging Studies Chest X-Ray 02/06/20 17:45 IMPRESSION: Stable elevation of the right hemidiaphragm with right basilar atelectasis. No acute thoracic pathology. Electronically Signed: Gordo Hoyt at 18:03 EDT Tel , Service support , Chest CT 02/13/20 08:39 IMPRESSION: Mild chronic interstitial changes in the lower lobes greater on the right and associated thickening of the bronchial thompson.. Tiny nodule in the right middle lobe approximately 2.4 mm likely benign however would recommend follow-up studies utilizing FLEISCHNER Society criteria. Electronically Signed: Jas Santa MD at 22:41 EDT , Service support , Laboratory Last Values WBC 8.0 K/mm3 (4.4-11.0) 02/13/20 09:06 RBC 4.94 M/mm3 (4.6-6.2) 02/13/20 09:06 Hgb 14.7 g/dL (13.0-16.5) 02/13/20 09:06 Hct 44.7 % (40-54) 02/13/20 09:06 MCV 90.5 fL (80-94) 02/13/20 09:06 MCH 29.8 pg (27.0-32.0) 02/13/20 09:06 MCHC 32.9 g/dL (32-36) 02/13/20 09:06 RDW Std Deviation 41.5 fl (35.1-43.9) 02/13/20 09:06 RDW Coeff of Deanne 12.6 % (11.6-14.6) 02/13/20 09:06 Plt Count 251 K/mm3 (150-450) 02/13/20 09:06 MPV 10.1 fl (6.2-12.0) 02/13/20 09:06 Immature Gran % (Auto) 0.700 % (0.0-0.9) 02/13/20 09:06 Neut % (Auto) 71.0 % (47-70) H 02/13/20 09:06 Lymph % (Auto) 15.7 % (19-41) L 02/13/20 09:06 [place] % (Auto) 7.5 % (0-10) 02/13/20 09:06 Eos % (Auto) 4.5 % (0-5) 02/13/20 09:06 Baso % (Auto) 0.6 % (0-1) 02/13/20 09:06 Absolute Neuts (auto) 5.7 X10^3/uL (2.0-7.7) 02/13/20 09:06 Absolute Lymphs (auto) 1.26 X10^3/uL (0.83-4.51) 02/13/20 09:06 Nucleated RBC % 0 % (0-5) 02/13/20 09:06 Sodium 141 mmol/L (136-145) 02/13/20 09:06 Potassium 4.2 mmol/L (3.5-5.1) 02/13/20 09:06 Chloride 105 mmol/L (98-107) 02/13/20 09:06 Carbon Dioxide 32.0 mmol/L (21.0-32.0) 02/13/20 09:06 Anion Gap 4 (5-15) L 02/13/20 09:06 BUN 26 mg/dL (7-18) H 02/13/20 09:06 Creatinine 1.35 mg/dL (0.70-1.30) H 02/13/20 09:06 Estim Creat Clear Calc 51.64 ml/min 02/13/20 09:06 Est GFR (MDRD) Af Amer 67 mL/min (>60) 02/13/20 09:06 Est GFR (MDRD) Non-Af 56 mL/min (>60) L 02/13/20 09:06 BUN/Creatinine Ratio 19.3 RATIO (10-20) 02/13/20 09:06 Glucose 138 mg/dL (74-106) H 02/13/20 09:06 Calcium 9.2 mg/dL (8.5-10.1) 02/13/20 09:06 Magnesium 2.1 mg/dL (1.6-2.6) 02/07/20 05:30 Total Bilirubin 1.00 mg/dL (0.20-1.00) 02/07/20 05:30 AST 38 U/L (15-37) H 02/07/20 05:30 ALT 57 U/L (16-61) 02/07/20 05:30 Alkaline Phosphatase 72 U/L (45-117) 02/07/20 05:30 Total Protein 6.8 g/dL (6.4-8.2) 02/07/20 05:30 Albumin 2.6 g/dL (3.2-5.0) L 02/07/20 05:30 Globulin 4.2 g/dL (2.2-4.2) 02/07/20 05:30 Albumin/Globulin Ratio 0.6 RATIO (0.9-2.4) L 02/07/20 05:30 TSH 4.82 uIU/mL (0.358-3.74) H 01/28/20 05:40 Ur Random Sodium 45 mmol/L (Not Establ.) 02/13/20 16:00 Urine Creatinine 172.00 mg/dL (NO RANGE EST.) 02/13/20 16:00 Dr. Ramy Ingram - pulmonary medicine Operations: None Procedures: - - overnight trending pulse ox - abnormal Summary of Care Provided: Calvin Finley is a 69 YO male with a PMH of untreated HTN (diagnosed 6 years prior to CVA but he declined to treat) , Long standing tobacco dependence and social ETOH use who presented to the ED at [facility] on 01/22/20 c/o sudden onset left side weakness and slurred speech per his family. NIH at presentation to the emergency department was 4. He was emergently taken to CT scan which was unremarkable and revealed no evidence of acute infarction. CTA of the head and neck showed no significant areas of stenosis. Consult was obtained with [facility] tele-neurology and TPA was recommended. Prior to TPA his blood pressure was controlled with nicardipine. Post TPA he was transferred to the intensive care unit. Follow-up MRI showed no hemorrhage. There was a right posterior internal capsule lacunar ischemic CVA present. He had persistent left side weakness (arm greater than leg), short term memory loss and significant cognitive dysfunction. Telemetry while in the ICU showed no AF. A TTE showed moderate LVH and stage 1 diastolic dysfunction with a normal EF. The bubble contrast was negative for R to L shunt. Lipid panel showed a LDL of 132 and a low HDL. He was started on ASA while in the ICU and also started on Losartan for uncontrolled HTN. Due to persistent left side weakness and significant cognitive dysfunction the decision was made to transfer to inpt rehab. Ed was admitted to the inpatient acute rehab floor on 01/25/2020 for greater than 3 hours of therapy daily to restore him at or near his prior level of function. He is and lives in a motor home alone. He has 4 steps with 1 handrail to enter his home. He was independent with ADL's, mobility and driving prior to hospitalization. Lab work at presentation to the rehab unit showed a hemoglobin of 17.3 and a BUN of 25 with a creatinine of 1.29. Creatinine has fluctuated with his good intake and at 1 point increased to 1.41 and at that time he was given intravenous normal saline. 1 day prior to discharge electrolytes were within normal limits and the BUN was 22 with a creatinine of 1.13 which is stable. He has nocturia and some hesitancy but post void residuals were all < 100. The hemoglobin was 15.1. Ed was very impulsive at admission and depressed with emotional lability. He was agitated at night and not sleeping. At home he takes Melatonin 6 mg for sleep. He was started on [id number] mg but, he was still not sleeping well and we added Melatonin. His dtr slept in his room a few nights and he started sleeping much better. His oral intake waxed and waned but did improve. He lost about 6 lbs while in rehab and the weather observer started him on Ensure. BP was uncontrolled at the time of admission to the inpt unit and antihypertensives were adjusted to achieve a BP < 130/80 on Lisinopril 20 mg BID, Metoprolol XL 50 mg BID and Cardura 1 mg at HS. Unfortunately he developed severe dry cough and the Lisinopril was discontinued. The cough improved....back to his baseline chronic smokers cough in the AM. Procardia XL was started in place of Lisinopril. Blood pressure on the morning of discharge was 93/57 and he denied any lightheadedness. He had already received Lisinopril 20mg in the AM on 02/13/20 and the Procardia was started at 8 PM in the evening on 02/13/20. When he came to the rehab unit cardiology had placed an order for a 30 day event monitor prior to DC to the rehab unit and he is going to follow up with Dr. Gilbert following removal and interpretation of the results of the 30 day event monitor. He had no palpitations while in rehab and when I examined him he was always in NSR. Ed had an overnight trending pulse ox that was significantly abnormal with almost 2 hours with pulse ox between 80-89% and 10.5 minutes Less than 80%. He was placed on oxygen supplementation any time he is sleeping. A pulse ox on RA with ambulation 1 day prior to DC was 74%. He was prescribed Oxygen for any exertion. Home O2 was arranged by the prior to DC. A sleep study was arranged for 02/29/20. He was seen in consultation by Dr. Maynard and he recommended follow up in the pulmonary clinic with [facility] to schedule PFT's and then once testing is complete follow up Dr. Maynard in the office. I think treating the hypoxia and suspected sleep apnea is going to be instrumental in recovering cognitive function and this was related to Ed and Stephani. Ed was discharged on 02/14/20 on medications listed elsewhere. He has an appt to follow up with his new PCP, Dr. Flores, the first week in February. He will also follow up with Neurology, Dr. Maynard and Dr. Gilbert. I recommended that he follow up with a psychotherapist in addition to taking an antidepressant going forward. Alert, oriented to person, place, day of the week, month and year. Looks tired. Mucous membranes are dry. No mucosal lesions Encouraged him to increase his fluid intake. Lungs-coarse crackles that persist despite several deep breaths in the bases of both lungs. No wheezing. Not tachypneic, no conversational dyspnea and no accessory muscle use. Heart-regular rate and rhythm, no MM and no gallop or rub Abdomen-soft, nontender, nondistended, normal bowel sounds, no abdominal bruits, no guarding with palpation, bladder not distended No peripheral edema, no calf tenderness, no cyanosis Flat affect Persistent left side weakness, arm greater than leg. Cranial nerves II through XII are grossly intact. He is ambulating with a straight cane. No visual field cuts. No neglect. Not ataxic. This note was generated with [employer] dictation software. It may contain incorrect words, spelling, and punctuation that were not noted in checking the note before signing. MM dry.......once again encouraged him to drink - Physical Exam Vitals/I&O's: Vital Signs Temp Pulse Resp BP Pulse Ox 98.1 F 84 16 93/57 L 93 02/14/20 07:31 02/14/20 07:39 02/14/20 07:31 02/14/20 07:39 02/14/20 07:31 Oxygen Flow Rate (L/min) 2 Oxygen Delivery Method Room Air Weight: 168 lb 10.458 oz Body Mass Index (BMI) 25.6 Finger Stick Blood Glucose 110 Orthostatic Vital Signs Start: 02/04/20 08:31 Freq: Status: Active Protocol: Activity Type Activity Date Activity User E-Sign Co-Sign Detail Recorded Client Recorded Date Recorded By Document 02/04/20 11:22 KKB [id number] 02/04/20 11:21 KKB 02/04/20 11:22 Orthostatic Vitals Standing -Blood Pressure (90/60-120/80 mm Hg) 132/99 H -Extremity Use Right Arm -Pulse Rate (60-100 beats/min) 71 Sitting -Blood Pressure (90/60-120/80 mm Hg) 115/68 -Extremity Use Right Arm -Pulse Rate (60-100 beats/min) 69 Lying -Blood Pressure (90/60-120/80 mm Hg) 135/77 H -Extremity Use Right Arm -Pulse Rate (60-100 beats/min) 69 Intake and Output for Last 24 Hours 02/12/20 02/13/20 02/14/20 23:59 23:59 23:59 Intake Total 1340 / 1340 1200 / 1200 300 / 300 Balance 1340 / 1340 1200 / 1200 300 / 300 Laboratory Results 02/13/20 09:06: WBC 8.0, RBC 4.94, Hgb 14.7, Hct 44.7, MCV 90.5, MCH 29.8, MCHC 32.9, RDW Std Deviation 41.5, RDW Coeff of Deanne 12.6, Plt Count 251, MPV 10.1, Immature Gran % (Auto) 0.700, Neut % (Auto) 71.0 H, Lymph % (Auto) 15.7 L, [place] % (Auto) 7.5, Eos % (Auto) 4.5, Baso % (Auto) 0.6, Absolute Neuts (auto) 5.7, Absolute Lymphs (auto) 1.26, Nucleated RBC % 0 02/13/20 09:06: Sodium 141, Potassium 4.2, Chloride 105, Carbon Dioxide 32.0, Anion Gap 4 L, BUN 26 H, Creatinine 1.35 H, Estim Creat Clear Calc 51.64, Est GFR (MDRD) Af Amer 67, Est GFR (MDRD) Non-Af 56 L, BUN/Creatinine Ratio 19.3, Glucose 138 H, Calcium 9.2 02/13/20 16:00: Ur Random Sodium 45, Urine Creatinine 172.00 Current Medications Aspirin (Ecotrin) 81 mg PO DAILY@0800 [facility] Last Admin: 02/14/20 07:33 Dose: 81 mg Documented by: Atorvastatin Calcium (Lipitor) 80 mg PO QHS [facility] Last Admin: 02/13/20 21:33 Dose: 80 mg Documented by: Bisacodyl (Dulcolax) 10 mg RECTAL .PRN X 1 PRN PRN Reason: Constipation Calamine/Phenol (Calmoseptine Ointment) 1 applic TOPICAL BID [facility]; Protocol Last Admin: 02/14/20 07:38 Dose: 1 applicatio Documented by: Doxazosin Mesylate (Cardura) 1 mg PO QHS [facility] Last Admin: 02/13/20 21:33 Dose: 1 mg Documented by: Enoxaparin Sodium (Lovenox) 40 mg SC DAILY@0600 [facility] Last Admin: 02/14/20 07:02 Dose: 40 mg Documented by: Guaifenesin (Robitussin Dm) 10 ml PO Q6H PRN PRN PRN Reason: COUGH Hydralazine HCl (Apresoline) 25 mg PO Q4H PRN PRN Reason: SYS>140 TORRES>85 Last Admin: 02/06/20 08:29 Dose: 25 mg Documented by: Hydrocodone Bit/Homatropine Methylb (Hycodan Syrup) 5 ml PO QHS [facility] Last Admin: 02/13/20 21:33 Dose: 5 ml Documented by: Ipratropium [place] (Atrovent Nasal [place] (G)) 2 spray NASAL TID [facility] Last Admin: 02/14/20 07:02 Dose: 2 spray Documented by: Magnesium Hydroxide (Milk Of Magnesia) 30 ml PO .PRN X 1 PRN PRN Reason: Constipation Melatonin (Melatonin) 6 mg PO QHS [facility] Last Admin: 02/13/20 21:33 Dose: 6 mg Documented by: Metoprolol Succinate (Toprol Xl (Beta Yasmin)) 50 mg PO BID [facility] Last Admin: 02/14/20 07:39 Dose: Not Given Documented by: Mirtazapine (Remeron) 15 mg PO QHS [facility] Last Admin: 02/13/20 21:32 Dose: 15 mg Documented by: Nifedipine (Procardia Xl) 60 mg PO DAILY@1900 [facility] Last Admin: 02/13/20 20:07 Dose: 60 mg Documented by: Salmeterol Xinafoate (Serevent Diskus) 1 puff INHALATION Q12 [facility] Last Admin: 02/14/20 07:40 Dose: 1 puff Documented by: Senna/Docusate Sodium (Senokot-S, Karina-Colace) 2 tablet PO BID [facility] Last Admin: 02/14/20 07:40 Dose: Not Given Documented by: Sodium Chloride () 10 - 40 ml IV UD PRN PRN Reason: SALINE FLUSH Last Admin: 02/01/20 18:56 Dose: 10 ml Documented by: Discharge Activity: May Not Drive - for 6 months and must have a driving education program prior to driving......there is such a program at [facility] [place], - - Use the cane to walk and to help maintain your balance. Weight Bearing Status: Full weight bearing Additional Activity Instructions:: Do the exercises that were given to you by the therapists twice a day at least 6 days a week. Walking is great exercise.......take the grandkids with you! Exercise is easier to do daily when you make it fun. Call your doctor if you observe: Fever of 101 or Higher, Inability to urinate, Inability to have a bowel movement, Shortness of breath, Dizziness, Fainting spells, Swelling in the ankles, Chest pain, Increased palpitations (irregular heartbeat), Calf discomfort, - - Go the ED or call 911 immediately if sudden onset: 1. facial droop 2. slurred speech or inability to get words out 3. weakness or numbness on 1 side of the face, arm or leg. 4. vertigo or room spinning 5. loss of vision or trouble seeing in one eye 6. Confusion 7. Trouble walking or maintaining balance and trouble with coordination 8. Sudden severe headache with no known cause Home Medications: Medications to take at Discharge Aspirin E.C. [Ecotrin] 81 mg PO DAILY@0800 01/25/20 Atorvastatin Calcium [Lipitor] 80 mg PO QHS #30 tab 02/14/20 Doxazosin Mesylate [Cardura] 1 mg PO QHS #30 tab 02/14/20 Guaifenesin Dm [Robitussin Dm] 10 ml PO Q6H PRN PRN udc 02/14/20 Melatonin 6 mg PO QHS tab 02/14/20 Metoprolol(XL)Succ [Toprol Xl (Beta Yasmin)] 50 mg PO BID #60 tab 02/14/20 Mirtazapine [Remeron] 30 mg PO QHS #30 tab 02/14/20 NIFEdipine [Procardia Xl] 60 mg PO DAILY@1900 #30 tab 02/14/20 Nicotine [Nicoderm Cq ([facility]KC)] 14 mg TRANSDERM. DAILY #28 patch 02/14/20 Following Prescriptions Were Given to Patient: Doxazosin Mesylate [Cardura] 1 mg PO QHS #30 tab Transmission Status: Received by [facility] Atorvastatin Calcium [Lipitor] 80 mg PO QHS #30 tab Transmission Status: Received by [facility] Nicotine [Nicoderm Cq ([facility])] 14 mg TRANSDERM. DAILY #28 patch Prescription Printed NIFEdipine [Procardia Xl] 60 mg PO DAILY@1900 #30 tab Transmission Status: Received by [facility] Mirtazapine [Remeron] 30 mg PO QHS #30 tab Transmission Status: Received by [facility] Metoprolol(XL)Succ [Toprol Xl (Beta Yasmin)] 50 mg PO BID #60 tab Transmission Status: Received by [facility] Other Amb Orders: Polysomnography [SL] Facility: [facility], Location: [facility] Primary Care Physician: Care Physician,No Primary [Primary Care Provider] - Please Follow Up With: Mohamud Flores MD Please Follow Up With: Maru Yip NP Please Follow Up With: Sleep Study Please Follow Up With: Ry Gilbert MD Patient Instructions: Effects of a Stroke on the Brain and Body, Mood Swings and Depression After a Stroke, Preparing Your Home After Stroke, Stroke: Resources and Support, What Are Snoring and Sleep Apnea?, Understanding the Link Between High Blood Pressure and Stroke, Continuous Positive Air Pressure (CPAP), Visiting a Sleep Clinic, For Caregivers: Self-Care After Stroke Disposition: Home - home with his dtr Columba. OP therapy in [facility]. Minutes spent on discharge:: 45 Patient Condition:: Stable Medical Necessity - Tobacco Use Smoking Status: Current every day smoker Tobacco Use: Secondhand, Cigarettes Meaningful Use Info Meaningful Use Diagnoses (Choose all that apply): Ischemic CVA - CVA Therapy Assessed for PT,OT and/or ST?: Yes - Ischemic Stroke Antithrombotic order at d/c?: Yes Dx of Atrial fib/flutter?: No Anticoagulant at discharge?: No Reason anticoagulant not ordered: Treatment not Indicated Statins at discharge?: Yes Primary Dx Acute Ischemic CVA?: Yes IV tPA ordered during stay?: No Reason IV t-PA not ordered: Treatment not Indicated - he had TPA at presentation to the ED. We are a inpt rehab unit and did not provide acute care at the time of CVA onset Inpatient E&M: [id number] [facility]
--- NOTE | 2020-02-14 13:22 | NURSING ---
Dr Maynard seen pt. pt is to F/U in 4-6 weeks
--- NOTE | 2020-02-14 13:35 | NURSING ---
pt discharged home with daughter. Discharge instructions, medications and appointments reviewed with pt and daughter. Denies questions or concerns
[2020-02-14 13:39] VITALS: BP 93/57; PULSE 84; RESP 16; TEMP 36.6; O2SAT 93
--- NOTE | 2020-02-14 13:44 | CON.PCM_ITS ---
Problem List (1) Acute right arterial ischemic stroke, middle cerebral artery (MCA) Status: Acute (2) Left-sided weakness Status: Acute Comment: Due to recent R MCA ischemic CVA. Reeived TPA and the follow up MRI showed R posterior internal capsule lacunar ischemic infract (3) Hemianopia Status: Acute Comment: this has resolved (4) Low HDL (under 40) Status: Chronic (5) Dyslipidemia Status: Chronic (6) Tobacco dependence Status: Chronic Comment: 1 PPD X 45-50 years (7) HTN (hypertension) Status: Chronic Comment: He was diagnosed with HTN approximattely 6 years prior to the CVA but, he elected not to take medication and then never followed up with PCP. (8) LVH (left ventricular hypertrophy) Status: Chronic Comment: moderate (9) Diastolic dysfunction Status: Chronic Comment: stage 1 Reason for Consult Date of Consultation: 02/14/20 Reason for Consultation: Nocturnal hypoxia History of Present Illness: The patient is a 70 year old M, with past medical history listed below, who presented to [facility] on 01/22/2020 secondary to acute stroke. Patient was then admitted to rehab on 01/25/2020 with left hemiparesis, some cognitive dysfunction and dysarthria. Patient has successfully completed rehab and is supposed to go home today. However, patient recently was noted to have significant hypoxia and there was some concerns for obstructive sleep apnea and COPD, so a pulmonary consult was obtained. Patient does have an extensive smoking history and chronic cough. Patient states he is never had a pulmonary function test or seen a lung doctor before. However, patient has a 88-97-jfal-year smoking history at the time of his stroke. Patient states that he has not smoked since he has been in the hospital and plans on going home with his daughter. Patient does have a history of chest trauma with fractured ribs and a chest tube on the right that required to 3-week hospitalization. Since that time, patient has been told to tell others that his right diaphragm is up and has been that way for some time. Patient continues to have a cough, but states the production is improved. Patient denies any unintentional weight loss, chest pain, bowel pain, nausea or vomiting. Patient denies any exposure to asbestos. Patient is planning to go home with his daughter and is excited about leaving the hospital. Patient reportedly already has a sleep study scheduled for February 28 and states he is willing to try therapy if necessary. Review of systems otherwise negative from a constitutional, HEENT, respiratory, cardiovascular, GI, genitourinary, musculoskeletal, skin, neurologic, psychiatric and hematologic system unless stated above. Past Medical History Past Medical History (Chronic Problems): Chronic Problems Low HDL (under 40) (Chronic) Dyslipidemia (Chronic) Tobacco dependence (Chronic) 1 PPD X 45-50 years HTN (hypertension) (Chronic) He was diagnosed with HTN approximattely 6 years prior to the CVA but, he elected not to take medication and then never followed up with PCP. FH: colon cancer (Chronic) in his mother LVH (left ventricular hypertrophy) (Chronic) moderate Diastolic dysfunction (Chronic) stage 1 Allergies lisinopril Adverse Reaction (Intermediate, Uncoded 02/14/20 08:38) dry coughing paroxysms Home Medications: Ambulatory Orders Medication Instructions Recorded Aspirin E.C. [Ecotrin] 81 mg PO DAILY@0800 01/25/20 Atorvastatin Calcium [Lipitor] 80 mg PO QHS #30 tab 02/14/20 Doxazosin Mesylate [Cardura] 1 mg PO QHS #30 tab 02/14/20 Guaifenesin Dm [Robitussin Dm] 10 ml PO Q6H PRN PRN udc 02/14/20 Melatonin 6 mg PO QHS tab 02/14/20 Metoprolol(XL)Succ [Toprol Xl 50 mg PO BID #60 tab 02/14/20 (Beta Yasmin)] Mirtazapine [Remeron] 30 mg PO QHS #30 tab 02/14/20 NIFEdipine [Procardia Xl] 60 mg PO DAILY@1900 #30 tab 02/14/20 Nicotine [Nicoderm Cq (PBKC)] 14 mg TRANSDERM. DAILY #28 patch 02/14/20 Surgical History: noncontributory Psychiatric History: No pertinent psych hx Lives: Alone Smoking Status: Current every day smoker Tobacco Use: Secondhand, Cigarettes Alcohol: Occasional - he has a few beers a couple times a week Drugs: None - *Family History Maternal History Items: Cancer - mother had colon CA, Hypertension Paternal History Items: Diabetes, Heart Disease, - - severe PVD with hx of BL LE amputations to the groin Sibling History Items: Heart Disease Review of Systems Comment: See HPI Objective: Chest x-ray and CT scan of the chest were personally reviewed. Chest x-ray shows an elevated right hemidiaphragm, but CT scan shows mild interstitial lung disease with bronchiectasis of the right lower lobe and elevation of the right hemidiaphragm. There is some emphysematous changes noted. No pulmonary function test is available for review. Patient did have a echocardiogram completed during his hospitalization. This echocardiogram showed an EF of 65% with stage I diastolic dysfunction and mild aortic valve thickening without stenosis. Unable to quantify pulmonary artery pressures on that study. - Physical Exam Vitals/I&O's: Vital Signs Temp Pulse Resp BP Pulse Ox 36.6 C 84 16 93/57 L 93 02/14/20 13:39 02/14/20 13:39 02/14/20 13:39 02/14/20 13:39 02/14/20 13:39 Oxygen Flow Rate (L/min) 2 Oxygen Delivery Method Room Air Weight: 76.5 kg Body Mass Index (BMI) 25.6 Finger Stick Blood Glucose 110 Intake and Output for Last 24 Hours 02/12/20 02/13/20 02/14/20 23:59 23:59 23:59 Intake Total 1340 / 1340 1200 / 1200 920 / 920 Balance 1340 / 1340 1200 / 1200 920 / 920 General: Alert, Oriented x3, Cooperative, No apparent distress, Well developed, Well nourished, - - Slight dysarthria, but no conversational dyspnea HEENT: Atraumatic, PERRLA, EOMI, Normocephalic, - - Slight right-sided facial droop Oral: Moist Mucosa, No Gingival or Mucosal Lesions/ Ulcerations, - - Fair dentition Neck: Supple, No JVD, No Nodes, Trachea Midline Lungs: No rhonchi, No wheeze, No rales, Diminished, - - Symmetric expansion. No dullness to percussion. Cardiovascular: Regular rate, Regular Rhythm, Normal S1, Normal S2, No murmurs, No rub noted, No Gallop Abdomen: Bowel Sounds Present, Soft, Non Tender, Non-Distended Extremities: No clubbing, No cyanosis, No edema Skin: No rashes, No breakdown Musculoskeletal: No Tenderness to Palpation of Joints or Extremities Lymphatic: No Cervical, Supraclavicular, or Inguinal Adenopathy Neurological: - - Left-sided weakness and slight facial droop noted. Sensation intact. Psych/Mental Status: Alert and oriented to time, place, person, mood and affect Laboratory Results 02/13/20 16:00: Ur Random Sodium 45, Urine Creatinine 172.00 Clinical Impression(s) from Imaging Studies Chest X-Ray 02/06/20 17:45 IMPRESSION: Stable elevation of the right hemidiaphragm with right basilar atelectasis. No acute thoracic pathology. Electronically Signed: Gordo Hoyt, at 18:03 EDT Tel , Service support , Chest CT 02/13/20 08:39 IMPRESSION: Mild chronic interstitial changes in the lower lobes greater on the right and associated thickening of the bronchial thompson.. Tiny nodule in the right middle lobe approximately 2.4 mm likely benign however would recommend follow-up studies utilizing FLEISCHNER Society criteria. Electronically Signed: Jas Santa MD at 22:41 EDT , Service support , Assessment/Plan All Active Problems Acute right arterial ischemic stroke, middle cerebral artery (MCA) (Acute) Left-sided weakness (Acute) Hemianopia (Acute) Hypertensive emergency (Resolved) Dehydration (Acute) RECOMMENDATIONS: 1. Continue supplemental oxygen until PSG with sleep 2. Okay to discharge without bronchodilators 3. Complete PFT and walking oximetry as an outpatient 4. Follow-up with nurse practitioner in our office 3 to 7 days following sleep study 5. Encourage continued smoking cessation IMPRESSIONS: 1. Hypoxia Clinical suspicion for multifactorial etiology. Nocturnal hypoxia likely secondary to sleep disordered breathing in the setting of chronic lung disease. High clinical suspicion for COPD, but patient does have bronchiectasis noted on the CT scan of the chest. Pulmonary toileting will be important to avoid future complications. Okay to hold off on bronchodilator therapy for now until further information can be obtained. An outpatient pulmonary function test would be appropriate. Would also obtain a walking oximetry. 2. Bronchiectasis/probable COPD/history of tobacco use Patient does have right lower lobe bronchiectasis noted along with right hemidiaphragm elevation. This is likely secondary to previous trauma with infectious complications. Patient would benefit from pulmonary toileting. Outpatient pulmonary function test for quantification clarification of lung function. Did encourage continued smoking cessation. 3. Probable sleep disordered breathing Patient with recent CVA with facial effects. This does increase his risk for sleep disordered breathing. Would keep polysomnogram as ordered by rehab. Supplemental oxygen with sleep and ambulation in the interim would be appropriate. Continue therapy recommendations 4. Recent CVA/depression/post stroke debility/hypertension Complicates care, management, recovery and prognosis. Okay to continue with baseline medications per rehab staff. Inpatient E&M: 51344 Init Hosp L2
== END 2020-02-14 13:43 | disposition home or self-care (01) | DRG 57 ==
PROVIDERS: Admitting Provider Internal Medicine; Visit Provider Internal Medicine
DX: I69.354 Hemiplegia and hemiparesis following cerebral infarction affecting left non-dominant side (principal); J96.11 Chronic respiratory failure with hypoxia; E78.5 Hyperlipidemia, unspecified; F17.210 Nicotine dependence, cigarettes, uncomplicated; I69.319 Unspecified symptoms and signs involving cognitive functions following cerebral infarction; I11.9 Hypertensive heart disease without heart failure; F32.9 Major depressive disorder, single episode, unspecified; G47.00 Insomnia, unspecified; E86.0 Dehydration; N40.0 Benign prostatic hyperplasia without lower urinary tract symptoms; J44.9 Chronic obstructive pulmonary disease, unspecified; I69.322 Dysarthria following cerebral infarction; G47.33 Obstructive sleep apnea (adult) (pediatric)
CPT/HCPCS: 36415; 71046; 71250; 80048; 80053; 82570; 83735; 84300; 84443; 85014; 85018; 85025; 85027; 92507; 92523; 94762; 96125; 97110; 97112; 97116; 97129; 97130; 97140; 97162; 97166; 97530; 97535; 97803; 99251; 99406; J7030; A4216; G0463

== ENCOUNTER → 2020-03-04 10:07 | Outpatient (CLI) | payer MEDICARE, OTHER, SELFPAY ==
[2020-03-04 09:34] VITALS: BMI 25.2
[2020-03-04 12:25] LABS: Absolute Lymphocyte Count 1.62 X10^3/uL (0.83-4.51); Absolute Neutrophil Count 5.3 X10^3/uL (2.0-7.7); Basophil# 0.05 X10^3/uL; Basophil% 0.6 % (0-1); Eosinophil# 0.37 X10^3/uL; Eosinophils% 4.6 % (0-5); Hematocrit 44.7 % (40-54); Hemoglobin 14.6 g/dL (13.0-16.5); Lymphocyte # 1.62 X10^3/ul (4.0); Lymphocyte % 20.3 % (19-41); Mean Corp Hgb Conc 32.7 g/dL (32-36); Mean Corpuscular Hgb 29.6 pg (27.0-32.0); Mean Corpuscular Volume 90.5 fL (80-94); Mean Platelet Vol. 10.8 fl (6.2-12.0); Monocyte# 0.63 X10^3/uL; Monocyte% 7.9 % (0-10); NRBC Flagged by Analyzer 0 % (0-5); Neutrophil # 5.27 X10^3/uL (2.7-7.7); Neutrophil % 65.8 % (47-70); Platelet Count 185 K/mm3 (150-450); RBC Distribution Width CV 13.6 % (11.6-14.6); RBC Distribution Width SD 44.5 fl (35.1-43.9); Red Blood Count 4.94 M/mm3 (4.6-6.2)
[2020-03-04 13:00] LABS: ALB/GLOB Ratio 0.8 RATIO (0.9-2.4); AST(SGOT) 31 U/L (15-37); Alanine Aminotransfer ALT/SGPT 43 U/L (16-61); Albumin, Serum 3.2 g/dL (3.2-5.0); Alkaline Phosphatase 88 U/L (45-117); Anion Gap 5 (5-15); BUN 20 mg/dL (7-18); BUN/Creat Ratio 17.4 RATIO (10-20); Calcium,Total 9.4 mg/dL (8.5-10.1); Chloride 110 mmol/L (98-107); Creatinine, Serum 1.15 mg/dL (0.70-1.30); EST Glomerular Filtration Rate 67 mL/min (>60); Est Glom Filt Rate - Afr Amer 81 mL/min (>60); Globulin 4.1 g/dL (2.2-4.2); Glucose 90 mg/dL (74-106); Potassium 4.2 mmol/L (3.5-5.1); Protein, Total 7.3 g/dL (6.4-8.2); Sodium Level 143 mmol/L (136-145)
== END ==
PROVIDERS: PCP Internal Medicine; Referring Provider Internal Medicine; Visit Provider Internal Medicine
DX: I10 Essential (primary) hypertension (principal); Z86.73 Personal history of transient ischemic attack (TIA), and cerebral infarction without residual deficits
CPT/HCPCS: 36415; 80053; 85025

== ENCOUNTER → 2020-03-19 06:34 | Outpatient (CLI) | payer MEDICARE, OTHER, SELFPAY ==
[2020-03-04 09:34] VITALS: BMI 25.2
--- NOTE | 2020-03-19 13:09 | STRESSREP_ITS ---
Stress Test Report Pharmacologic myocardial perfusion stress test. 70-year-old man with a history of previous cerebrovascular accident and wide- complex tachycardia. Stress protocol: Resting EKG demonstrates normal sinus rhythm with a rate of 71 bpm normal intervals are noted resting blood pressures 132/92 mmHg 0.4 mg of regadenoson was infused per usual protocol followed by rapid intravenous saline flush injection. Continuous EKG monitoring was performed. The maximum heart rate attained was 100 bpm which was 66% of max impacted heart rate the maximum workload was 1 metabolic equivalent. The peak blood pressure was 138/84 mmHg. Myocardial perfusion protocol. 11.9 mCi of technetium 99m sestamibi was injected at rest. 0.4 mg of regadenoson was infused per usual protocol. At peak infusion 33.4 mCi of technetium 99m sestamibi was injected stress images were obtained stress and rest images were reconstructed and compared in the short axis vertical long horizontal long axis. Gated images were also obtained P Perfusion SPECT analysis: Review of the images demonstrate normal uptake of tracer noted in all areas of the myocardium the resting images similar demonstrate normal uptake of tracer noted in all areas of myocardium. No areas of reversibility are noted suggest ischemia no previous infarct is noted. Gated SPECT analysis: The gated ejection fraction is 59%. Conclusion: Normal pharmacologic myocardial perfusion stress test. Preserved ejection fraction.
== END ==
LOC: SL 06:35 → CVS 06:37
PROVIDERS: PCP Internal Medicine; Referring Provider Internal Medicine Cardiovascular Disease; Visit Provider Internal Medicine Cardiovascular Disease
DX: I25.10 Atherosclerotic heart disease of native coronary artery without angina pectoris (principal); E78.6 Lipoprotein deficiency
CPT/HCPCS: 78452; 93017; A9500; A4216; J2785

== ENCOUNTER → 2020-06-25 13:15 | Outpatient (CLI) | payer MEDICARE, OTHER, SELFPAY ==
[2020-06-12 14:44] VITALS: BMI 25.7
--- NOTE | 2020-06-25 13:20 | RAD_ITS ---
STUDY: X-RAY LEFT FOOT, FIRST/SECOND TOE REASON FOR EXAM: Male, 70 years old. PAIN 1ST AND SECOND DIGIT S/P DROPPING A CAN OF VEGETABLES ON FOOT TECHNIQUE: The first and second view(s) of the toe were obtained. COMPARISON: None. FINDINGS: Normal visualized metatarsals. Normal metatarsophalangeal (M.T.P) joints. Normal interphalangeal joints. There is a small bony density dorsal to the second middle phalanx adjacent to the DIP joint seen only on the lateral view. The soft tissue structures are unremarkable. RAD/Toe(s) Min 2 Views IMPRESSION: Small chip type fracture of the second middle phalanx (adjacent to DIP joint). Electronically Signed: Jasvir Morrison MD (Brooks) at 14:40 EST , Service support ,
== END ==
PROVIDERS: PCP Internal Medicine; Referring Provider Internal Medicine; Visit Provider Internal Medicine
DX: M79.675 Pain in left toe(s) (principal)
CPT/HCPCS: 73660

== ENCOUNTER → 2020-07-18 12:19 | Outpatient (CLI) | payer MEDICARE, OTHER, SELFPAY ==
[2020-07-10 14:31] VITALS: BMI 25.9
--- NOTE | 2020-07-18 12:21 | ART_ITS ---
Reason For Study: Left second toe ulcer, Suspected PAD Procedure A bilateral lower extremity continuous wave Doppler with analog waveform analysis and ankle brachial indexes. Left Segmental Pressures Left brachial= 152mmHg. Left posterior tibial artery = 157mmHg. Left dorsalis pedis artery = 123mmHg. The left dorsalis pedis waveforms are biphasic. The left posterior tibial artery waveforms are triphasic. Right Segmental Pressures Right brachial= 162mmHg. Right posterior tibial artery = 167mmHg. Right dorsalis pedis artery = 166mmHg. Right digit = 76 mmHg. The right dorsalis pedis waveforms are triphasic. The right posterior tibial artery waveforms are triphasic. Indices The right ankle brachial index by the dorsalis pedis is 1.02. The right ankle brachial index by the posterior tibial artery is 1.03. The right digital-brachial index is 0.47. The left ankle brachial index by the dorsalis pedis is 0.76. The left ankle brachial index by the posterior tibial artery is 0.97. Interpretation Summary Normal right lower extremity ankle-brachial indices with normal triphasic right posterior tibial and dorsalis pedis Doppler waveforms Abnormal right digital brachial index consistent with temperature effect or distal small vessel disease. Clinical correlation would be appropriate Mild arterial occlusive disease left lower extremity based upon a left PT ankle-brachial index of 0.97 with a triphasic Doppler waveform. Moderate occlusive disease involving the left tibialis anterior with a DP ankle-brachial index of 0.76 and biphasic waveform Flat left digital PPG consistent with severe disease at the digital level. Ordering Physician: Mohamud Flores Referring Physician: Mohamud Flores Performed By: Britany Faria RVT
== END ==
PROVIDERS: PCP Internal Medicine; Referring Provider Internal Medicine; Visit Provider Internal Medicine
DX: I73.9 Peripheral vascular disease, unspecified (principal)
CPT/HCPCS: 93922

== ENCOUNTER → 2020-12-11 15:24 | Outpatient (CLI) | payer MEDICARE, OTHER, SELFPAY ==
[2020-12-11 14:52] VITALS: BMI 26.7
[2020-12-11 16:40] LABS: Absolute Lymphocyte Count 1.99 X10^3/uL (0.83-4.51); Absolute Neutrophil Count 4.1 X10^3/uL (2.0-7.7); Basophil# 0.04 X10^3/uL; Basophil% 0.6 % (0-1); Eosinophil# 0.21 X10^3/uL; Eosinophils% 3.1 % (0-5); Hematocrit 49.6 % (40-54); Hemoglobin 16.4 g/dL (13.0-16.5); Lymphocyte # 1.99 X10^3/ul (0.83-4.51); Lymphocyte % 29.1 % (19-41); Mean Corp Hgb Conc 33.1 g/dL (32-36); Mean Corpuscular Hgb 29.4 pg (27.0-32.0); Mean Platelet Vol. 11.3 fl (6.2-12.0); Monocyte# 0.43 X10^3/uL; Monocyte% 6.3 % (0-10); NRBC Flagged by Analyzer 0 % (0-5); Neutrophil # 4.12 X10^3/uL (2.7-7.7); Neutrophil % 60.3 % (47-70); Platelet Count 166 K/mm3 (150-450); RBC Distribution Width CV 13.4 % (11.6-14.6); RBC Distribution Width SD 43.9 fl (35.1-43.9); Red Blood Count 5.57 M/mm3 (4.6-6.2); White Blood Count 6.8 K/mm3 (4.4-11.0)
[2020-12-11 16:50] LABS: AST(SGOT) 25 U/L (15-37); Alanine Aminotransfer ALT/SGPT 31 U/L (16-61); Albumin, Serum 3.6 g/dL (3.2-5.0); Alkaline Phosphatase 84 U/L (45-117); Anion Gap 7 (5-15); BUN 25 mg/dL (7-18); BUN/Creat Ratio 17.6 RATIO (10-20); Chloride 108 mmol/L (98-107); Creatinine, Serum 1.42 mg/dL (0.70-1.30); EST Glomerular Filtration Rate 52 mL/min (>60); Est Glom Filt Rate - Afr Amer 63 mL/min (>60); Globulin 3.5 g/dL (2.2-4.2); Glucose 153 mg/dL (74-106); Potassium 4.2 mmol/L (3.5-5.1); Protein, Total 7.1 g/dL (6.4-8.2); Sodium Level 143 mmol/L (136-145)
== END ==
PROVIDERS: PCP Internal Medicine; Referring Provider Internal Medicine; Visit Provider Internal Medicine
DX: I10 Essential (primary) hypertension (principal)
CPT/HCPCS: 36415; 80053; 85025

== ENCOUNTER → 2021-01-14 12:38 | Outpatient (CLI) | payer MEDICARE, OTHER, SELFPAY ==
[2020-12-11 14:52] VITALS: BMI 26.7
[2021-01-14 15:22] LABS: Erythrocyte Sedimentation Rate 18 mm/hr (0-20)
[2021-01-14 15:23] LABS: Hemoglobin 16.8 g/dL (13.0-16.5); Mean Corp Hgb Conc 33.6 g/dL (32-36); Mean Corpuscular Hgb 29.9 pg (27.0-32.0); Platelet Count 174 K/mm3 (150-450); RBC Distribution Width CV 13.7 % (11.6-14.6); RBC Distribution Width SD 44.4 fl (35.1-43.9); Red Blood Count 5.62 M/mm3 (4.6-6.2); White Blood Count 8.2 K/mm3 (4.4-11.0)
[2021-01-14 15:32] LABS: CRP 4.38 mg/L (0.0-3.0); Creatinine, Serum 1.25 mg/dL (0.70-1.30); EST Glomerular Filtration Rate 61 mL/min (>60); Est Glom Filt Rate - Afr Amer 73 mL/min (>60)
[2021-01-14 19:22] LABS: M R Staph aureus DNA By PCR Negative (Negative); Probe Check PASS; Specimen Processing Control PASS; Staph aureus DNA By PCR POSITIVE (Negative)
== END ==
PROVIDERS: PCP Internal Medicine; Referring Provider Podiatrist; Visit Provider Podiatrist
DX: L03.032 Cellulitis of left toe (principal)
CPT/HCPCS: 36415; 82565; 85027; 85652; 86140; 87070; 87075; 87077; 87186; 87205; 87640

== ENCOUNTER 2021-09-30 13:22 | Outpatient (CLI) | payer MEDICARE, SELFPAY ==
[2021-09-30 15:12] LABS: Anion Gap 3 (5-15); BUN 21 mg/dL (7-18); Calcium,Total 9.1 mg/dL (8.5-10.1); Chloride 110 mmol/L (98-107); Creatinine, Serum 1.61 mg/dL (0.70-1.30); EST Glomerular Filtration Rate 45 mL/min (>60); Est Glom Filt Rate - Afr Amer 55 mL/min (>60); Glucose 90 mg/dL (74-106); PSA,Total - Annual Screen 2.58 ng/mL (0.00-4.00); Potassium 4.6 mmol/L (3.5-5.1); Sodium Level 141 mmol/L (136-145)
== END 2021-09-30 23:59 | disposition home or self-care (01) ==
LOC: BIMLAB 13:23
PROVIDERS: PCP Internal Medicine; Referring Provider Internal Medicine; Visit Provider Internal Medicine
DX: I10 Essential (primary) hypertension (principal); N40.0 Benign prostatic hyperplasia without lower urinary tract symptoms; Z12.5 Encounter for screening for malignant neoplasm of prostate
CPT/HCPCS: 36415; 80048; 84153; G0103

== ENCOUNTER → 2021-11-02 | Outpatient (CLI) | payer MEDICARE, SELFPAY ==
[2021-11-02 12:42] LABS: Anion Gap 3 (5-15); BUN 19 mg/dL (7-18); BUN/Creat Ratio 12.3 RATIO (10-20); Calcium,Total 8.7 mg/dL (8.5-10.1); Chloride 108 mmol/L (98-107); Creatinine, Serum 1.54 mg/dL (0.70-1.30); EST Glomerular Filtration Rate 48 mL/min (>60); Est Glom Filt Rate - Afr Amer 58 mL/min (>60); Glucose 89 mg/dL (74-106); Potassium 4.1 mmol/L (3.5-5.1); Sodium Level 141 mmol/L (136-145)
== END | disposition home or self-care (01) ==
LOC: BIMLAB 10:35
PROVIDERS: PCP Internal Medicine; Visit Provider Internal Medicine
DX: N17.9 Acute kidney failure, unspecified (principal)
CPT/HCPCS: 36415; 80048

== ENCOUNTER 2022-04-16 10:13 | Emergency (ER) | payer MEDICARE, SELFPAY ==
[2022-04-16 10:15] VITALS: BP 122/86; PULSE 84; RESP 17; TEMP 35.8; O2SAT 98; BMI 25.7
--- NOTE | 2022-04-16 10:48 | CT_ITS ---
STUDY: CT BRAIN WITHOUT CONTRAST REASON FOR EXAM: Male, 72 years old. Dysequilibrium, chronic L weakness RADIATION DOSAGE (If Supplied By Facility): CTDIvol = ( 47.06 ) mGy, DLP = ( 943.26 ) mGycm TECHNIQUE: Transaxial CT imaging of the brain was performed without administration of intravenous contrast material. Individualized dose optimization techniques were used for this CT. COMPARISON: No relevant priors. FINDINGS: Normal soft tissue structures. Normal calvarium. There is mild cerebral atrophy with widening of the extra-axial spaces and ventricular dilatation. There are areas of decreased attenuation within the white matter tracts of the supratentorial brain, consistent with microvascular disease changes. Normal basal ganglia and thalami. Normal brainstem. Normal cerebellum. There is no intracranial hemorrhage. There are no findings of an acute ischemic infarction. There is moderate mucosal thickening of the paranasal sinuses. CT/Brain/Head without Contrast IMPRESSION: Chronic involutional changes of the brain. Electronically Signed: Gwyn Rome MD at 12:04 EDT ,
--- NOTE | 2022-04-16 11:34 | EX.ED.DYSGE1 ---
HPI History of Present Illness Chief Complaint: Fall Informant: patient Narrative Narrative: Patient presents 2 days after he got up out of bed on the other side of the bed that he usually gets up on, he was off balance and fell 4 or [address] over to the other side of the bed to turn on the light. He was in the dark, he has chronic left-sided weakness since a stroke he had suffered 2 years ago. He states even in December of this year, when he was playing basketball with his granddaughter, stepping to the left onto his weak leg caused him to have a fall because it is weaker than normal. He has been doing rehab and getting better, but his left side has never come back to normal completely. With regards to the falls that he had 2 days ago, he does not feel like he had any major injuries. He states he always falls to the left whenever he falls and that is what happened 2 days ago as well, he fell to his left shoulder and ribs, he has multiple bruises on both forearms and his left anterior rib cage, and his left mid back over the ribs, none of it hurts significantly, which is why he did not come in to be seen for any of this. He did not hit his head. He got to the light and turned it on, and states that ever since then, for the past 2 days, he has been at baseline with no other falls or other issues. He states that his daughters saw the bruises and had him come to get checked out. He states that when he was off balance for those 20 minutes or so 2 days ago, it did feel similar to when he had his stroke 2 years ago. Additionally, he had a shingles vaccine the day before these falls. Ever since then, his left arm has been sore and harder to lift. He states it is still sore today from the vaccine, but he can lift it much better now than he could 2 days ago, and the only reason he had trouble lifting it was due to pain in the left lateral shoulder, not weakness according to the patient. He shows me as he lifts his hand up on the left to run it through the hair on the left side of his scalp and he states 2 days ago I could not do this because of the soreness and pain. He states his leg works like normal. He denies any other new symptoms including speech, vertigo, changes in vision, illness. PFS PFSH Medical History Acute right arterial ischemic stroke, middle cerebral artery (MCA) NATALI (acute kidney injury) BPH (benign prostatic hyperplasia) Dehydration Diastolic dysfunction Dyslipidemia Essential hypertension FH: colon cancer Flu vaccine need Health care maintenance Hemianopia History of CVA (cerebrovascular accident) Left-sided weakness Low HDL (under 40) LVH (left ventricular hypertrophy) Peripheral vascular disease Tobacco dependence Home Medications aspirin 81 mg tablet,delayed release 81 mg PO DAILY@0800 heart 01/25/20 [History Last Taken Unknown] atorvastatin 80 mg tablet 40 mg PO QHS cholesterol #90 tabs 07/24/21 [Rx Last Taken Unknown] losartan 100 mg tablet 100 mg PO DAILY #90 tabs 08/24/21 [Rx Last Taken Unknown] metoprolol succinate 50 mg tablet,extended release 24 hr 50 mg PO BID #180 tabs 08/24/21 [Rx Last Taken Unknown] Allergy/AdvReac Type Severity Reaction Status Date / Time lisinopril AdvReac Mild DRY COUGH Verified 04/16/22 10:15 Family History Father Diabetes Mother Colon cancer Heart disease Surgical History H/O knee surgery Social History Smoking Status: Current every day smoker tobacco type: cigarettes Tobacco: How many years used: 50 alcohol intake: current alcohol intake frequency: holidays/special occasions only Alcohol type: beer substance use type: does not use ROS ROS ED Constitutional Constitutional ED: Denies chills or fever(s) Eyes Eyes: Denies change in vision or diplopia ENT ENT ED: Denies rhinorrhea or sore throat Cardiovascular Cardiovascular: Denies chest pain or palpitations Respiratory/Chest Respiratory/Chest: Denies cough or dyspnea Gastrointestinal Gastrointestinal: Denies abdominal pain, diarrhea, nausea or vomiting Genitourinary Genitourinary ED: Denies dysuria or hematuria Musculoskeletal Musculoskeletal: Reports as per HPI and extremity pain; Denies back pain or neck pain Integumentary Denies abscess or rash Neurologic Neurologic: Reports as per HPI, disequilibrium and weakness; Denies headache(s) or paresthesias Psychiatric Psychiatric: Denies anxiety or suicidal thoughts EXAM Physical Exam Const Vital Signs: 04/16/22 10:15 04/16/22 10:37 Temperature 96.5 F L Temperature Source Temporal Pulse Rate 84 Respiratory Rate 17 Respiratory Effort Normal Non-Labored Respiratory Depth Normal Respiratory Pattern Normal Blood Pressure 122/86 H Blood Pressure Mean 98 Pulse Ox 98 Oxygen Delivery Method Room Air Room Air Positive well nourished and well developed General Appearance ED: well developed and NAD HEENT Reports moist mucous membranes normocephalic and atraumatic Eyes PERRL and EOMs intact bilaterally Neck full ROM and supple Resp normal respiratory effort and clear to auscultation bilaterally Cardio regular rate, regular rhythm and no murmurs GI non-tender and non-distended Auscultation: normoactive bowel sounds Palpation: soft Back/Spine no CVA tenderness General Back: other FROM Extremity normal to inspection Extremity Narrative: Patient has some mild pain with lifting his left upper extremity and forward flexion/abduction of the shoulder, but there is no tenderness or signs of injury. Full range of motion throughout all 4 extremities. General Extremety ED: Negative for edema, pulses abnormal or tenderness General Extremity: Negative for edema or pulses abnormal Neuro oriented x3, CN's II-XII intact bilaterally and no sensory deficits noted Neuro Narrative: Mild weakness left upper extremity patient states this is his baseline, no other focal neurologic deficits. NIHSS 0. Normal sensation, normal [id number] and [id number] bilaterally, normal Romberg patient able to stand without difficulty on both feet. Sensorium / Orientation: awake and alert Skin no rashes or lesions noted and no wounds Skin Narrative: Bruising left posterior rib cage nontender. No crepitance. Minor bruising without tenderness left anterior rib cage. Minor bruises both forearms no bony tenderness. No other injuries. MDM MDM MDM Narrative Medical decision making narrative: Patient states he had symptoms that felt like prior stroke that were 2 days ago and lasted for 20 minutes or so until he turned on the light in the room that was dark prior to that. Furthermore, he fell to the left and chronically has that problem since his stroke 2 years ago. I performed a CT scan, it shows no difference compared with his prior, his vital signs are normal, and he currently is at baseline. Certainly a TIA is possible, but I think less likely. I think he simply got up in the dark and accidentally made himself dependent on his left leg which caused him to fall. He agrees that is a plausible explanation for that episode. Reassured with regards to his injuries, I do not think he needs any imaging there and he is in agreement since they do not even hurt. I think it would be reasonable to take a full aspirin every day until he follows up with his doctor, at the most. Radiography Diagnostic Testing: Clinical Impression(s) from Imaging Studies Brain CT 04/16/22 10:48 IMPRESSION: Chronic involutional changes of the brain. Electronically Signed: Gwyn Rome MD at 12:04 EDT , Discharge Plan Triage Chief Complaint: Fall ED Provider: Gwyn Boateng Dx/Rx/DC Orders Clinical Impression: Contusion of rib on left side, Accidental fall, Dysequilibrium Instructions: ED Soft Tissue Contusion Prescriptions: No Action aspirin 81 MG tablet 81 mg PO DAILY@0800 atorvastatin 80 mg tablet 40 mg PO QHS Qty: 90 1RF metoprolol succinate 50 mg tablet extended release 24 hr 50 mg PO BID Qty: 180 3RF losartan 100 mg tablet 100 mg PO DAILY Qty: 90 3RF Primary Care Provider: Mohamud Flores Referrals: Mohamud Flores MD [Primary Care Provider] - 1-2 Weeks Activity Restrictions/Additional Instructions: It would be reasonable to replace your baby aspirin with a full dose aspirin (325 mg) until you follow-up with your doctor. Disposition Disposition: Home, Self Care
[2022-04-16 12:30] VITALS: BP 128/88; PULSE 63; RESP 16; O2SAT 97
== END 2022-04-16 12:30 | disposition home or self-care (01) ==
PROVIDERS: Emergency Provider Emergency Medicine; PCP Internal Medicine; Visit Provider Emergency Medicine
DX: S20.212A Contusion of left front wall of thorax, initial encounter (principal); I69.354 Hemiplegia and hemiparesis following cerebral infarction affecting left non-dominant side; S50.11XA Contusion of right forearm, initial encounter; S50.12XA Contusion of left forearm, initial encounter; R29.6 Repeated falls; W18.30XA Fall on same level, unspecified, initial encounter; R42 Dizziness and giddiness; I10 Essential (primary) hypertension; E78.5 Hyperlipidemia, unspecified; F17.210 Nicotine dependence, cigarettes, uncomplicated; Z79.82 Long term (current) use of aspirin; Z79.899 Other long term (current) drug therapy; N40.0 Benign prostatic hyperplasia without lower urinary tract symptoms
CPT/HCPCS: 70450; 99282

== ENCOUNTER 2023-05-03 21:03 | Emergency (ER) | payer MEDICARE, SELFPAY ==
[2023-05-03 21:04] VITALS: BP 158/91; PULSE 73; RESP 24; TEMP 36.4; O2SAT 94; BMI 26.8
[2023-05-03 21:15] VITALS: O2SAT 94
--- NOTE | 2023-05-03 21:21 | EKG12_ITS ---
Test Reason : SOB Blood Pressure : / mmHG Vent. Rate : 078 BPM Atrial Rate : 078 BPM P-R Int : 138 ms QRS Dur : 088 ms QT Int : 362 ms P-R-T Axes : 043 030 037 degrees QTc Int : 412 ms Normal sinus rhythm Nonspecific ST abnormality Abnormal ECG Confirmed by HUMAIRA SAUCEDO, GALLO ([id number]), assistant film editor MICHAEL LYNCH ([id number]) on 05/09/2023 8:34:29 AM Referred By: AYLIN Confirmed By:REJI GERARDO MD
--- NOTE | 2023-05-03 21:22 | ED.VIS.DYS ---
HPI History of Present Illness Chief Complaint: Shortness of Breath Informant: patient, family (Daughter) and EMS Onset/Context/Timing Onset: Today Context: gradual, onset, activity on onset and rest Timing: Continuous Quality: Positive for Wheezing Current Severity: Gone Maximum Severity: Moderate Worsened by: Nothing Relieved by: Albuterol (Given by EMS) Associated Symptoms Chest Pain: Positive for Tightness (While dyspneic, resolved now) Narrative Narrative: 73-year-old male with a longstanding history of smoking but no history of COPD or asthma states he was sitting at home tonight he started having chest tightness and wheezing dyspnea, it became worse when he got up and moved around so his daughter was contacted who called EMS. They gave him albuterol treatment in route, the patient states this helped a lot now he feels a lot better. He had COVID and influenza vaccines earlier today. He has had every COVID-vaccine up until this 1, and has never had an adverse reaction from them. He states he has chronic rhinorrhea and congestion with cough that is nonproductive and that is no different today. No leg edema or orthopnea lately. No fevers or chills. No known sick contacts. No travel out of the area. No history of DVT or PE. Has a history of a stroke that left him with some deficits on the left side, as well as TIAs, he is on a baby aspirin daily no other antiplatelet or anticoagulant medications. [facility] Medical History Acute right arterial ischemic stroke, middle cerebral artery (MCA) NATALI (acute kidney injury) BPH (benign prostatic hyperplasia) Dehydration Diastolic dysfunction Dyslipidemia Essential hypertension FH: colon cancer Flu vaccine need Health care maintenance Hemianopia History of CVA (cerebrovascular accident) Left-sided weakness Low HDL (under 40) LVH (left ventricular hypertrophy) Peripheral vascular disease Tobacco dependence Home Medications aspirin 81 mg tablet,delayed release 81 mg PO DAILY@0800 heart 01/25/20 [History Last Taken Unknown] losartan 100 mg tablet 100 mg PO DAILY #90 tabs 08/27/22 [Rx Last Taken Unknown] metoprolol succinate 50 mg tablet,extended release 24 hr 50 mg PO BID #180 tabs 08/27/22 [Rx Last Taken Unknown] albuterol sulfate 90 mcg/actuation aerosol inhaler (Ventolin HFA) 2 puff inhalation Q4H PRN PRN Wheezing ##1 05/03/23 [Rx Last Taken Unknown] atorvastatin 40 mg tablet 80 mg PO QHS cholesterol 05/03/23 [History Last Taken Unknown] Allergy/AdvReac Type Severity Reaction Status Date / Time lisinopril AdvReac Mild DRY COUGH Verified 04/16/22 10:15 Family History Father Diabetes Mother Colon cancer Heart disease Surgical History H/O knee surgery Social History household members: none Smoking Status: Current every day smoker tobacco type: cigarettes Tobacco: How many years used: 50 alcohol intake: current alcohol intake frequency: holidays/special occasions only Alcohol type: beer substance use type: does not use ROS ROS ED Constitutional Constitutional ED: Denies chills or fever(s) Eyes Eyes: Denies change in vision or diplopia ENT ENT ED: Reports nasal congestion and rhinorrhea; Denies sore throat Cardiovascular Cardiovascular: Reports chest pain; Denies orthopnea or palpitations Respiratory/Chest Respiratory/Chest: Reports cough and dyspnea; Denies orthopnea Gastrointestinal Gastrointestinal: Denies abdominal pain, diarrhea, nausea or vomiting Genitourinary Genitourinary ED: Denies dysuria or hematuria Musculoskeletal Musculoskeletal: Denies back pain or neck pain Integumentary Denies abscess or rash Neurologic Neurologic: Denies headache(s), paresthesias or weakness Psychiatric Psychiatric: Denies anxiety or suicidal thoughts EXAM Physical Exam Const Vital Signs: 05/03/23 21:04 05/03/23 21:15 05/03/23 21:29 Temperature 97.5 F L 97.5 F L Temperature Source Temporal Temporal Pulse Rate 73 73 Respiratory Rate 24 H 20 H Respiratory Effort Short of Breath Blood Pressure 158/91 H 158/91 H Blood Pressure Mean 113 113 Pulse Ox 94 94 Oxygen Delivery Method Room Air Room Air Oxygen Flow Rate (L/min) 05/03/23 21:29 05/03/23 22:03 05/03/23 22:09 Temperature 97.8 F Temperature Source Temporal Pulse Rate 77 77 Respiratory Rate 16 16 Respiratory Effort Blood Pressure 130/90 H 130/90 H Blood Pressure Mean 103 103 Pulse Ox 97 97 Oxygen Delivery Method Room Air Oxygen Flow Rate (L/min) 94 Positive well nourished and well developed General Appearance ED: well developed and NAD HEENT Reports moist mucous membranes normocephalic and atraumatic Eyes PERRL and EOMs intact bilaterally Neck full ROM, supple and no JVD Resp normal respiratory effort Effort and Inspection: able to speak in complete sentences and prolonged expiratory phase; Negative for pursed lip breathing, stridor, actively coughing, retractions or uses accessory muscles Auscultation: wheezes expiratory wheezes and throughout (Mild); Negative for rales or rhonchi Cardio regular rate, regular rhythm and no murmurs GI non-tender and non-distended Auscultation: normoactive bowel sounds Palpation: soft Back/Spine no CVA tenderness General Back: other FROM Extremity normal to inspection General Extremety ED: Negative for edema, pulses abnormal or tenderness General Extremity: Negative for edema or pulses abnormal Neuro oriented x3, CN's II-XII intact bilaterally and no sensory deficits noted Sensorium / Orientation: awake and alert Psych mental status grossly normal Skin no rashes or lesions noted and no wounds MDM MDM MDM Narrative Medical decision making narrative: It is certainly possible that this patient has been developing COPD with his longstanding history of smoking, however it is also possible this is cardiac related or congestive heart failure, pneumonia in a differential diagnosis as well. Sounds more pulmonary since breathing treatment helped him so much and he is asymptomatic still with some diffuse end expiratory wheezes and prolonged expiratory phase. proBNP is well within normal limits, his troponin is 3, ruling out acute coronary syndrome in case of a normal EKG here and prehospital, and chest x-ray 2 views of my interpretation shows no evidence of pneumonia. Radiology in agreement. I reexamination he states he is breathing well even with walking back and forth to the bathroom and does not have any symptoms except for feeling cold. He was 94% on room air, we had nursing ambulate him with pulse oximetry check, he walked all the way around his apartment without going less than 94% on room air although he was a little dyspneic at the end. He recovered quickly symptom molina. I think he can follow-up as an outpatient, he is in agreement, differential here includes COPD, reactive airway related to an early viral infection, his COVID and influenza are negative, and/or immune reaction due to the vaccinations he had earlier although this would be early for that. We discussed potentially prescribing him steroids, but we are holding off on that since he just had these vaccines and that might in theory decrease their efficacy. Prescribed an albuterol inhaler to use as needed advised to follow-up, but if he needs to use it constantly, at that point the benefits of steroids might outweigh the downside. I suggest following up for pulmonary function testing and reevaluation. Discussed this with him and daughter which are in agreement. Lab Data Attestation: I reviewed the patient's lab results. Labs: Laboratory Results - last 24 hr 05/03/23 21:50 WBC 9.0 RBC 5.45 Hgb 16.5 Hct 49.4 MCV 90.6 MCH 30.3 MCHC 33.4 RDW Std Deviation 44.9 H RDW Coeff of Deanne 13.4 Plt Count 158 MPV 10.5 Immature Gran % (Auto) 0.200 Neut % (Auto) 85.6 H Lymph % (Auto) 8.0 L Pike % (Auto) 5.2 Eos % (Auto) 0.7 Baso % (Auto) 0.3 Absolute Neuts (auto) 7.7 Absolute Lymphs (auto) 0.72 L Nucleated RBC % 0 Sodium 141 Potassium 3.7 Chloride 109 H Carbon Dioxide 30.0 Anion Gap 2 L BUN 20 H Creatinine 1.27 Estim Creat Clear Calc 52.58 Est GFR (MDRD) Af Amer 72 Est GFR (MDRD) Non-Af 59 L BUN/Creatinine Ratio 15.7 Glucose 123 H Calcium 9.0 Troponin I High Sens 3 B-Natriuretic Peptide 40.9 Radiography Diagnostic Testing: Clinical Impression(s) from Imaging Studies Chest X-Ray 05/03/23 21:30 IMPRESSION: Minimal bibasilar scarring and/or atelectasis without dense consolidative airspace disease suggesting pneumonia. Electronically Signed: Usman Aguilar DO at 21:55 EST , Rhythm Strip Rhythm Strip: Sinus Rhythm Rate: 70 Ectopy: None EKG Initial EKG: Attestation: I personally reviewed and interpreted this EKG as follows: Interpretation: Sinus Rhythm and No Acute Injury Pattern Comments: nml EKG w/ motion artifact in precordial leads Discharge Plan Triage Chief Complaint: Shortness of Breath ED Provider: Gwyn Boateng Dx/Rx/DC Orders Clinical Impression: Chest tightness, Reactive airway disease with wheezing Instructions: COPD: Wheezing and Chest Tightness Prescriptions: New albuterol sulfate [Ventolin HFA] 90 mcg/actuation HFA aerosol inhaler 2 puff inhalation Q4H PRN PRN (Reason: Wheezing) Qty: 1 0RF No Action aspirin 81 MG tablet 81 mg PO DAILY@0800 atorvastatin 40 mg tablet 80 mg PO QHS losartan 100 mg tablet 100 mg PO DAILY Qty: 90 3RF metoprolol succinate 50 mg tablet extended release 24 hr 50 mg PO BID Qty: 180 3RF Primary Care Provider: Mohamud Flores Referrals: Mohamud Flores MD [Primary Care Provider] - As soon as possible Disposition Disposition: Home, Self Care
[2023-05-03 21:29] VITALS: BP 158/91; PULSE 73; RESP 20; TEMP 36.4; O2SAT 94
--- NOTE | 2023-05-03 21:30 | RAD_ITS ---
EXAM: XR CHEST, 2 VIEWS CLINICAL INDICATION: cp/sob TECHNIQUE: Frontal and lateral views of the chest. COMPARISON: 02/06/2020 chest radiograph and 02/13/2020 CT chest. FINDINGS: LUNGS AND PLEURAL SPACES: Minimal bibasilar scarring and/or atelectasis without dense consolidative airspace disease suggesting pneumonia. No pneumothorax. No effusion. HEART: No significant abnormality. Cardiac silhouette not enlarged. MEDIASTINUM: Central airways and mediastinal contour are unremarkable. BONES/JOINTS: Degenerative changes in the spine. SOFT TISSUES: No significant abnormality. VASCULATURE: Atherosclerosis. RAD/Chest PA and Lateral IMPRESSION: Minimal bibasilar scarring and/or atelectasis without dense consolidative airspace disease suggesting pneumonia. Electronically Signed: Usman Aguilar DO at 21:55 EST ,
[2023-05-03 22:03] VITALS: BP 130/90; PULSE 77; RESP 16; O2SAT 97
[2023-05-03 22:06] LABS: Absolute Lymphocyte Count 0.72 X10^3/uL (0.83-4.51); Absolute Neutrophil Count 7.7 X10^3/uL (2.0-7.7); Basophil# 0.03 X10^3/uL; Basophil% 0.3 % (0-1); Eosinophil# 0.06 X10^3/uL; Eosinophils% 0.7 % (0-5); Hematocrit 49.4 % (40-54); Hemoglobin 16.5 g/dL (13.0-16.5); Lymphocyte # 0.72 X10^3/ul (0.83-4.51); Mean Corp Hgb Conc 33.4 g/dL (32-36); Mean Corpuscular Hgb 30.3 pg (27.0-32.0); Mean Corpuscular Volume 90.6 fL (80-94); Mean Platelet Vol. 10.5 fl (6.2-12.0); Monocyte# 0.47 X10^3/uL; Monocyte% 5.2 % (0-10); NRBC Flagged by Analyzer 0 % (0-5); Neutrophil # 7.72 X10^3/uL (2.7-7.7); Neutrophil % 85.6 % (47-70); Platelet Count 158 K/mm3 (150-450); RBC Distribution Width CV 13.4 % (11.6-14.6); RBC Distribution Width SD 44.9 fl (35.1-43.9); Red Blood Count 5.45 M/mm3 (4.6-6.2)
[2023-05-03 22:09] VITALS: BP 130/90; PULSE 77; RESP 16; TEMP 36.6; O2SAT 97
[2023-05-03 22:22] LABS: Anion Gap 2 (5-15); BUN 20 mg/dL (7-18); BUN/Creat Ratio 15.7 RATIO (10-20); Chloride 109 mmol/L (98-107); Creatinine, Serum 1.27 mg/dL (0.70-1.30); EST Glomerular Filtration Rate 59 mL/min (>60); Est Glom Filt Rate - Afr Amer 72 mL/min (>60); Estimated Creatinine Clearance 52.58 ml/min; Glucose 123 mg/dL (74-106); Potassium 3.7 mmol/L (3.5-5.1); Sodium Level 141 mmol/L (136-145); Troponin-I HS 3 pg/mL (3.0-78.0)
[2023-05-03 22:25] LABS: BNP,B-Type NATRIURETIC PEPTIDE 40.9 pg/mL (0-100)
[2023-05-03 23:07] VITALS: BP 130/90; PULSE 77; RESP 20; O2SAT 94
== END 2023-05-03 23:08 | disposition home or self-care (01) ==
PROVIDERS: Emergency Provider Emergency Medicine; PCP Internal Medicine; Visit Provider Emergency Medicine
DX: R07.89 Other chest pain (principal); I69.354 Hemiplegia and hemiparesis following cerebral infarction affecting left non-dominant side; J45.909 Unspecified asthma, uncomplicated; E78.5 Hyperlipidemia, unspecified; I10 Essential (primary) hypertension; F17.210 Nicotine dependence, cigarettes, uncomplicated; Z79.82 Long term (current) use of aspirin; Z79.899 Other long term (current) drug therapy
CPT/HCPCS: 71046; 80048; 83880; 84484; 85025; 87428; 93005; 99285; A4216

== ENCOUNTER → 2023-09-07 | Outpatient (CLI) | payer MEDICARE, SELFPAY ==
--- NOTE | 2023-09-07 09:46 | ART_ITS ---
Reason For Study: BLE Toe Ulcers Procedure A bilateral lower extremity continuous wave Doppler with analog waveform analysis,segmental pressures,and ankle brachial indexes without exercise. Left Segmental Pressures Left brachial= 122mmHg. Left posterior tibial artery = 131mmHg. Left dorsalis pedis artery = 111mmHg. Left digit = 77 mmHg. The left posterior tibial artery waveforms are triphasic. The left dorsalis pedis waveforms are biphasic. Right Segmental Pressures Right brachial= 114mmHg. Right posterior tibial artery = 127mmHg. Right dorsalis pedis artery = 123mmHg. Unable to acquire TBI. The right posterior tibial artery waveforms are triphasic. The right dorsalis pedis waveforms are triphasic. Indices The right ankle brachial index by the posterior tibial artery is 1.04. The right ankle brachial index by the dorsalis pedis is 1.01. The left ankle brachial index by the posterior tibial artery is 1.07. The left ankle brachial index by the dorsalis pedis is 0.91. The left digital-brachial index is 0.63. VL/Lower Ext Art Exam w/o Exercis Interpretation Summary Right MARIA A 1.04, normal. Doppler/PVR waveforms of the right ankle normal at rest . Unable to otain digit waveforms or pressures, pedal/digit disease vs spasm. Left MARIA A 1.07, normal. Doppler/PVR waveforms of the left ankle normal at rest. TBI and digit waveforms diminished, pedal/digit disease vs spasm Ordering Physician: Kevin Oakley Referring Physician: Mohamud Flores Performed By: Mario Hannon, RVT
== END | disposition home or self-care (01) ==
LOC: CVS 09:45
PROVIDERS: PCP Internal Medicine; Referring Provider Surgery Trauma Surgery; Visit Provider Surgery Trauma Surgery
DX: I73.9 Peripheral vascular disease, unspecified (principal)
CPT/HCPCS: 93923

== ENCOUNTER → 2023-11-17 | Outpatient (CLI) | payer MEDICARE, SELFPAY ==
[2023-11-17 16:45] LABS: Absolute Neutrophil Count 4.6 X10^3/uL (2.0-7.7); Basophil# 0.05 X10^3/uL; Basophil% 0.7 % (0-1); Eosinophil# 0.13 X10^3/uL; Eosinophils% 1.9 % (0-5); Hemoglobin 15.9 g/dL (13.0-16.5); Lymphocyte % 23.1 % (19-41); Mean Corp Hgb Conc 33.1 g/dL (32-36); Mean Corpuscular Hgb 29.8 pg (27.0-32.0); Mean Corpuscular Volume 89.9 fL (80-94); Mean Platelet Vol. 10.9 fl (6.2-12.0); Monocyte# 0.54 X10^3/uL; Monocyte% 7.8 % (0-10); NRBC Flagged by Analyzer 0 % (0-5); Neutrophil # 4.61 X10^3/uL (2.7-7.7); Neutrophil % 66.4 % (47-70); Platelet Count 192 K/mm3 (150-450); RBC Distribution Width CV 13.9 % (11.6-14.6); RBC Distribution Width SD 45.7 fl (35.1-43.9); Red Blood Count 5.34 M/mm3 (4.6-6.2); White Blood Count 6.9 K/mm3 (4.4-11.0)
[2023-11-17 17:09] LABS: ALB/GLOB Ratio 1.1 RATIO (0.9-2.4); AST(SGOT) 26 U/L (15-37); Alanine Aminotransfer ALT/SGPT 27 U/L (16-61); Albumin, Serum 3.5 g/dL (3.2-5.0); Alkaline Phosphatase 64 U/L (45-117); Anion Gap 5 (5-15); BUN 18 mg/dL (7-18); BUN/Creat Ratio 12.3 RATIO (10-20); Calcium,Total 8.9 mg/dL (8.5-10.1); Chloride 110 mmol/L (98-107); Cholesterol 98 mg/dL (200); Creatinine, Serum 1.46 mg/dL (0.70-1.30); EST Glomerular Filtration Rate 50 mL/min (>60); Est Glom Filt Rate - Afr Amer 61 mL/min (>60); Globulin 3.3 g/dL (2.2-4.2); Glucose 98 mg/dL (74-106); High Density Lipoprotein 33 mg/dL; Potassium 3.9 mmol/L (3.5-5.1); Protein, Total 6.8 g/dL (6.4-8.2); Sodium Level 141 mmol/L (136-145); Triglycerides 123 mg/dL; Very Low Density Lipoprotein 25 mg/dL (5-40)
== END | disposition home or self-care (01) ==
LOC: BIMLAB 14:50
PROVIDERS: PCP Internal Medicine; Visit Provider Internal Medicine
DX: I10 Essential (primary) hypertension (principal); N40.0 Benign prostatic hyperplasia without lower urinary tract symptoms
CPT/HCPCS: 36415; 80053; 80061; 84153; 85025; G0103

== ENCOUNTER → 2024-03-28 | Outpatient (CLI) | payer MEDICARE, SELFPAY ==
[2024-03-28 12:03] LABS: Absolute Lymphocyte Count 1.74 X10^3/uL (0.83-4.51); Absolute Neutrophil Count 5.6 X10^3/uL (2.0-7.7); Basophil# 0.06 X10^3/uL; Basophil% 0.7 % (0-1); Eosinophils% 1.2 % (0-5); Hematocrit 49.1 % (40-54); Hemoglobin 16.1 g/dL (13.0-16.5); Lymphocyte # 1.74 X10^3/ul (0.83-4.51); Lymphocyte % 21.3 % (19-41); Mean Corp Hgb Conc 32.8 g/dL (32-36); Mean Corpuscular Hgb 29.7 pg (27.0-32.0); Mean Corpuscular Volume 90.4 fL (80-94); Mean Platelet Vol. 10.3 fl (6.2-12.0); Monocyte# 0.66 X10^3/uL; Monocyte% 8.1 % (0-10); NRBC Flagged by Analyzer 0 % (0-5); Neutrophil # 5.55 X10^3/uL (2.7-7.7); Platelet Count 320 K/mm3 (150-450); RBC Distribution Width CV 13.7 % (11.6-14.6); RBC Distribution Width SD 45.3 fl (35.1-43.9); Red Blood Count 5.43 M/mm3 (4.6-6.2); White Blood Count 8.2 K/mm3 (4.4-11.0)
[2024-03-28 12:21] LABS: Vitamin D,25 Hydroxy 37.2 ng/mL
[2024-03-28 12:45] LABS: ALB/GLOB Ratio 0.8 RATIO (0.9-2.4); AST(SGOT) 23 U/L (15-37); Alanine Aminotransfer ALT/SGPT 46 U/L (16-61); Albumin, Serum 3.3 g/dL (3.2-5.0); Alkaline Phosphatase 67 U/L (45-117); Anion Gap 5 (5-15); BUN 19 mg/dL (7-18); BUN/Creat Ratio 13.3 RATIO (10-20); Calcium,Total 9.3 mg/dL (8.5-10.1); Chloride 110 mmol/L (98-107); Creatinine, Serum 1.43 mg/dL (0.70-1.30); EST Glomerular Filtration Rate 52 mL/min (>60); Est Glom Filt Rate - Afr Amer 62 mL/min (>60); Glucose 100 mg/dL (74-106); Protein, Total 7.3 g/dL (6.4-8.2); Sodium Level 142 mmol/L (136-145); T4 Free Direct 1.28 ng/dL (0.76-1.46)
== END | disposition home or self-care (01) ==
LOC: BIMLAB 10:48
PROVIDERS: PCP Internal Medicine; Referring Provider Internal Medicine; Visit Provider Internal Medicine
DX: I10 Essential (primary) hypertension (principal); E55.9 Vitamin D deficiency, unspecified
CPT/HCPCS: 36415; 80053; 82306; 84439; 84443; 85025

== ENCOUNTER → 2024-08-03 | Outpatient (CLI) | payer MEDICARE, SELFPAY ==
[2024-08-03 12:33] LABS: Absolute Lymphocyte Count 1.65 X10^3/uL (0.83-4.51); Basophil# 0.06 X10^3/uL; Basophil% 0.7 % (0-1); Eosinophil# 0.12 X10^3/uL; Eosinophils% 1.4 % (0-5); Hematocrit 49.5 % (40-54); Hemoglobin 16.1 g/dL (13.0-16.5); Lymphocyte # 1.65 X10^3/ul (0.83-4.51); Mean Corp Hgb Conc 32.5 g/dL (32-36); Mean Corpuscular Hgb 29.7 pg (27.0-32.0); Mean Corpuscular Volume 91.3 fL (80-94); Mean Platelet Vol. 10.6 fl (6.2-12.0); Monocyte# 0.86 X10^3/uL; Monocyte% 9.9 % (0-10); NRBC Flagged by Analyzer 0 % (0-5); Neutrophil # 5.95 X10^3/uL (2.7-7.7); Neutrophil % 68.4 % (47-70); Platelet Count 212 K/mm3 (150-450); RBC Distribution Width CV 14.4 % (11.6-14.6); RBC Distribution Width SD 47.9 fl (35.1-43.9); Red Blood Count 5.42 M/mm3 (4.6-6.2); White Blood Count 8.7 K/mm3 (4.4-11.0)
[2024-08-03 12:56] LABS: AST(SGOT) 21 U/L (15-37); Alanine Aminotransfer ALT/SGPT 29 U/L (16-61); Albumin, Serum 3.7 g/dL (3.2-5.0); Alkaline Phosphatase 72 U/L (45-117); Anion Gap 5 (5-15); BUN 25 mg/dL (7-18); Calcium,Total 9.2 mg/dL (8.5-10.1); Chloride 110 mmol/L (98-107); Cholesterol 111 mg/dL (200); Creatinine, Serum 1.47 mg/dL (0.70-1.30); EST Glomerular Filtration Rate 50 mL/min (>60); Est Glom Filt Rate - Afr Amer 60 mL/min (>60); Globulin 3.6 g/dL (2.2-4.2); Glucose 89 mg/dL (74-106); High Density Lipoprotein 34 mg/dL; Potassium 4.1 mmol/L (3.5-5.1); Protein, Total 7.3 g/dL (6.4-8.2); Sodium Level 142 mmol/L (136-145); Triglycerides 185 mg/dL; Very Low Density Lipoprotein 37 mg/dL (5-40)
== END | disposition home or self-care (01) ==
LOC: BIMLAB 10:23
PROVIDERS: PCP Internal Medicine; Referring Provider Internal Medicine; Visit Provider Internal Medicine
DX: I10 Essential (primary) hypertension (principal); I51.7 Cardiomegaly
CPT/HCPCS: 36415; 80053; 80061; 85025

== ENCOUNTER → 2025-02-01 | Outpatient (CLI) | payer MEDICARE, SELFPAY ==
[2025-02-01 12:56] LABS: Anion Gap 13 (5-15); BUN 22 mg/dL (4-19); BUN/Creat Ratio 17.0 RATIO (10-20); Calcium,Total 9.4 mg/dL (7.6-11.0); Carbon Dioxide 23.9 mmol/L (21.0-32.0); Chloride 105 mmol/L (98-108); Glucose 89 mg/dL (70-99); PSA,Total - Annual Screen 5.84 ng/mL (0.02-4.00); Potassium 4.1 mmol/L (3.3-5.1)
== END | disposition home or self-care (01) ==
LOC: LAB 11:13
PROVIDERS: PCP Internal Medicine; Referring Provider Internal Medicine; Visit Provider Internal Medicine
DX: I10 Essential (primary) hypertension (principal); Z12.5 Encounter for screening for malignant neoplasm of prostate
CPT/HCPCS: 36415; 80048; 84153; G0103